=== PATIENT | male | born 1940 | race Caucasian/White ===

== ENCOUNTER 2020-07-05 01:00 | Inpatient (IN) | payer MEDICARE, OTHER ==
[~2020-07-05] VITALS: Ht 175.3 cm; Wt 66.7 kg
--- OUTSIDE RECORDS SUMMARY | ~2020-07-05 | XMS | Clinical Summary ---
Demographics + + + | Address | [address] | | | [place] [address] | + + + | Home Phone | | + + + | Preferred Language | Unknown | + + + | Marital Status | | + + + | Gnosticist Affiliation | Unknown | + + + | Race | Unknown | + + + | Ethnic Group | Unknown | + + + Author + + + | Author | [facility] | | | and [place] | + + + | Organization | [facility] | | | and [place] | + + + | Address | Unknown | + + + | Phone | Unavailable | + + + Support + + +---------+ + | Name | Relationship | Address | Phone | + + +---------+ + | Alison Agosto | ECON | Unknown | | + + +---------+ + Care Team Providers + +------+ + | Care Stained Glass Installer Name | Role | Phone | + +------+ + | Provider Not, In System | PCP | Unavailable | + +------+ + Allergies + + + + + + | Active Allergy | Reactions | Severity | Noted | Comments | | | | | Date | | + + + + + + | Penicillins | Rash | Low | 06/03/20 | | | | | | 20 | | + + + + + + Medications + + + +---------+------+------+-------+ | Medication | Sig | Dispensed | Refills | Star | End | Statu | | | | | | t | Date | s | | | | | | Date | | | + + + +---------+------+------+-------+ | lamoTRIgine | Take 50 mg by mouth | | 0 | | | Activ | | (LAMICTAL) 150 MG | 2 times daily . | | | | | e | | tablet | | | | | | | + + + +---------+------+------+-------+ | folic acid | Take 400 mcg by | | 0 | | | Activ | | (FOLVITE) 800 MCG | mouth Daily. 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 No further cardiac testing or treatment is | | indicated for this problem at this time. | + + + + + | Other hyperlipidemia | 06/03/2020 | + + + + + | Last Assessment & Plan: Currently diet controlled. Will | | obtain a lipid panel to further evaluate. | + + + + + | TOBIAS (dyspnea on exertion) | 06/03/2020 | + + + + + | Last Assessment & Plan: Unknown etiology. Differential | | diagnosis includes structural heart disease, CAD and/or anemia | | amongst others. Patient's exercise SPECT MPI was equivocal with | | normal perfusion imaging however abnormal ECG response to | | exercise.He is reluctant to consider proceeding to left heart | | cath at this time, we can rule out structural heart disease in | | the meantime with a resting 2D echocardiogram. Further | | recommendations pending results of testing. | + + Encounters +--------+ + + + + | Date | Type | Specialty | Care Team | Description | +--------+ + + + + | 07/03/ | Telephone | Neurology | Meliza Gomez, | Referral | | 2019 | | | MD | | +--------+ + + + + | 06/24/ | Office | Cardiology | Ricky, | TOBIAS (dyspnea on | | 2019 | Visit | | MD Nat | exertion) (Primary | | | | | | Dx); Chest pain, | | | | | | unspecified type; | | | | | | Other hyperlipidemia | +--------+ + + + + | 06/12/ | Hospital | Radiology | Ricky, | TOBIAS (dyspnea on | | 2020 | Encounter | | MD Nat | exertion) | +--------+ + + + + | 06/03/ | Office | Cardiology | Ricky, | Chest pain, | | 2020 | Visit | | MD Nat | unspecified type | | | | | | (Primary Dx); TOBIAS | | | | | | (dyspnea on | | | | | | exertion); | | | | | | Hyperlipidemia, | | | | | | unspecified | | | | | | hyperlipidemia type; | | | | | | Other | | | | | | hyperlipidemia | +--------+ + + + + from Last 3 Months Family History + +------+ + + | Relation | Name | Status | Comments | + +------+ + + | Father | | | | + +------+ + + | Mother | | | | + +------+ + + Social History + +-------+ +--------+------+ | Tobacco Use | Types | Packs/Day | Years | Date | | | | | Used | | + +-------+ +--------+------+ | Never Smoker | | | | | + +-------+ +--------+------+ + +---+---+---+ | Smokeless Tobacco: | | | | | Never Used | | | | + +---+---+---+ + + +---------+ + | Alcohol Use | Drinks/Week | oz/Week | Comments | + + +---------+ + | Yes | | | rarely | + + +---------+ + + + + | Sex Assigned at | Date Recorded | | | | + + + | Not on file | | + + + Last Filed Vital Signs + + + + + | Vital Sign | Reading | Time Taken | Comments | + + + + + | Blood Pressure | 142/76 | 06/24/2020 11:09 AM | | | | | PDT | | + + + + + | Pulse | 88 | 06/24/2020 11:09 AM | | | | | PDT | | + + + + + | Temperature | 36.8 C (98.2 F) | 06/24/2020 11:09 AM | | | | | PDT | | + + + + + | Respiratory Rate | - | - | | + + + + + | Oxygen Saturation | 98% | 06/24/2020 11:09 AM | | | | | PDT | | + + + + + | Inhaled Oxygen | - | - | | | Concentration | | | | + + + + + | Weight | 67.4 kg (148 lb 9.6 | 06/24/2020 11:09 AM | | | | oz) | PDT | | + + + + + | Height | 165.1 cm (5' 5") | 06/24/2020 11:09 AM | | | | | PDT | | + + + + + | Body Mass Index | 24.73 | 06/24/2020 11:09 AM | | | | | PDT | | + + + + + Plan of Treatment +--------+---------+ + + + | Date | Type | Specialty | Care Team | Description | +--------+---------+ + + + | 08/28/ | Office | Neurology | Meliza Gomez, | | | 2019 | Visit | | MD Ruth ALCAZAR | | | | | | [address] | | | | | | [place] [id number] | | | | | | [phone] | | | | | | | | +--------+---------+ + + + + + +-------+ + | Health Maintenance | Due Date | Last | Comments | | | | Done | | + + +-------+ + | Hepatitis C | | | | | Screening | 2 | | | + + +-------+ + | Vaccine: | | | | | Dtap/Tdap/Td (1 - | 1 | | | | Tdap) | | | | + + +-------+ + | Vaccine: Zoster (1 | | | | | of 2) | 2 | | | + + +-------+ + | Vaccine: | | | | | Pneumococcal 65+ (1 | 7 | | | | of 1 - PPSV23) | | | | + + +-------+ + | Adult Annual | | | | | Wellness Visit | 0 | | | + + +-------+ + | Vaccine: Influenza | | | | | (#1) | 0 | | | + + +-------+ + Procedures + +--------+ + + + | Procedure Name | Priori | Date/Time | Associated Diagnosis | Comments | | | ty | | | | + +--------+ + + + | NM NUCLEAR STRESS | Routin | 06/24/2020 | TOBIAS (dyspnea on | Results for this | | TEST (EXERCISE) | e | 11:18 AM | exertion) | procedure are in the | | | | PDT | | results section. | + +--------+ + + + | ECG 12 LEAD | Routin | 06/03/2020 | Chest pain, | Results for this | | | e | 1:49 PM | unspecified type | procedure are in the | | | | PDT | | results section. | + +--------+ + + + from Last 3 Months Results NM Nuclear Stress Test (Exercise) (06/24/2020 11:18 AM PDT) + +--------+ + + + | Component | Value | Ref Range | Performed | Pathologist | | | | | At | Signature | + +--------+ + + + | BASELINE | 62 | bpm | [facility] | | | HEART RATE | | | | | + +--------+ + + + | BASELINE | 139/67 | mmHg | [facility] | | | BLOOD | | | | | | PRESSURE | | | | | + +--------+ + + + | PEAK HEART | 62 | | [facility] | | | RATE | | | | | + +--------+ + + + | PEAK BLOOD | 165/64 | mmHG | [facility] | | | PRESSURE | | | | | + +--------+ + + + | Target HR | 122 | | [facility] | | + +--------+ + + + | Exercise | 34 | sec | [facility] | | | duration | | | | | | (sec) | | | | | + +--------+ + + + | Percent HR | 43 | | [facility] | | + +--------+ + + + | Exercise | 7 | min | [facility] | | | duration | | | | | | (min) | | | | | + +--------+ + + + | Estimated | 10.1 | METS | [facility] | | | workload | | | | | + +--------+ + + + | Max | 143 | | [facility] | | | Predicted | | | | | | HR | | | | | + +--------+ + + + | LVEF-SPECT | 73 | % | [facility] | | | NUCLEAR | | | | | | STRESS/VIAB | | | | | | ILITY | | | | | + +--------+ + + + | NM stress | 71 | | [facility] | | | end | | | | | | diastolic | | | | | | volume | | | | | + +--------+ + + + | NM stress | 19 | | [facility] | | | end | | | | | | systolic | | | | | | volume | | | | | + +--------+ + + + | NM rest end | 76 | | [facility] | | | diastolic | | | | | | volume | | | | | + +--------+ + + + | NM rest end | 21 | | [facility] | | | systolic | | | | | | volume | | | | | + +--------+ + + + | TID VALUE | 0.87 | | [facility] | | + +--------+ + + + | Angina | 2 | | [facility] | | | Index | | | | | + +--------+ + + + | ST | 2.0 | mm | [facility] | | | Depression | | | | | | (mm) | | | | | + +--------+ + + + | Murray | -10 | | [facility] | | | Treadmill | | | | | | Score | | | | | + +--------+ + + + + + | Specimen | + + | | + + + + | Addenda | + + | Addendum by Nat Hoffmann MD on 06/24/2020 11:51 AM Left ventricle | | perfusion is normal. There is no inducible ischemia. There is diaphragmatic | | attenuation artifact present. The LV function is normal. Left ventricular ejection | | fraction was 73%. The ECG portion of this test is abnormal. This is a positive test | | by ECG criteria, but nucler imaging is normal. The computer-calculated TID score | | is 0.87. Murray Treadmill Score =-10 (Moderate Risk) Overall abnormal maximal | | exercise SPECT MPI nuclear stress test due to development of exercise limiting dyspnea | | (potential anginal equivalent) and up to [address] segment depression in inferior and | | lateral leads. | + + + + + | Narrative | Performed At | + + + | Left | [facility] | | ventricle perfusion is normal. There is no inducible ischemia. There | | | is diaphragmatic attenuation artifact present. The LV function is | | | normal. Left ventricular ejection fraction was 73%. The ECG portion | | | of this test is abnormal. This is a positive test by ECG criteria, but | | | nucler imaging is normal. The computer-calculated TID score is | | | 0.87. Murray Treadmill Score =-10 (Moderate Risk) Overall abnormal | | | maximal exercise SPECT MPI nuclear stress test due to development of | | | exercise limiting dyspnea (potential anginal equivalent) and up to 2 | | | mm ST segment depression in inferior and lateral leads. | | |and up to [address] segment depression in inferior and lateral leads. | | | | | + + + + +---------+ + + | Performing | Address | City/State/Zipcode | Phone Number | | Organization | | | | + +---------+ + + | [facility] | | | | + +---------+ + + ECG 12 lead (06/03/2020 1:49 PM PDT) + + + + + + | Component | Value | Ref Range | Performed | Pathologist | | | | | At | Signature | + + + + + + | VENTRICULAR | 67 | BPM | [facility] | | | RATE EKG | | | | | + + + + + + | ATRIAL RATE | 67 | BPM | [facility] | | + + + + + + | P-R | 164 | ms | [facility] | | | INTERVAL | | | | | + + + + + + | QRS | 86 | ms | [facility] | | | DURATION | | | | | + + + + + + | Q-T | 380 | ms | [facility] | | | INTERVAL | | | | | + + + + + + | Q-T | 401 | ms | [facility] | | | INTERVAL | | | | | | (CORRECTED) | | | | | + + + + + + | P WAVE AXIS | 73 | degrees | [facility] | | + + + + + + | QRS AXIS | 78 | degrees | [facility] | | + + + + + + | T AXIS | 77 | degrees | [facility] | | + + + + + + | INTERPRETAT | Sinus rhythm with | | [facility] | | | ION TEXT | occasional Premature | | | | | | ventricular | | | | | | complexesOtherwise | | | | | | normal ECGNo previous | | | | | | ECGs availableConfirmed | | | | | | by MD RICKY, | | | | | | ANY ([id number]) on | | | | | | 06/04/2020 5:38:54 PM | | | | + + + + + + + + | Specimen | + + | | + + + + + | Narrative | Performed At | + + + | | | + + + + +---------+ + + | Performing | Address | City/State/Zipcode | Phone Number | | Organization | | | | + +---------+ + + | [facility] | | | | + +---------+ + + from Last 3 Months Insurance + +--------+ +--------+ +---------+--------+ | Payer | Benefi | Subscriber | Effect | Phone | Address | Type | | | t Plan | ID | [place] | | | | | | / | | Dates | | | | | | Group | | | | | | + +--------+ +--------+ +---------+--------+ | MEDICARE | MEDICA | [id number] | | [phone] | | Medica | | | RE | | 007-Pr | 5 | | re | | | PART A | | esent | | | | | | AND B | | | | | | + +--------+ +--------+ +---------+--------+ | | TRICAR | [id number] | 6/29/2 | [phone] | | Indemn | | | E FOR | | 020-Pr | 0 | | ity | | | LIFE | | esent | | | | + +--------+ +--------+ +---------+--------+ + +--------+ +--------+ + + | Guarantor Name | Accoun | Relation to | Date | Phone | Billing Address | | | t Type | Patient | of | | | | | | | | | | + +--------+ +--------+ + + | Abdifatah Ledbetter | Person | Self [birth year] [address] | | | al/Fam | | 1940 | [phone] | [place] | | | [place] | | | [address] (Home) | [address] | + +--------+ +--------+ + + Advance Directives + + + + + | Type | Date Recorded | Patient | Explanation | | | | 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
--- OUTSIDE RECORDS SUMMARY | ~2020-07-05 | XMS | Encounter Summary ---
Demographics + + + | Address | [address] | | | [place] [address] | + + + | Home Phone | | + + + | Preferred Language | Unknown | + + + | Marital Status | | + + + | Yazidism Affiliation | Unknown | + + + | Race | Unknown | + + + | Ethnic Group | Unknown | + + + Author + + + | Author | [facility] | | | and [place] | + + + | Organization | [facility] | | | and [place] | + + + | Address | Unknown | + + + | Phone | Unavailable | + + + Support + + +---------+ + | Name | Relationship | Address | Phone | + + +---------+ + | Vaneatuljackjuan Agosto | ECON | Unknown | | + + +---------+ + Care Team Providers + +------+ + | Care Bpm Architect Name | Role | Phone | + +------+ + | Provider Not, In System | PCP | Unavailable | + +------+ + Reason for Referral Diagnostic/Screening (Routine) + +--------+ + + + + | Status | Reason | Specialty | Diagnoses / | Referred By | Referred To | | | | | Procedures | Contact | Contact | + +--------+ + + + + | Authorized | | Radiology | Diagnoses | | Geovanni | | | | | TOBIAS | Tahira, | Cardiology | | | | | (dyspnea on | MD Nat | Madelyn Nuc | | | | | exertion) | 1100 | Med 1100 | | | | | Procedures | OTTONIEL COLON | OTTONIEL COLON | | | | | NM Nuclear | DARLENE F | [place], [place] | | | | | Stress Test | [place], [place] | [address] | | | | | (Exercise) | [id number] | Phone: | | | | | | Phone: | [phone] | | | | | | [phone] | Fax: | | | | | | Fax: | [phone] | | | | | | [phone] | | + +--------+ + + + + Reason for Visit + + + | Reason | Comments | + + + | Establish Care | | + + + Evaluate & Treat (Routine) + +--------+ + + + + | Status | Reason | Specialty | Diagnoses / | Referred By | Referred To | | | | | Procedures | Contact | Contact | + +--------+ + + + + | Authorized | | Cardiology | Diagnoses | Charly, | | | | | | Chest pain, | Telly Hairston | Tahira, | | | | | unspecified | [address] | MD Nat | | | | | Procedures | [address] | [address] | | | | | Consult | [place] | [address] | | | | | | [place] [address] | [place], [place] | | | | | | Phone: | [address] Phone: | | | | | | [phone] | [phone] | | | | | | Fax: | Fax: | | | | | | [phone] | [phone] | + +--------+ + + + + Encounter Details +--------+---------+ + + + | Date | Type | Department | Care Team | Description | +--------+---------+ + + + | 06/03/ | Office | [facility] | Tahira, | Chest pain, | | 2020 | Visit | CARDIOLOGY [place] | MD Nat 1100 | unspecified type | | | | [address] | [address]ON F | (Primary Dx); TOBIAS | | | | [place], [place] | [place] [address] | (dyspnea on | | | | [address] | [phone] | exertion); | | | | [phone] | | Hyperlipidemia, | | | | | | unspecified | | | | | | hyperlipidemia type; | | | | | | Other | | | | | | hyperlipidemia | +--------+---------+ + + + Social History + +-------+ +--------+------+ [...] on file | | + + + documented as of this encounter Last Filed Vital Signs + + + + + | Vital Sign | Reading | Time Taken | Comments | + + + + + | Blood Pressure | 138/70 | 06/03/2020 1:41 PM | | | | | PDT | | + + + + + | Pulse | 70 | 06/03/2020 1:41 PM | | | | | PDT | | + + + + + | Temperature | 36.7 C (98 F) | 06/03/2020 1:41 PM | | | | | PDT | | + + + + + | Respiratory Rate | - | - | | + + + + + | Oxygen Saturation | 99% | 06/03/2020 1:41 PM | | | | | PDT | | + + + + + | Inhaled Oxygen | - | - | | | Concentration | | | | + + + + + | Weight | 66.2 kg (146 lb) | 06/03/2020 1:41 PM | | | | | PDT | | + + + + + | Height | - | - | | + + + + + | Body Mass Index | - | - | | + + + + + documented in this encounter Progress Notes Nat Hoffmann MD - 06/03/2020 1:30 PM PDT Date of visit: 06/03/2020 Primary Care Physician: In System Provider Not CHIEF COMPLAINT: Chief Complaint Patient presents with [facility] Care HISTORY OF PRESENT ILLNESS: Abdifatah Baker is 79 y.o. male with past medical history of peptic/duodenal ulcer, anemia and hyperlipidemia who presents to establish cardiac care. He states that he has been exper iencing dyspnea on exertion over the past several months that has been getting progressively worse. He also has been experiencing left-sided precordial chest discomfort that he now at tributes to peptic ulcer disease because they appear to occur at the same time. REVIEW OF SYSTEMS: Review of Systems Constitutional: Negative. Respiratory: Positive for shortness of breath. Negative for cough and wheezing. Cardiovascular: Positive for chest pain. Negative for palpitations, orthopnea, claudication , leg swelling and PND. Gastrointestinal: Negative for nausea and vomiting. Neurological: Negative for dizziness and headaches. PHYSICAL EXAM: BP 138/70 | Pulse 70 | Temp 36.7 C (98 F) (Infrared Device) | Wt 66.2 kg (146 lb) | SpO2 99% Physical Exam Constitutional: Well-developed. Neck: No JVD present. No thyromegaly present. Cardiovascular: Regular rhythm, S1 normal and S2 normal. No murmur heard. Pulses: Carotid pulses are 2+ on the right side, and 2+ on the left side. Radial pulses are 2+ on the right side, and 2+ on the left side. Pulmonary/Chest: Effort normal and breath sounds normal. No wheezes. No rales. Abdominal: Soft. No tenderness. Musculoskeletal: No edema. DATA: Blood tests: No results found for: WBC, RBC, HGB, HCT, PLT No results found for: NA, K, CL, CO2, ANIONGAP, GLUF, BUN, CREATININE, EGFR No results found for: CHOL, TRIG, LDL, LDL, GLUF No results found for: BNP, TSH, CRP No results found for: TOTEPI EKG (06/03/2020): Performed and reviewed today. Normal sinus rhythm. PVCs. No prior ECG av ailable for comparison. Last Echo: Last stress test: Last cath: Carotid US: AAA screening: Lower extremity US: OTHERS: Plan ASSESSMENT & PLAN: Abdifatah Bakre is a 79 y.o. male with the following problems and associated assessment and plan Other hyperlipidemia Currently diet controlled. Will obtain a lipid panel to further evaluate. Chest pain Likely related to peptic/duodenal ulcer disease. No further cardiac testing or treatment i s indicated for this problem at this time. TOBIAS (dyspnea on exertion) Unknown etiology. Differential diagnosis includes CAD and/or anemia amongst others. Will further evaluate with an exercise nuclear stress test. Further recommendations pending resu lts of testing. Return for after stress test done. The following portions of the patient's history were reviewed and updated as appropriate: Allergies, current medications. Family history, past medical history, past social history, past surgical history. Problem list. Thank you for allowing me to participate in the care of this patient. Please, do not hesitate to contact me for any further questions. Nat Hoffmann MD 06/03/2020 documented in this encounter Miscellaneous Notes Assessment & Plan Note - Nat Hoffmann MD - 06/03/2020 2:20 PM PDTAssociated Problem (s): TOBIAS (dyspnea on exertion)Unknown etiology. Differential diagnosis includes CAD and/or anemia amongst others. Will further evaluate with an exercise nuclear stress test. Further recommendations pending results of testing.Electronically signed by MD ovidio Conklin 06/03/2020 2:21 PM PDTAssessment & Plan Note - Nat Hoffmann MD - 06/03/2020 2:19 PM PDTAssociated Problem(s): Chest painLikely related to peptic/duodenal ulcer disease. No further cardiac testing or treatment is indicated for this problem at this time.Electronical ly signed by Nat Hoffmann MD at 06/03/2020 2:20 PM PDTAssessment & Plan Note - Nat Mclean MD - 06/03/2020 2:19 PM PDTAssociated Problem(s): Other hyperlipidemiaCurrent ly diet controlled. Will obtain a lipid panel to further evaluate. documented in this encounter Plan of Treatment +--------+---------+ + + + | Date | Type | Specialty | Care Team | Description | +--------+---------+ + + + | 08/28/ | Office | Neurology | Meliza Gomez, | | | 2019 | Visit | | MD [address] | | | | | | [address] | | | | | | [place] [address] | | | | | | [phone] | | | | | | | | +--------+---------+ + + + + +------+--------+ + + | Name | Type | Priori | Associated Diagnoses | Order Schedule | | | | ty | | | + +------+--------+ + + | CBC with | Lab | Routin | TOBIAS (dyspnea on | 1 Occurrences | | Differential | | e | exertion) | starting 06/03/2020 | | | | | | until 06/03/2021 | + +------+--------+ + + | Lipid Panel | Lab | Routin | Hyperlipidemia, | 1 Occurrences | | | | e | unspecified | starting 06/03/2020 | | | | | hyperlipidemia type | until 06/03/2021 | + +------+--------+ + + documented as of this encounter Procedures + +--------+ + + + | [...] section. | + +--------+ + + + documented in this encounter Results NM Nuclear Stress Test (Exercise) (06/24/2020 [...] | | | | | by MD TAHIRA, | | | | | | ANY [phone]) on | | | | | | [...] | | | + +---------+ + + documented in this encounter Visit Diagnoses + + | Diagnosis | + + | Chest pain, unspecified type - Primary | + + | TOBIAS (dyspnea on exertion) Other dyspnea and respiratory abnormality | + + | Hyperlipidemia, unspecified hyperlipidemia type | + + documented in this encounter"
--- OUTSIDE RECORDS SUMMARY | ~2020-07-05 | XMS | Encounter Summary ---
Demographics + + + | Address | [address] | | | [place] [address] | + + + | Home Phone | | + + + | Preferred Language | Unknown | + + + | Marital Status | | + + + | Religion Affiliation | Unknown | + + + | Race | Unknown | + + + | Ethnic Group | Unknown | + + + Author + + + | Author | [facility] | | | and [place] | + + + | Organization | [facility] | | | and [...] Team Providers + +------+ + | Care Mental Health Case Manager Name | Role | Phone | + [...] | (dyspnea on | MD Nat | Eidson Nuc | | | | | exertion) | 1100 | Med 1100 | | | | | Procedures | OTTONIEL CLOON | [address] COLON | | | | | NM Nuclear | DARLENE F | [place], [place] | | | | | Stress Test | [place], [place] | [address] | | | | | (Exercise) | [id number] | Phone: | | | | | | Phone: | [phone] | | | | | | [phone] | Fax: | | | | | | Fax: | [phone] | | | | | | [phone] | | + +--------+ + + + + Reason for Visit Diagnostic/Screening (Routine) + +--------+ + + + [...] | (dyspnea on | MD Nat | Eidson Nuc | | | | | exertion) | 1100 | Med 1100 | | | | | Procedures | OTTONIEL COLON | OTTONIEL COLON | | | | | NM Nuclear | DARLENE F | [place], [place] | | | | | Stress Test | [place] | [address] | | | | | (Exercise) | [address] | Phone: | | | | | | Phone: | [phone] | | | | | | [phone] | Fax: | | | | | | Fax: | [phone] | | | | | | [phone] | | + +--------+ + + + + Encounter Details +--------+ + + + + | Date | Type | Department | Care Team | Description | +--------+ + + + + | 06/12/ | Hospital | [facility] | Tahira | JATINDER (dyspnea on | | 2020 | Encounter | CARDIOLOGY DEE[place]AY | MD Nat 1100 | exertion) | | | | NUC MED 1100 | [address]TTONIEL COLON | | | | | [address] | [place] [address] | | | | | [place], [place] | [phone] | | | | | [address] | | | | | | [phone] | | | +--------+ + + + + Social History + +-------+ [...] + + documented as of this encounter Medications at Time of Discharge + + + +---------+--------+ + | Medication | Sig | Dispensed | Refills | Start | End Date | | | | | | Date | | + + + +---------+--------+ + | folic acid | Take 400 mcg by | | 0 | | | | (FOLVITE) 800 MCG | mouth Daily. | | | | | | tablet | | | | | | + + + +---------+--------+ + | lamoTRIgine | Take 50 mg by mouth | | 0 | | | | (LAMICTAL) 150 MG | 2 times daily . | | | | | | tablet | | | | | | + + + +---------+--------+ + documented as of this encounter Plan of Treatment +--------+---------+ + + + | Date | Type | Specialty | Care Team | Description | +--------+---------+ + + + | 08/28/ | Office | Neurology | Meliza Gomez, | | | 2019 | Visit | | MD Ruth ALCAZAR | | | | | | [address] | | | | | | [place] [address] | | | | | | [phone] | | | | | | | | +--------+---------+ + + + documented as of this [...] + | Diagnosis | + + | TOBIAS (dyspnea on exertion) Other dyspnea and respiratory abnormality | + + documented in this encounter Administered Medications + +--------+ + +------+------+ | Medication Order | MAR | Action | Dose | Rate | Site | | | Action | Date | | | | + +--------+ + +------+------+ | technetium TC-99M sestamibi | Given | 06/12/20 | 11.2 | | | | (CARDIOLITE) injection 11.2 | | 20 10:45 | millicur | | | | millicurie 11.2 millicurie, | | AM PDT | ies | | | | Intravenous, ONCE, [facility] 06/12/20 at | | | | | | | 1115, For 1 dose, Nuclear | | | | | | | Medicine | | | | | | + +--------+ + +------+------+ +---+---+ | | | +---+---+ + +-------+ + +---+---+ | technetium TC-99M sestamibi | Given | 06/12/20 | 30.7 | | | | (CARDIOLITE) injection 30.7 | | 20 11:17 | millicur | | | | millicurie 30.7 millicurie, | | AM PDT | ies | | | | Intravenous, ONCE, Angela 06/12/20 at | | | | | | | 1115, For 1 dose, Nuclear | | | | | | | Medicine | | | | | | + +-------+ + +---+---+ +---+---+ | | | +---+---+ documented in this encounter"
--- OUTSIDE RECORDS SUMMARY | ~2020-07-05 | XMS | Encounter Summary ---
Demographics + + + | Address | [address] | | | [place] [address] | + + + | Home Phone | | + + + | Preferred Language | Unknown | + + + | Marital Status | | + + + | Judaism Affiliation | Unknown | + + + | Race | Unknown | + + + | Ethnic Group | Unknown | + + + Author + + + | Author | [facility] | | | and [place] | + + + | Organization | [facility] | | | [...] Team Providers + +------+ + | Care Addiction Nurse Name | Role | Phone | + +------+ + | Provider Not, In System | PCP | Unavailable | + +------+ + Reason for Visit + +--------+ + | Reason | Onset | Comments | | | Date | | + +--------+ + | Referral | 07/03/ | | | | 2020 | | + +--------+ + Encounter Details +--------+ + + + + | Date | Type | Department | Care Team | Description | +--------+ + + + + | 07/03/ | Telephone | [facility] | Meliza Gomez, | Referral | | 2020 | | NEUROLOGY [address] | MD [address] | | | | | [address] | [address] | | | | | [place], [place] | [place] [address] | | | | | [address] | [phone] | | | | | [phone] | | | +--------+ + + + [...] + + documented as of this encounter Miscellaneous Notes Telephone Encounter - Claudia Sol - 07[facility]03/2020 12[facility]03 [facility] and would like a call back. Additional Call Details: Calling to schedule from new referral. Please call back at mobile number in chart. If this is a symptom based call, was patient offered triage? Not Applicable If this is a symptom based call and you were unable to immediately transfer the call to a anny monteiro end user support specialist was caller made aware that if at any time he feels it is an emergency they diane uld call 911 or go to the nearest emergency room? not applicable documented in this encounter Plan of Treatment +--------+---------+ + + + | Date | Type | Specialty | Care Team | Description | +--------+---------+ + + + | 08/28/ | Office | Neurology | Meliza Gomez, | | | 2019 | Visit | | MD Ruth ALCAZAR | | | | | | [address] | | | | | | [place] [address] | | | | | | [phone] | | | | | | | | +--------+---------+ + + + documented as of this encounter Visit Diagnoses Not on filedocumented in this encounter"
--- OUTSIDE RECORDS SUMMARY | ~2020-07-05 | XMS | Encounter Summary ---
Demographics + + + | Address | [address] | | | [place] [address] | + + + | Home Phone | | + + + | Preferred Language | Unknown | + + + | Marital Status | | + + + | Scientology Affiliation | Unknown | + + + [...] | + + +---------+ + | Alison Diann Agosto | ECON | Unknown | | + + +---------+ + Care Team Providers + +------+ + | Care Investigator Cash Shortage Name | Role | Phone | + [...] + +--------+ + + + + | Pending | | Cardiology | Diagnoses | | VENU | | Review | | | TOBIAS | Tahira, | CARDIOLOGY | | | | | (dyspnea on | MD Nat | DEEJAY | | | | | exertion) | 1100 | [address] | | | | | Procedures | [address] | | | | | | ECHO | [address] | [place], [place] | | | | | Complete | [place], [place] | [address] | | | | | | [address] | Phone: | | | | | | Phone: | [phone] | | | | | | [phone] | Fax: | | | | | | Fax: | [phone] | | | | | | [phone] | | + +--------+ + + + + Evaluate & Treat (Routine) + + + + + + + | Status | Reason | Specialty | Diagnoses / | Referred By | Referred To | | | | | Procedures | Contact | Contact | + + + + + + + | Authorizatio | Specialty | Hematology / | Diagnoses | | Lawrence, | | n not | Services | Oncology | TOBIAS | Tahira, | Car Michael MD | | Required | Required | | (dyspnea on | MD Nat | [address] | | | | | exertion) | [address] | [address] | | | | | Hem/New | [address] | [place] | | | | | [address] | [address] | [place] [address] | | | | | | [place], [place] | Phone: | | | | | | [address] | [phone] | | | | | | Phone: | Fax: | | | | | | [phone] | [phone] | | | | | | Fax: | | | | | | | [phone] | | + + + + + + + Reason for Visit + + + | Reason | Comments | + + + | Follow-up | stress test | + + + Encounter Details +--------+---------+ + + + | Date | Type | Department | Care Team | Description | +--------+---------+ + + + | 06/24/ | Office | [facility] | Tahira | JATINDER (dyspnea on | | 2019 | Visit | CARDIOLOGY [place] | MD Nat [address] | exertion) (Primary | | | | [address] | [address] | Dx); Chest pain, | | | | [place], [place] | [place] [address] | unspecified type; | | | | [address] | [phone] | Other hyperlipidemia | | | | [phone] | | | +--------+---------+ + + + Social History [...] encounter Progress Notes Nat Hoffmann MD - 06/24/2020 11:00 AM PDT Date of visit: 06/24/2020 Primary Care Physician: In System Provider Not CHIEF COMPLAINT: Chief Complaint Patient presents with Follow-up stress test HISTORY OF PRESENT ILLNESS: Abdifatah Ledbetter is 79 y.o. male with past medical history of peptic/duodenal ulcer, anemia a nd hyperlipidemia who presents for follow-up. He continues to experience dyspnea on exertio n as previously described and has been getting progressively worse. He also continues to ex perience left-sided precordial chest discomfort that he attributes to peptic ulcer disease b ecause they appear to occur at the same time. REVIEW OF SYSTEMS: Review of Systems Constitutional: Negative. Respiratory: Positive for shortness of breath. Negative for cough and wheezing. Cardiovascular: Positive for chest pain. Negative for palpitations, orthopnea, claudication , leg swelling and PND. Gastrointestinal: Negative for nausea and vomiting. Neurological: Negative for dizziness and headaches. PHYSICAL EXAM: BP 142/76 | Pulse 88 | Temp 36.8 C (98.2 F) | Ht 1.651 m (5' 5") | Wt 67.4 kg (148 lb 9.6 oz) | SpO2 98% | BMI 24.73 kg/m Physical Exam Constitutional: Well-developed. Neck: No JVD [...] ailable for comparison. Last Echo: Last stress test (05/2020): Exercise SPECT MPI Left ventricle perfusion is normal. There is no inducible ischemia. There is diaphragmatic attenuation artifact present. The LV function is normal. Left ventricular ejection fraction was 73%. The ECG portion of this test is abnormal. This is a positive test by ECG criteria, but n ucler imaging is normal. The computer-calculated TID score is 0.87. Murray Treadmill Score =-10 (Moderate Risk) Overall abnormal maximal exercise SPECT MPI nuclear stress test due to development of exerc ise limiting dyspnea (potential anginal equivalent) and up to [address] segment depression in inferior and lateral leads. Last cath: Carotid US: AAA screening: Lower extremity US: OTHERS: Plan ASSESSMENT & PLAN: Abdifatah Ledbetter is a 79 y.o. male with the following problems and associated assessment and plan TOBIAS (dyspnea on exertion) Unknown etiology. Differential diagnosis includes structural heart disease, CAD and/or ane bunny amongst others. Patient's exercise SPECT MPI was equivocal with normal perfusion imaging however abnormal E CG response to exercise. He is reluctant to consider proceeding to left heart cath at this time, we can rule out str uctural heart disease in the meantime with a resting 2D echocardiogram. Further recommendat ions pending results of testing. Chest pain Likely related to peptic/duodenal ulcer disease. No further cardiac testing or treatment i s indicated for this problem at this time. Other hyperlipidemia Currently diet controlled. Will obtain a lipid panel to further evaluate. Return for after echo done. The following portions of the patient's history were reviewed and updated as appropriate: Allergies, current medications. Family history, past medical history, past social history, past surgical history. Problem list. Thank you for allowing me to participate in the care of this patient. Please, do not hesitate to contact me for any further questions. Nat Hoffmann MD 06/24/2020 documented in this encounter Miscellaneous Notes Assessment & Plan Note - Nat Hoffmann MD - 06/24/2020 11:14 AM PDTAssociated Problem (s): Other hyperlipidemiaCurrently diet controlled. Will obtain a lipid panel to further ev aluate. ssessment & Plan Note - Nat Hoffmann MD - 06/24/2020 11:13 AM PDTAssociated Problem(s): Chest pa inLikely related to peptic/duodenal ulcer disease. No further cardiac testing or treatment is indicated for this problem at this time. ssessment & Plan Note - Nat Hoffmann MD - 06/24/2020 11:13 A M PDTAssociated Problem(s): TOBIAS (dyspnea on exertion)Unknown etiology. Differential diagnos is includes structural heart disease, CAD and/or anemia amongst others. Patient's exercise SPECT MPI was equivocal with normal perfusion imaging however abnormal E CG response to exercise. He is reluctant to consider proceeding to left heart cath at this time, we can rule out str uctural heart disease in the meantime with a resting 2D echocardiogram. Further recommendat ions pending results of testing. documented in this encounter Plan of Treatment +--------+---------+ + + + | Date | Type | Specialty | Care Team | Description | +--------+---------+ + + + | 08/28/ | Office | Neurology | Meliza Gomez, | | 2019 | Visit | | MD Ruth ALCAZAR | | | | | | [address] | | | | | | [place] [address] | | | | | | [phone] | | | | | | | | +--------+---------+ + + + + + +--------+ + + | Name | Type | Priori | Associated Diagnoses | Order Schedule | | | | ty | | | + + +--------+ + + | ECHO Complete | Echocardiog | Routin | TOBIAS (dyspnea on | Expected: | | | steven | e | exertion) | 06/24/2020, Expires: | | | | | | 06/24/2021 | + + +--------+ + + + + +--------+ + + | Name | Type | Priori | Associated Diagnoses | Order Schedule | | | | ty | | | + + +--------+ + + | Ambulatory referral | Outpatient | Routin | TOBIAS (dyspnea on | Ordered: 06/24/2020 | | to Hematology | Referral | e | exertion) | | + + +--------+ + + documented as of this encounter Visit Diagnoses + + | Diagnosis | + + | TOBIAS (dyspnea on exertion) - Primary Other dyspnea and respiratory abnormality | + + | Chest pain, unspecified type | + + | Other hyperlipidemia | + + documented in this encounter
[2020-07-05] MEDS ORDERED: LAMICTAL100 MG PO (01:42)
--- NOTE | 2020-07-05 04:44 | NUR ---
PT ARRIVED TO THE FLOOR, FIRST UNIT OF BLOOD INFUSING AT 100MLS/HR, SITE WNL. PT A/O AND ORINETED TO ROOM, CALL LIGHT IN REACH. RADIAL DRILL OPERATOR FOR PLASTIC ADMITING PT AND CHALK CUTTER FEBRUARY COLLECTING VS.
--- NOTE | 2020-07-05 05:12 | NUR ---
ASSESSMENT COMPLETE, BLOOD INFUSING AT 100MLS/HR. SITE WNL, PTM DENIES S/SX OF INFUSION REACTION. RATE INCREASED TO 150MLS/HR, WILL MONITOR. PT REPORTS 2/10 TOLERABLE PAIN, DENIES NAUSEA. ABD TENDERNESS NOTED. IN ROOM. NO FURTHER NEEDS, CALL LIGHT IN REACH. MOUTH SWABS PROVIDED, PT NPO FOR POSSIBLE SURGERY.
--- NOTE | 2020-07-05 06:15 | NUR ---
pt resting in bed, denies s/sx of blood infusion reaction. lab to return after bllod infusion to complete lab draw. pt denies needs, call light in reach.
--- NOTE | 2020-07-05 06:45 | NUR ---
NS FLUSH STARTED TO COMPLETE FIRST UNIT OF PRBC, PT RESTING QUIETLY IN BED AND APPEARS COMFORTABEL. NO DISTRESS NOTED. IV SITE REMAINS WNL, CALL LIGHT IN REACH.
--- NOTE | 2020-07-05 07:00 | NUR ---
IN ROOM TO ADMINISTER DILAUDID FOR 7/10 ABD PAIN. PT DENIES FURTHER NEEDS AT THIS TIME. BLOOD IS ALMOST COMPLETE. CALL LIGHT IS CLOSE.
--- NOTE | 2020-07-05 07:30 | NUR ---
PATIEN RESTING IN BED. WHITE BOARD UPDATED. PATIENT WOULD LIKE TO TAKE A SHOWER TODAY. SETS UP BATHROOM FOR SHOWER. CALL LIGHT WITHIN REACH. NO OTHER NEEDS AT THIS TIME
--- NOTE | 2020-07-05 07:36 | NUR ---
REPORT RECEIVED. PT IN BED, REPORTS 7/10 ABDOMINAL PAIN. 1ST UIT OF BLOOD COMPLETED. VITALS TAKEN AND STABLE. DENIES NEEDS.
--- NOTE | 2020-07-05 08:05 | NUR ---
2ND UNIT OF BLOOD STARTED. DOUBLE CHECKED WITH RHONDA ZELAYA. VITALS TAKEN AND STABLE. BEFORE AND AT 15 MIN. PT AWARE AND WITH NO S/SX OF REACTION. RATE AT 30ML/HR FOR FIRST 15 MINS. CHANGED TO 150ML/HR. PT TOLERATING WELL. DENIES NEEDS CALL LIGHT IN REACH.
--- NOTE | 2020-07-05 08:58 | NUR ---
ROUNDED WITH DR HUTCHINSON. POC DISCUSSED. CONCENT FOR COLONOSCOPY SIGNED.
--- NOTE | 2020-07-05 09:25 | NUR ---
PATIENT AMBULATING IN THE ROOM. I&O DONE. VITAL SIGNS DONE BY RN. CALL LIGHT WITHIN REACH. NO OTHER NEEDS AT THIS TIME
--- NOTE | 2020-07-05 11:09 | NUR ---
PT REPORTING ON AND OFF PAIN IN ABDOMEN. 08/07. DILAUDID ADMINSTERED. FLUIDS CHANGED TO D5LR PER ORDER. CALL LIGHT IN REACH.
[2020-07-05] MEDS ORDERED: OMEPRAZOLE40 MG PO (11:51)
--- NOTE | 2020-07-05 11:52 | NUR ---
MED REC COMPLETE
--- NOTE | 2020-07-05 13:08 | EKG ---
[facility] [address] [facility] [place], [place] [address] Signed Sinus bradycardia with sinus arrhythmia with occasional premature ventricular complexes Otherwise normal ECG No previous ECGs available Confirmed by ZITA ALEXANDER MD ([id number]) on 07/05/2020 1:08:09 PM Electronically Signed By: ZITA ALEXANDER MD 07/05/20 1308 PATIENT NAME: JAM WILKINS Electrocardiogram DATE OF : 44 PHYSICIAN: ZITA ALEXANDER MD REPORT #: [id number] REPORT IS CONFIDENTIAL AND NOT TO BE RELEASED WITHOUT AUTHORIZATION
--- NOTE | 2020-07-05 14:28 | NUR ---
PATIENT RESTING IN BED. VITAL SIGNS AND I&O DONE. CALL LIGHT WITHIN REACH. NO OTHER NEEDS AT THIS TIME
--- NOTE | 2020-07-05 14:51 | NUR ---
PT REPORTING SOME [place] WITH MIRILAX DRINK. TOLD PT TO TAKE A BREAK FROM DRINK. ZOFRAN GIVEN.
--- NOTE | 2020-07-05 17:33 | NUR ---
PATIENT SITTING UP IN BED. AND RN IN ROOM. VITAL SIGNS AND I&O DONE. CALL LIGHT WITHIN REACH. NO OTHER NEEDS AT THIS TIME
--- NOTE | 2020-07-05 18:00 | NUR ---
[facility].
--- NOTE | 2020-07-05 19:05 | NUR ---
SHIFT REPORT RECEIVED FROM DAYSHIFT GARCIA CARCAMO AT BEDSIDE. PT AWAKE AND AMBULATING IN ROOM, ACTIVE AND BUSY. APPEARS IN GOOD SPIRITS, IV FLUIDS INFUSING. SITE WNL, PT DENIES NEEDS OR CONCERNS. CALL LIGHT IN REACH. BOARD UPDATED.
--- NOTE | 2020-07-05 20:20 | NUR ---
SPOKE TO DR HUTCHINSON REGARDING PT'S LAMICTAL. PT TAKES 50MG PO BID. TELEPHONE ORDER READ BACK FROM DR HUTCHINSON STATING OKAY TO START HOME DOSE. PER MD, ALSO OKAY TO TAKE AM DOSE WITH "SMALL SIP OF WATER".
--- NOTE | 2020-07-05 21:25 | NUR ---
PT CALLED ASKING FOR SOMETHING FOR HICCUPS WILL TALK WITH PT'S PRIMARY RN. HE DENIES FURTHER NEEDS.
--- NOTE | 2020-07-05 21:38 | NUR ---
pt VS and I&Os complete. pt did nopt need anything else at this time.
--- NOTE | 2020-07-05 22:00 | NUR ---
ASSESSMENT COMPLETE, NEW BAG OF FLUIDS HUNG AND INFUSING PER MD ORDERS. IV SITES X2 WNL. PT DENIES PAIN, REPORTS HICCUPS. PRN NAUSEA MEDICATION SUGGESTED AND PT AGREES TO TRY. PT COMPLETED BOWEL PREP AT THIS TIME, VS AND I&O'S COMPLETED. NO FURTHER NEEDS. CALL LIGHT IN REACH.
--- NOTE | 2020-07-05 23:54 | NUR ---
ROUNDED ON PT. PT IN BATHROOM TO VOID, INDEPENDENT IN ROOM. TELE#[address], SINUS RHYTHM HR 76.
--- NOTE | 2020-07-06 00:20 | NUR ---
PT RESTING QUIETLY IN BED, NPO AT THIS TIME. CALL LIGHT IN REACH.
--- NOTE | 2020-07-06 01:55 | NUR ---
IN ROOM TO COMPLETE ASSESSMENT, PT RESTING IN BED AWAKE. VSS, TELE#[address]. HR LONG INTO THE 40'S WHILE SLEEPING. REPORTS TOLERABLE 1/10 PAIN, DENIES NAUSEA. IV FLUIDS INFUSING, SITE WNL. NO FURTHER NEEDS, CALL LIGHT IN REACH.
--- NOTE | 2020-07-06 04:51 | NUR ---
bag of lr primed and in room for or team. pt reporting increasing pain, prn pain medication given (see emar). iv site wnl. vs and i&os done. call light in reach.
--- NOTE | 2020-07-06 05:20 | NUR ---
PT VOIDING AND HAVING BM, ELIZABETH SINGLETARY ASSISTING PT WITH PREOP [place] AND LINEN CHANGE.
--- NOTE | 2020-07-06 05:43 | NUR ---
pts wipe down prior to procedure complete. new bedding, gown, and socks on pt. pt did not need anything else at this time.
--- NOTE | 2020-07-06 06:29 | NUR ---
INFORMED BY CABINETMAKER MAINTENANCE ONE OF PT'S VOID WAS PINK TINGED. HERE FOR GI BLEED WITH PLANNED COLONOSCOPY. THIS RN ASSESSED MOST RECENT BM, TWO PEA SIZED MUCOUS CLOTS.
--- NOTE | 2020-07-06 06:46 | NUR ---
PT HAD A GOOD NIGHT, SOMEWHAT RESTLESS REGARDING SURGERY AND PLAN OF CARE. A/O, VSS. TELE#1, SINUS LONG WHEN RESTING OTHERWISE SINUS RHYTHM. INDEPENDENT IN ROOM. IV FLUIDS INFUSING, SITE WNL. PT WAS MADE NPO AT MIDNIGHT, COMPLETED BOWEL PREP WITH MULTIPLE BM'S.
--- NOTE | 2020-07-06 07:23 | CONS ---
[facility] [address], [place] [address] Signed DATE OF CONSULTATION: 07/05/2020 CHIEF COMPLAINT: Right lower quadrant abdominal pain. 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 They were living in [place], [place]. His daughter had lived over in the [place] area, so they have been traveling back and forth. They have spent quite a bit of time here in [place] at our local hotels and so forth. They finally decided to move over to [place] a few months back to be closer to their daughter. However, in August 2019, he started to notice decrease in energy and some melena. He was found to be anemic. He had an upper endoscopy while over in [place], [place]. Earlier this year, was found to have apparently a bleeding duodenal ulcer and was H. pylori positive. He was treated and seemed to be better. He had been on iron pills and his iron levels had come back up. He stopped the iron intermittently and found that his stool was brown once again. However, over the last couple of weeks, he has been having fairly significant pain in his right lower quadrant. He decided to come to the emergency room for evaluation. He tells me today that he thinks he has had at least 3 colonoscopies in his life. He thinks they do on him every 5 to 10 years. His memory, there are no polyps. He told me that after radiation and chemotherapy for the prostate cancer, his memories have never been quite a short. In the emergency room, he seemed to be tender in the right lower quadrant and was anemic with a hemoglobin of 7.0 and a mean cell volume is 77. Alkaline phosphatase is up a little bit at 153. He underwent a CT scan of abdomen and pelvis and he has significant ileocolonic intussusception. He also has a little bit of diverticulosis in the sigmoid colon. He has 2 tiny small bilateral lung nodules and some issues with the kidneys and the ureters when he had outpatient evaluation. The prostate itself was not particularly concerning. I suspect that is true after his radiation. He has had no nausea or vomiting. I was asked to admit him overnight as a general surgeon on-call. He has been receiving IV fluids. He said he is still passing gas. In fact, when I was leaving the room, he was headed to the bathroom for a bowel movement. PAST MEDICAL HISTORY: Hypertension, gallstones, duodenal ulcer, prostate cancer status post radiation and chemotherapy, seizures, and H. pylori associated gastritis. PAST SURGICAL HISTORY: Includes a laparoscopic appendectomy. At least 2 colonoscopies every 5 to 10 years without any polyps noted. He thinks the last colonoscopy was 5 to 10 years ago. SOCIAL HISTORY: He does not smoke or drink. He is to Maria Eugenia at [phone]. They now have a Electronically Signed By: BALDEV HUTCHINSON MD 07/06/20 0723 PATIENT NAME: JAM WILKINS CONSULTATION DATE OF : 44 REPORT #: [id number] PHYSICIAN: BALDEV HUTCHINSON MD PCP: PRACHI FELTON MD REPORT IS CONFIDENTIAL AND NOT TO BE RELEASED WITHOUT AUTHORIZATION [address] [address] Signed house here in [place]. 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 Dr. Prachi Felton is his primary care provider. He continues to drive. FAMILY HISTORY: His dad had prostate cancer and his brother had prostate cancer. His other brother ended up exposed to Agent Me[place] and had stomach cancer. REVIEW OF SYSTEMS: Jam had 10 systems reviewed and the pertinent positives have been included in the above. ALLERGIES: Penicillin. MEDICATIONS: Lamictal XR 500 mg p.o. b.i.d. PHYSICAL EXAMINATION: VITAL SIGNS: His blood pressure is 122/63, his heart rate 63, his respiratory rate 16, temperature is 98.3. He is 100% on room air. He is 5 feet 9 inches tall at 66 kg. GENERAL: Jam is a 79-year-old gentleman, lying supine in his hospital bed. Our nurse Delilah is with us. He is alert, awake, and interactive. He is clear he is having some pain in his right side of his abdomen. However, he said he is tough and has been dealing with it for more than 2 weeks. LUNGS: Clear to auscultation bilaterally. HEART: Regular rate and rhythm without murmur. ABDOMEN: Flat, but he has some voluntary contraction of the muscles. I could not get him to relax enough to feel a mass. LABORATORY DATA: His white blood cell count 7.9, hemoglobin 7 with a mean cell volume of 77. BUN 19, creatinine 1.22. His INR is 1.1, alkaline phosphatase 153. His albumin is 4.1, lipase 61. His UA is negative. COVID is pending. RADIOGRAPHIC STUDIES: The CT scan of the abdomen and pelvis is reviewed and one can easily see the ileocolonic intussusception. He has a little diverticulosis in the sigmoid colon and the other issues as noted in the body of the report. ASSESSMENT AND PLAN: Jam is a 79-year-old gentleman, who presents with ileocolic intussusception I am sure at least 2 weeks. He is not completely obstructed at this point. In fact, he is still passing flatus and he was headed to the bathroom while I was leaving his room. We had a long discussion regarding his intussusception and the concern that this could be Electronically Signed By: BALDEV HUTCHINSON MD 07/06/20 0723 PATIENT NAME: JAM WILKINS CONSULTATION DATE OF : 44 REPORT #: [id number] PHYSICIAN: BALDEV HUTCHINSON MD PCP: PRACHI FELTON MD REPORT IS CONFIDENTIAL AND NOT TO BE RELEASED WITHOUT AUTHORIZATION [facility] [address] [place], [place] [address] Signed associated with a cancer. We were also concerned that his last colonoscopy was at least 5 if not 10 years ago. He told me in the emergency room he was found to be guaiac positive on digital rectal exam. I explained if we certainly could proceed with a semi-urgent right colectomy, but then we would be unaware of any lesions in the remainder of the colon. Of course, if he had a synchronous cancer, he would require a total abdominal colectomy. He is very aware of bowel preps and he wants to try that today with a colonoscopy tomorrow and then based on that, we can proceed with the appropriate surgery. He is very aware that at this point, we will not be reducing his intussusception. It is going to be resected and we will treat it as a cancer surgery. In the meantime, we will also add a CEA level. He has expressed understanding and agrees to above plan. Baldev Hutchinson MD ALB/MODL /[id number] cc: Chart Filed Incomplete MD Baldev Bolanos MD Copies: CHART FILED INCOMPLETE PRACHI FELTON DMD, ANDREW L MD ~ Electronically Signed By: BALDEV HUTCHINSON MD 07/06/20 0723 PATIENT NAME: JAM WILKINS CONSULTATION DATE OF : 44 REPORT #: [id number] PHYSICIAN: BALDEV HUTCHINSON MD PCP: PRACHI FELTON MD REPORT IS CONFIDENTIAL AND NOT TO BE RELEASED WITHOUT AUTHORIZATION
--- NOTE | 2020-07-06 07:35 | NUR ---
REPORT RECEIVED. PT IN BED, DENEIS PAIN. D5LR AT 100 INFUSING. CALL LIGHT IN REACH. DENIES NEEDS.
--- NOTE | 2020-07-06 07:38 | NUR ---
PATIENT RESTING IN BED. WHITE BOARD UPDATED. CALL LIGHT WITHIN REACH. NO OTHER NEEDS AT THIS TIME
--- NOTE | 2020-07-06 08:59 | NUR ---
PATIENT IN SURGERY. LINENS CHANGED. I&O DONE.
--- NOTE | 2020-07-06 09:39 | NUR ---
07/06/20 0939 Sorensen,Chanelle Waggoner 0929: PATIENT AWAKE. DENIES PAIN. 0931: NASAL CANNULA REMOVED.
--- NOTE | 2020-07-06 10:10 | NUR ---
PT BACK TO FLOOR FROM COLONOSCOPY. PT IS ALERT AND ORIENTED. DENIES PAIN. ASSESSMENT COMPLETED. FLUIDSSTARTED AND MEDICAITONS GIVEN. WATER PROVIDED. CALL LIGHT IN REACH
--- NOTE | 2020-07-06 11:55 | NUR ---
PT SITTING IN BED. CLEAR LUCH TRAY [id number]. DENIES PAIN OR NEEDS. STILL WITH HICHUPS. CALL LIGHT IN REACH.
--- NOTE | 2020-07-06 12:46 | NUR ---
FIRT UNIT STARTED. PT AWARE OF AND WITH NO S/SX OF REACTION. VITALS TAKEN AND STABLE.
--- NOTE | 2020-07-06 12:47 | NUR ---
PATIENT RESTING IN BED. RN IN ROOM. VITAL DONE BY RN. I&O DONE. CALL LIGHT WITHIN REACH. NO OTHER NEEDS AT THIS TIME
--- NOTE | 2020-07-06 16:36 | NUR ---
2ND UNIT COMPLETED. VITALS TAKEN AND STABLE. NO S/SX OF TRANSFUSION REACTION. FLUIDS SARTED AT 100ML/HR. PT DENEIS PAIN.
--- NOTE | 2020-07-06 17:48 | NUR ---
PATIENT RESTING IN BED. VITAL SIGNS AND I&O DONE. CALL LIGHT WITHIN REACH. NO OTHER NEEDS AT THIS TIME
--- NOTE | 2020-07-06 18:00 | NUR ---
PT OUT AMBULATING HALLS. TAMELA JOHNSON.
--- NOTE | 2020-07-06 19:03 | OR ---
[facility] [address] [place], [place] [address] Signed DATE OF OPERATION: 07/06/2020 SURGEON: Baldev Hutchinson MD PREOPERATIVE DIAGNOSES: 1. Severe anemia. 2. Ileocolonic intussusception. 3. Diverticulosis. 4. Prostate cancer. POSTOPERATIVE DIAGNOSES: 1. Ileocolonic intussusception. 2. Minimal to moderate sigmoid diverticulosis. 3. A 5 mm polyp at 60 cm. 4. A 4 mm polyp at 48 cm. PROCEDURE: Colonoscopy with hot biopsy. ESTIMATED BLOOD LOSS: None. 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 He has been living in [place], [place]. He travels to our area on his way to [place] to visit his daughter. Eventually they decided to move to [place] to be closer to their daughter. While in [place], he was having fatigue and dyspnea on exertion. He had been to his primary care provider. He had severe anemia. He underwent upper endoscopy earlier this year and was found to have a bleeding duodenal ulcer. He was also H pylori positive. He was treated appropriately and overall had improved. He took iron tablets for a while and improved his iron levels, although with anemia never quite corrected. He said when he stopped the iron pills, his stool turned brown once again. He said he has ADHD and often forgets to take his medications. In the meantime, he had moved over to [place], [place]. He established with a new primary care provider. Because of his chest pain and shortness of breath, he was sent over to the [facility] group. He had a stress test done. He did quite well with a left ventricular ejection fraction of 73%. He explained to me that his last colonoscopy was probably 5 years not 10 years ago. He thinks he has had three prior colonoscopies. However he told me after the chemotherapy for the prostate cancer, his memory is not the best. To his knowledge, there were no polyps found. In the Electronically Signed By: BALDEV HUTCHINSON MD 07/06/20 1903 PATIENT NAME: JAM WILKINS OPERATIVE REPORT DATE OF : 44 REPORT #: [id number] PHYSICIAN: BALDEV HUTCHINSON MD PCP: PRACHI FELTON MD REPORT IS CONFIDENTIAL AND NOT TO BE RELEASED WITHOUT AUTHORIZATION [facility] [address] [place] [id number] Signed meantime, he developed fairly significant right mid quadrant abdominal pain in the last couple of weeks. He finally came to emergency room late Tuesday night. On evaluation, he seemed to be tender, but no peritonitis. White count was normal and his hemoglobin was quite low at 7.0 with a mean cell volume of 77. Alkaline phosphatase was a little up at 153, but his AST and ALT were normal. He therefore had a CT scan of abdomen and pelvis performed and sure enough he has an ileocolonic intussusception. He has diverticulosis in the sigmoid colon. He has some other small issues with the lungs and the kidneys that will be done with as an outpatient. The prostate was not particularly concerning. They did ask me to admit him as a general surgeon on-call. I met within the next day and we reviewed the findings in great detail. He is partially obstructed by his intussusception. We have no idea if he has a synchronous lesion anywhere else in the colon. If he had a synchronous colon cancer, he would need a total abdominal colectomy versus a right colectomy. It had been felt strongly he could tolerate the bowel prep and wanted to proceed with an attempted colonoscopy and then proceed based after those findings. He is very aware of the intussusception in the adult and he is quite serious and may represent a cancer. In addition, we gave him 2 units of packed red blood cells yesterday and his hemoglobin did increase appropriately up to 8.9. By this morning, it is down to 7.9. We did order a CEA level and it is pending. I did confer with my Anesthesia provider today and he felt it would be sandoval to give two additional units of packed red blood cells in anticipation of right colectomy. I had explained to Jam a colonoscopy in detail. He understands there is risk including, but not limited to gas bloating, crampy abdominal pain, bleeding, perforation requiring surgery, and missed diagnosis. In addition, Jam is known to have sleep apnea and requires a CPAP mask. Consequently, we did have our anesthesia provider to help us today with increased monitoring sedation with propofol. Jam had expressed understanding and wished to proceed. DESCRIPTION OF PROCEDURE: Jam was taken into our endoscopy suite and placed in the left lateral decubitus position. He was maintained on IV sedation per our nurse philosophy specialist. A digital rectal exam was performed and this was unremarkable. Surprisingly, he still has quite a bit of prostate gland there given the fact he has had radiation therapy. After this, the adult colonoscope was introduced and advanced under direct visualization of camera. Jam is slight of build at 5 feet 9 inches, 66 kg. In consequently, his sigmoid colons is somewhat narrow at his baseline and somewhat tortuous. He also has moderate sigmoid diverticulosis. It took a few minutes to get the camera through this area with the help of some abdominal compression and additional propofol. Eventually the scope entered quite nicely into the right colon. We could easily see the intussusception. The one area is quite edematous and on the other side, there may or may not be some cancer, although it is hard to know for sure. We know this is going to be resected tomorrow, so we elected not to take any biopsies currently. The tissue was not necrotic or hemorrhagic. The scope was then slowly withdrawn. His prep was quite good considering Electronically Signed By: BALDEV HUTCHINSON MD 07/06/20 1903 PATIENT NAME: JAM WILKINS OPERATIVE REPORT DATE OF : 44 REPORT #: [id number] PHYSICIAN: BALDEV HUTCHINSON MD PCP: PRACHI FELTON MD REPORT IS CONFIDENTIAL AND NOT TO BE RELEASED WITHOUT AUTHORIZATION [facility] [address] [place], [place] [address] Signed his intussusception. The above two mentioned polyps were easily removed with the help of hot biopsy forceps. Once again, we saw the diverticulosis coming through the sigmoid colon. The rectum was unremarkable. Upon retroflexion of the scope, there was really no additional pathology above the anal canal. Specifically, no radiation proctitis. After this, the gas was suctioned out and the colonoscope removed. Jam tolerated procedure quite well. RECOMMENDATIONS: Jam will be returned to his hospital room today on clear liquids. We will plan on his right colectomy tomorrow. In addition, we are going to transfuse 2 additional units of packed red blood cells for a total of 4 units. Baldev Hutchinson MD ALB/MODL /[id number] cc: MD Prachi Garcia MD Andrew L Bower, MD Copies: PRACHI FELTON DMD, ANDREW L MD ~ Electronically Signed By: BALDEV HUTCHINSON MD 07/06/20 1903 PATIENT NAME: JAM WILKINS OPERATIVE REPORT DATE OF : 44 REPORT #: [id number] PHYSICIAN: BALDEV HUTCHINSON MD PCP: PRACHI FELTON MD REPORT IS CONFIDENTIAL AND NOT TO BE RELEASED WITHOUT AUTHORIZATION
--- NOTE | 2020-07-06 19:05 | NUR ---
SHIFT REPORT RECEIVED FROM DAYSHIFT GARCIA CARCAMO IN [facility]. PT RESTING IN BED, HOME CPAP MACHINE ON. COVID TEST STILL PENDING. DISCUSSED WITH DAYSHIFT DIAMOND WHEEL MOLDER JANICE AND NIGHTSHIFT DIAMOND WHEEL MOLDER BAILEY. AT 1924 DISCUSSED WITH PT AEROSOLIZED PROCEDURES, PT OKAY WITH REMOVING CPAP MACHINE. MACHINE OFF PT AT 1924, WILL ALLLOW 2 HOURS BEFORE REENTERING ROOM. PT VERBALIZES POC. CALL LIGHT IN REACH.
--- NOTE | 2020-07-06 19:47 | NUR ---
helped pt to sit up in his bed. closed his blinds per his request. gave him some lotion as well. bedside table and call light in reach. he needs nothing more at this time.
--- NOTE | 2020-07-06 22:48 | NUR ---
ASSESSMENT COMPLETE, SCHEDULED MEDS GIVEN (SEE EMAR). PT AWAKE AND RESTING IN BED, REPORTS TOLERABLE 2/10 PAIN AT REST. DENIES NAUSEA, BROTH, CLEAR ENSURE, AND JELLO PROVIDED PER PT REQUEST. NPO AT MIDNIGHT. IV FLUIDS INFUSING, SITEX2 WNL. NO FURTHER NEEDS, VS AND I&O'S DONE. CALL LIGHT IN REACH.
--- NOTE | 2020-07-06 22:55 | NUR ---
VITALS AND I&OS DONE AND CHARTED. FRESH ICE WATER GIVEN BY GARCIA KIM. BEDSIDE TABLE AND CALL LIGHT IN REACH. PT NEEDS NOTHING MORE AT THIS TIME.
--- NOTE | 2020-07-06 23:50 | NUR ---
PT AWAKE AND RESTING IN BED, DENIES NEEDS. CALL LIGHT IN REACH.
--- NOTE | 2020-07-07 00:10 | NUR ---
PT NPO AT THIS TIME. CALL LIGHT IN REACH.
--- NOTE | 2020-07-07 02:41 | NUR ---
VSS AND ASSESSMENT COMPLETE. IV FLUIDS INFUSING, SITE WNL. PT DENIES PAIN AND NAUSEA AT THIS TIME. APPEARS IN GOOD SPIRITS, SOMEWHAT NERVOUS FOR SURGERY. THERAPEUTIC COMMUNICATION PROVIDED. NO ADDITIONAL NEEDS, CALL LIGHT IN REACH.
--- NOTE | 2020-07-07 04:45 | NUR ---
PT AWAKE, RECENTLY VOIDED. NO NEEDS VERBALIZED. CALL LIGHT IN REACH.
--- NOTE | 2020-07-07 04:49 | NUR ---
PT HAD A GOOD NIGHT, INDEPENDENT IN ROOM. CALLS APPROPERHELEN CHOI. NPO, PLAN FOR RIGHT COLECTONY IN THE AFTERNOON. NO NAUSEA REPORTED, NO PAIN MEDICATIONS GIVEN THIS SHIFT. IV FLUIDS PER MD ORDERS, SITE WNL. VOIDING QS.
--- NOTE | 2020-07-07 06:50 | NUR ---
vs and i&o's done. iv pump cleared, fluids infusing. site wnl. no further needs. call light in reach.
--- NOTE | 2020-07-07 07:15 | NUR ---
BEDSIDE HANDOFF REPORT RECEIVED FROM LINSEED OIL TEMPERER RN. PT RESTING IN BED. PT DENIES NEEDS AT THIS TIME.
--- NOTE | 2020-07-07 07:38 | NUR ---
PATIENT AWAKE IN BED. INDEPENDENT IN ROOM. WHITE BOARD UPDATED. CALL LIGHT WITHIN REACH. NO FURTHER NEEDS AT THIS TIME.
--- NOTE | 2020-07-07 08:30 | NUR ---
PT RESTING IN BED. PT ON ROOM AIR, LUNG SOUNDS CLEAR, DENIES SOB. IV FLUIDS INFUSING D5LR AT 100ML/HR. PT NPO FOR SURGERY, DENIES NAUSEA, BOWEL TONES ACTIVE. CMS INTACT, WITHOUT EDEMA. LAMICTAL GIVEN, PT ABLE TO TAKE WITHOUT WATER ALTHOUGH A SIP WAS OFFERED. DISCUSSED PLAN OF CARE, PT REQUESTING TO WAIT TO SHOWER UNTIL HIS ARRIVES. PT DENIES OTHER NEEDS AT THIS TIME.
--- NOTE | 2020-07-07 09:00 | NUR ---
Spoke with Abdifatah for CM assessment. 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 Recently moved to [place] with his . States he is very active and is retired . Lives in a 2 story home with rails has 1-2 steps to get into his home. Uses a CPAP but no other DME. He and his both drive. Pt. denies needs for dc, feels he has everything he needs at home. Will cont. to work with pt, if needs arise.
--- NOTE | 2020-07-07 09:09 | PATH ---
[facility] [address] [facility] [place], [place] [address] Signed ORDERING PHYSICIAN: Lana Mohr MD PATIENT NAME: JAM WILKINS GENDER: Catrachito : 1940 SPECIMEN(S): MOLECULAR PATHOLOGY RESULTS: SARS-CoV-2 Not Detected ADDITIONAL NOTES.: The [employer] Fusion SARS-CoV-2 Assay is a multiplex real-time PCR (RT-PCR) in vitro diagnostic test intended for the qualitative detection of RNA from SARS-CoV-2 from individuals who meet COVID-19 clinical and/or epidemiological criteria. In general, SARS-CoV-2 RNA can be detected during the acute phase of infection. Positive results indicate the presence of SARS-CoV-2 RNA. Clinical correlation with patient history and other diagnostic information is necessary to determine patient infection status. Positive results do not rule out bacterial infection or co-infection with other viruses. Negative results do not preclude SARS-CoV-2 infection and should not be used as the sole basis for patient management decisions. Negative results must be combined with other clinical observations, patient history, and epidemiological information. The [employer] Fusion SARS-CoV-2 Assay is not yet approved or cleared by the [place] FDA. When there are no FDA-approved or cleared tests available, and other criteria are met, FDA can make tests available under an emergency access mechanism called an Emergency Use Authorization (EUA). The EUA for this test is supported by the [employer] Lead Teacher of Health and Human Service's (HHS's) declaration that circumstances exist to justify the emergency use of in vitro diagnostics for the detection and/or diagnosis of the virus that causes COVID-19. This EUA will remain in effect for the duration of the COVID-19 declaration justifying emergency of IVDs, unless it is terminated or revoked by FDA, after which the test may no longer be used. The [employer] Fusion SARS-CoV-2 Assay is for use only under EUA in US laboratories certified under the Clinical Laboratory Improvement Amendments of 1988 (CLIA) to perform high complexity tests. [employer] is certified under CLIA to perform high complexity PATIENT NAME: JAM WILKINS PATHOLOGY DATE OF : 44 REPORT #: [id number] PHYSICIAN: MAIKEL COOPER PCP: PRACHI FELTON MD REPORT IS CONFIDENTIAL AND NOT TO BE RELEASED WITHOUT AUTHORIZATION [address] [address] Signed clinical laboratory testing. PERFORMING LABORATORY.: Molecular testing was performed by [employer] [address] [place], [place] [address], [place] [address] ([employer] Demonstrator: Jonathan Crowell D.O.; CLIA#: [id number]) Diagnostician: System Interface Pathologist Electronically Signed 07/07/2020 Copies: ~ PATIENT NAME: JAM WILKINS PATHOLOGY DATE OF : 44 REPORT #: [id number] PHYSICIAN: MAIKEL PATHOLOGY PCP: PRACHI FELTON MD REPORT IS CONFIDENTIAL AND NOT TO BE RELEASED WITHOUT AUTHORIZATION
--- NOTE | 2020-07-07 10:56 | NUR ---
PT WITHOUT ORDER FRO ABX SURGICAL FORCEPS FABRICATOR TO OR, CALLED DR. HUTCHINSON'S OFFICE AND LEFT MESSAGE WITH CACHORRO.
--- NOTE | 2020-07-07 11:50 | NUR ---
PT SALINE LOCKED FOR HEBICLEANSE SHOWER.
--- NOTE | 2020-07-07 18:06 | NUR ---
07/07/20 1806 Sowmya Wallace 1635 PT ARRIVED IN PACU NON RESPONSIVE TO NOXIOUS STIMULI WITH OPA IN PLACE. 1645 PT REACTIVE. OPA REMOVED. 1653 PT MOANING AND MOVING AROUND IN BED C/O ABD PAIN. FENTANYL 50MCG GIVEN IVP. 1659 NO CHANGE IN PAIN LEVEL. ANESTHESIA AT BEDSIDE. C/O ABD PAIN 8/10. FENTANYL 50MCG GIVEN IVP. 1705 NO CHANGE IN PAIN LEVEL. MOANING AND MOVING ALL OVER IN BED. 2 NURSES AT BEDSIDE REORIENTING PT. VERSED 1MG GIVEN IVP. 1710 PT APNEIC AND OXYGEN DROPPED TO 85% WITH STIMULATION. O2 AT 4L VIA NC PLACED. 1715 PT APNEIC AND STIMULATED BY RN. PT AWAKENS C/O ABD PAIN AND FALLS BACK TO SLEEP. 1720 ICE TO ABD. 1740 PT AWAKENS C/O ABD PAIN 6/10, THEN FALLS BACK TO SLEEP. TO ROOM 109. BED PLUGGED IN AND CALL LITE GIVEN. AT BEDSIDE. REPORT GIVEN TO RN.
--- NOTE | 2020-07-07 18:19 | NUR ---
PT RECEIVED FROM PACU. PT ON 4L NC, O2 SATS 96%, LUNG SOUNDS CLEAR. PT RATING PAIN HIGH, GIVEN 0.3MG IV DILAUDID. PT WITH REPETATIVE STATEMENTS AND QUESTIONS, ANSWERING ORIENTATION QUESTIONS APPROPRIATELY. PT DENIES NAUSEA, BOWEL TONES HYPOACTIVE. CMS INTACT, WITHOUT EDEMA, SCDS IN PLACE. D5LR INFUSING AT 100ML/HR. RN REMIANED WITH PT TO MONITOR RR AND REORIENT NEEDED.
--- NOTE | 2020-07-07 19:54 | NUR ---
REPORT RECEIVED FROM DAY SHIFT RN. PT LYING IN BED RESTING WITH EYES CLOSED. DROWSY BUT RESPONDS TO VERBAL STIMULI. IVF INFUSING. ICE TO ABD. PRN ADMINISTERED FOR C/O ABD PAIN. CPOX IN PLACE. SpO2 95% ON 4L/NC, HR 50'S. SCD'S IN PLACE. CALL LIGHT IN REACH. WHITE BOARD UPDATED.
--- NOTE | 2020-07-07 21:00 | NUR ---
EVENING ASSESSMENT COMPLETE. PT REFUSED SHEDULED MEDS, EVEN AFTER ENCOURAGEMENT. MIDLINE ABD INCISION INTACT. SMALL AMOUNT OF OLD DRAINAGE ON DRESSING. BOWEL TONES HYPOACTIVE. PT REPOSITIONED IN BED FOR COMFORT. TARIQ PATENT DRAINING CL YELLOW URINE. SCD'S IN PLACE. PT DENIES FURTHER NEEDS AT THIS TIME. CALL LIGHT IN REACH.
--- NOTE | 2020-07-07 22:00 | NUR ---
SPOKE WITH DR. CARRINGTON ABOUT ELEVATED BP. PRN ADMINISTERED FOR PAIN.
--- NOTE | 2020-07-08 00:31 | NUR ---
PRN ADMINISTERED FOR ABD PAIN. PT REPOSITIONED IN BED WITH 2PA. IVF INFUSING. ICE CHIPS AND WATER PROVIDED. PT DENIES NAUSEA. SpO2 96% ON 4L/NC. HR 50'S-60'S. NO FURTHER NEEDS. CALL LIGHT IN REACH.
--- NOTE | 2020-07-08 02:29 | NUR ---
VS AND I&O COMPLETE. PRN ADMINISTERED FOR ABD PAIN. TARIQ PATENT DRAINING CL YELLOW URINE. ASSISTED PT TO REPOSITION IN BED. MIDLINE ABD INCISION UNCHANGED. ICE PACK TO INCISION.
--- NOTE | 2020-07-08 04:13 | NUR ---
PT C/O ABD PAIN. PRN ADMINISTERED PER EMAR. PT WITH CPAP ON. SpO2 96%, RR EVEN AND UNLABORED. ASSESSMENT COMPLETE. BOWEL TONES ACTIVE. PT DENIES PASSING GAS.
--- NOTE | 2020-07-08 05:46 | OR ---
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 PROCEDURE: Right colectomy with stapled [id number] ileocolic anastomosis. ESTIMATED BLOOD LOSS: Minimal. 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 We found no evidence of any metastatic disease in the mesentery, peritoneum, or the liver. He did have a few prominent lymph nodes in the mesentery. His preoperative CEA level was 1.54 ng/mL. INDICATIONS: Jam is a 79-year-old gentleman, who had been living in [place], [place]. Last fall, he noticed increasing shortness of breath and dyspnea on exertion. He had been to his primary care provider. He was found to be significantly anemic. He underwent his upper endoscopy and was found to have an ulcer earlier this year. He was also H pylori positive. He took his antibiotics and overall is feeling much better. He had been on iron tablets. When he stopped iron tablets, he said his stool went from black back to brown. In the meantime, he moved from [place], [place] to [place], [place] to be closer to his daughter, who lives in [place], [place]. In the meantime, he established with a new primary care provider here in [place], [place]. Consequently, he never scheduled his colonoscopy over in [place], [place]. In the meantime, he did go see a rubble placer for a stress test. He actually did quite well and he had a left ventricular ejection fraction of 73%. However, over the last two weeks or so, he has been having fairly significant crampy abdominal pain in the right side of his abdomen. He finally came to the emergency room for evaluation. He seemed to have tenderness in that side and was significantly anemic with a white count was normal. Alkaline phosphatase was up at 153 but the other liver function tests were all negative. He had undergone a CT scan of abdomen and pelvis in the emergency room. He clearly had Electronically Signed By: BALDEV HUTCHINSON MD 07/08/20 0546 PATIENT NAME: JAM WILKINS OPERATIVE REPORT DATE OF : 44 REPORT #: [id number] PHYSICIAN: BALDEV HUTCHINSON MD PCP: PRACHI FELTON MD REPORT IS CONFIDENTIAL AND NOT TO BE RELEASED WITHOUT AUTHORIZATION [facility] [address], [place] [address] Signed ileocolonic intussusception. He has old diverticulosis as well. He has a few small nodules in the lung and then he has some various issues with the kidneys and ureters. He also told me he had prostate cancer and has been through radiation chemotherapy. He said after that his memories never been the best. He was only partially obstructed with his intussusception. Consequently, we decided to put him through a gentle all day bowel prep with plans to do a colonoscopy. He understood if he could not tolerate that he then end up with a standard right colectomy. However, we wanted to see if there were any synchronous lesions in the remainder of his colon. I explained to Jam that in the adult patient pretty good his age, a concern for cancer will be very high with his intussusception. He actually did very well with his bowel prep. On the following day, we can see that he does indeed have some diverticulosis and we took out two small polyps in the left colon. We could see this area of intussusception with edema in the right colon, and then on the side in a somewhat semilunar fashion, we could see what we thought was probably going to be a tumor. We did not bother of biopsy at that time because we knew he is having surgery the following day. We did not want to take there is any bleeding and/or perforation. In the meantime, he was quite anemic and he ended up with units of packed red blood cells. He responded nicely to that transfusion. When I came in earlier this morning, he looked and felt much better overall. He passed a significant amount of gas on the colonoscopy and his abdomen is quite flat and soft. Even then I could not specifically palpate a mass in the right lower quadrant. I had reviewed with Jam several times the idea of a right colectomy. He understands the nature of that surgery along with its risks including, but not limited to bleeding, infection, scarring, change in contour of the skin, damage to bowel, anastomotic leak, incisional hernias and other unforeseen comorbidities. He had expressed understanding and wished to proceed. DESCRIPTION OF PROCEDURE: I had met with Jam in the preop area. After answering his questions, he was taken to the operating room and placed in a supine position under general endotracheal tube anesthesia. He was given preoperative antibiotics and has been on Lovenox subcutaneously. SCDs were utilized. A Grady catheter was inserted without difficulty with return of clear yellow urine. He was then prepped and draped in the usual sterile fashion. Even after pharmacologic paralysis, we still cannot palpate a mass in his right lower quadrant. We utilized a standard periumbilical incision and carried this into the abdomen with the help of the cautery. On inspection, we found he had a moderately mobile cecum, although he had some old scar tissue from his previous laparoscopic appendectomy. We could easily feel the tumor in the cecum. At that point, he really had no intussusception that we could directly visualize. We saw no peritoneal studding and no palpable or visible lesions with the liver itself. We then proceeded with a standard right colectomy. We took down the white line of Toldt with our cautery, all the way around hepatic flexure and of the proximal transverse colon. The proximal transverse colon was divided with the RESHMA stapler. We also had freed up the cecum and Electronically Signed By: BALDVE HUTCHINSON MD 07/08/20 0546 PATIENT NAME: JAM WILKINS OPERATIVE REPORT DATE OF : 44 REPORT #: [id number] PHYSICIAN: BALDEV HUTCHINSON MD PCP: PRACHI FELTON MD REPORT IS CONFIDENTIAL AND NOT TO BE RELEASED WITHOUT AUTHORIZATION [facility] [address], [place] [address] Signed terminal ileum. Because the location of the tumor, we measured out 20 cm on the terminal ileum and we divided the terminal ileum with our linear RESHMA stapler. The mesentery and then to the terminal ileum in that right colon was taken down between Pean clamps and #0 Vicryl ties at the base. We saw a couple of small lymph nodes as we worked up near the distal right colon. The entire specimen was then passed off the field. Our circulating nurse opened it on the back table and sure enough we can easily see the tumor of the cecum. We then brought the terminal ileum up to the proximal and transverse colon in a [id number] fashion. A standard stapled anastomosis was performed with the 75 mm RESHMA stapler. We held the bowel together with interrupted silk sutures. We then closed the colotomy and enterotomy in 2 layers with a running Vicryl suture, then interrupted silk Lembert sutures. We then used silk Lembert sutures on the anterior staple line to add strength and invert that staple line. We had inspected the internal portion of the staple line and found to be quite satisfactory and with good hemostasis. We then closed the mesenteric rent with a running 2-0 Vicryl suture without difficulty. The bowel was then returned to the abdomen. The right upper quadrant and right gutter were irrigated and suctioned out until clear. The omentum was brought back down over the abdomen. We closed the midline abdominal wall with interrupted [id number]-[id number] #1 PDS sutures. Local anesthetic was injected into his abdominal wall and subcutaneous tissues. The wound was irrigated and suctioned out until clear. We brought the dermis back together with interrupted 3-0 Monocryl sutures. The skin edges reapproximated with isidra. After this, our anesthesia provider provided bilateral TAP blocks. Dry gauze and tape were applied. Jam was awakened from his anesthesia, extubated in the OR, and taken to the recovery room in stable condition. Baldev Hutchinson MD ALB/MODL /[id number] cc: MD Baldev Bolanos MD Copies: PRACHI FELTON DMD Electronically Signed By: BALDEV HUTCHINSON MD 07/08/20 0546 PATIENT NAME: JAM WILKINS OPERATIVE REPORT DATE OF : 44 REPORT #: [id number] PHYSICIAN: BALDEV HUTCHINSON MD PCP: PRACHI FELTON MD REPORT IS CONFIDENTIAL AND NOT TO BE RELEASED WITHOUT AUTHORIZATION [address] [place], [place] [address] Signed BALDEV HUTCHINSON MD ~ Electronically Signed By: BALDEV HUTCHINSON MD 07/08/20 0546 PATIENT NAME: JAM WILKINS OPERATIVE REPORT DATE OF : 44 REPORT #: [id number] PHYSICIAN: BALDEV HUTCHINSON MD PCP: PRACHI FELTON MD REPORT IS CONFIDENTIAL AND NOT TO BE RELEASED WITHOUT AUTHORIZATION
--- NOTE | 2020-07-08 06:30 | NUR ---
PRN ADMINISTERED FOR ABD PAIN. PT REPOSITIONED IN BED. DR. HUTCHINSON REMOVED ABD DRESSING. MIDLINE INCISION WELL APPROXIMATED. STAPES INTACT. BOWEL TONES ACTIVE. PT DENIES NAUSEA BUT HAD AN EPISODE OF "REGURGITATION" WHERE HE REPORTS HE "BURPED UP WATER". HOB ELEVATED. ICE CHIPS AND WATER PROVIDED. SCD'S IN PLACE. CALL LIGHT IN REACH.
--- NOTE | 2020-07-08 06:41 | NUR ---
DISCONTINUED TARIQ CATH.
--- NOTE | 2020-07-08 06:56 | NUR ---
SPOKE WITH DR. CARRINGTON REGARDING ELEVATED BLOOD PRESSURE. NEW TELEPHONE ORDERS RECEIVED. VERIFIED WITH READ BACK METHOD.
--- NOTE | 2020-07-08 07:17 | NUR ---
REPORT RECEIVED. PT LYING IN BED ON PHONE. PULSE OX SHOWER OXYGEN OF 89% ON RA. ENCOURAGED PT TO DEEP BREATH. INCENTIVE SPEROMETER PROVIDED. O2 CAME UP TO 94% PAIN REPORTED 4/10. CALL LIGHT IN REACH.
--- NOTE | 2020-07-08 07:52 | NUR ---
PATIENT AWAKE IN BED. WARM WASH CLOTH GIVEN. WHITE BOARD UPDATED. CALL LIGHT WITHIN REACH. NO FURTHER NEEDS AT THIS TIME.
--- NOTE | 2020-07-08 09:00 | NUR ---
Pt. resting in bed. States he tired, but his was in and he is ok. Denies needs.
--- NOTE | 2020-07-08 09:33 | NUR ---
PT DRANK 505% OF CLRAR BREAKFAST. REPORTING PAIN 07/07. MOTRIN ADMISNTERED. ASSESSMENT COMPLETED. MIDLINE WELL APPROCIMATED. BOWEL TONES ACTIVE. LUNGS DIM IN BASES. CPOX IN PLACE. HEART SOUNDS REGULAR. NO GAS OR BM. PT IS BELCHING.
--- NOTE | 2020-07-08 10:01 | NUR ---
PATIENT WAS IN CHAIR FOR A SHORT PERIOD. BACK TO BED. CALL LIGHT WITHIN REACH. NO FURTHER NEEDS AT THIS TIME.
--- NOTE | 2020-07-08 10:03 | NUR ---
AMBULATED PT OUT IN SORTO. WALKED TO END OF SORTO AND BACK. NOW IN BED. CPOX IN PLACE. FLUIDS INFUSING WNL.
--- NOTE | 2020-07-08 10:30 | NUR ---
PT STILL WITH NO URGE TO VOID. WILL TRY TO VOID BY 1230 AND BLADDER SCAN IF NO URIN IS PRODUCED.
--- NOTE | 2020-07-08 10:50 | NUR ---
PT REPORTING 9/10 PAIN. ORAL TYLENOL AND 1MG IV DILAUDID ADMINSTERED. PT NOW IN BED, OYGEN 92% ON RA.
--- NOTE | 2020-07-08 11:43 | NUR ---
PATIENT AMBULATED TO RESTROOM. WAS ABLE TO URINATE 160 AT 1140. CHARTED.
--- NOTE | 2020-07-08 11:50 | NUR ---
PT UP TO BATHROOM, VOIDED 160ML.
--- NOTE | 2020-07-08 13:58 | NUR ---
PATIENT RESTING IN BED. WORKING ON A LATE LUNCH. CALL LIGHT WITHIN REACH. NO FURTHER NEEDS AT THIS TIME.
--- NOTE | 2020-07-08 14:21 | NUR ---
PT WITHOUT VOID SINCE 1000. BLADDER SCANNED FOR 300MLS. ASSSISTED TO BATHROOM, VOIDED 125. UP TO CHAIR WITH CLEAR TRAY. PAIN 03/07.
--- NOTE | 2020-07-08 14:56 | PATH ---
[facility] [address] [place], [place] [address] Signed SPECIMEN(S): A COLON POLYP AT 60 CM SPECIMEN(S): B COLON POLYP AT 48 CM SPECIMEN SOURCE: A. COLON POLYP AT 60 CM B. COLON POLYP AT 48 CM CLINICAL HISTORY: Anemia and ileocolonic intussusception. Postop: Diverticulosis, colon polyps, right-sided ileocolonic intussusception. MICROSCOPIC DESCRIPTION: Histologic sections of all submitted blocks are examined by light microscopy. These findings, together with the gross examination, support the pathologic diagnosis. FINAL PATHOLOGIC DIAGNOSIS: A. Colon, polyp at 60 cm, polypectomy: - Tubular adenoma. - Negative for high-grade dysplasia or malignancy. B. Colon, polyp at 48 cm, polypectomy: - Colonic mucosa with no histopathologic abnormality. - Negative for dysplasia or malignancy. NAL:cml:C2NR GROSS DESCRIPTION: Two specimens are received in two containers, labeled "EO." A. The specimen, labeled "EO, colon polyp at 60 cm," is received in formalin and consists of one martines soft tissue fragment that measures 0.2 cm in greatest dimension. The specimen is entirely submitted in cassette (A1). B. The specimen, labeled "EO, colon polyp at 48 cm," is received in formalin and consists of one martines soft tissue fragment that measures 0.2 cm in greatest dimension. The specimen is entirely submitted in cassette (B1). JS (under the direct supervision of a pathologist) The Gross Description was prepared using a voice recognition system. The report was reviewed for accuracy; however, sound-alike word errors, addition and/or deletions may occur. If there is any question about this report, please contact Client Services. PERFORMING LABORATORY: PATIENT NAME: JAM WILKINS PATHOLOGY DATE OF : 44 REPORT #: [id number] PHYSICIAN: MAIKEL PATHOLOGY PCP: PRACHI FELTON MD REPORT IS CONFIDENTIAL AND NOT TO BE RELEASED WITHOUT AUTHORIZATION [facility] [address] [place] [address] Signed The technical component was performed [place] [address] (Light Bulb Assembler: Marci Acevedo MD; CLIA# [id number]). Professional interpretation was performed by [facility], [address] [address] (CLIA# [id number]). Diagnostician: Dinorah Ga MD Pathologist Electronically Signed 07/08/2020 Copies: ~ PATIENT NAME: JAM WILKINS PATHOLOGY DATE OF : 44 REPORT #: [id number] PHYSICIAN: MAIKEL PATHOLOGY PCP: PRACHI FELTON MD REPORT IS CONFIDENTIAL AND NOT TO BE RELEASED WITHOUT AUTHORIZATION
--- NOTE | 2020-07-08 16:47 | NUR ---
PT AMBULATED OUT IN HALLS INDEPENDENTLY. TOELRATED WELL. 03/07 PAIN. NORCO ADMISNTERED, VOIDED 125ML . BACK TO BED NOW. CALL LIGHT IN REACH.
--- NOTE | 2020-07-08 18:40 | NUR ---
PATIENT RESTING IN BED. CALL LIGHT WITHIN REACH. NO FURTHER NEEDS AT THIS TIME.
--- NOTE | 2020-07-08 19:23 | NUR ---
REPORT RECEIVED FROM DAY SHIFT RN. PT LYING IN BED ALERT AND ORIENTED. DENIES NEEDS AT THIS TIME. WHITE BOARD UPDATED. CALL LIGHT IN REACH.
--- NOTE | 2020-07-08 21:00 | NUR ---
EVENING ASSESSMENT COMPLETE. SCHEDULED MEDS ADMINISTERED PER EMAR. BP MED HELD DUE TO HR PALPATED AT 50. PT DENIES PRN FOR PAIN. DENIES NAUSEA BUT FEELS "BLOATED". BOWEL TONES ACTIVE. ABD SOFT. MIDLINE INCISION WELL APPROXIMATED WITH JACQUIE. NO REDNESS OR DRAINAGE NOTED. SCD'S IN PLACE. IVF INFUSING.
--- NOTE | 2020-07-08 23:03 | NUR ---
PRN ADMINISTERED FOR ABD PAIN. JELLO PROVIDED. IV IN LEFT FOREARM INFILTRATED. DC'D. TIP INTACT. NEW 20G IV WITH 1 ATTEMPT IN RIGHT FOREARM. PT ZAHRA WELL.
--- NOTE | 2020-07-09 00:14 | NUR ---
CALL LIGHT ANSWERED. PT UP TO BR WITH 1PA TO VOID. GAIT STEADY. BACK TO BED, ZAHRA WELL. SCD'S IN PLACE. PT DENIES PAIN OR NAUSEA.
--- NOTE | 2020-07-09 02:04 | NUR ---
PT C/O A "VIBRATION" IN HIS BED KEEPING HIM AWAKE. PT BED SWAPPED OUT WITH A NEW ONE. PT STILL FEELS A VIBRATION. SCD MACHING TURNED OFF AND REMOVED FROM FOOT OF BED. AGAIN, PT STILL FEELS VIBRATION. PT REMAKS "IT MUST BE ME AND MY NERVES". SCD'S REMOVED PER PT REQUEST. PT DENIES PAIN OR NAUSEA. NO FURTHER NEEDS AT THIS TIME. CALL LIGHT IN REACH.
--- NOTE | 2020-07-09 03:00 | NUR ---
PT RESTING IN BED WITH EYES CLOSED, NAD. CPAP IN PLACE.
--- NOTE | 2020-07-09 06:10 | NUR ---
PT UP TO BR WITH SBA TO VOID. BACK TO BED, ZAHRA FAIR. PT WITH 6/10 ABD PAIN. BP NOTED TO BE ELEVATED. PRN ADMINISTERED FOR PAIN. WILL REASSESS BP AFTER PT SETTLES. PT DENIES CP, SOB, OR LIGHTHEADEDNESS. NO NAUSEA. REPORTS ABD FEELS "MORE BLOATED" THIS MORNING. PT DENIES PASSING GAS. BOWEL TONES ACTIVE. ABD SOFT. FRESH WATER AND JELLO PROVIDED.
--- NOTE | 2020-07-09 06:45 | NUR ---
PT TO SIDE OF BED TO VOID. BACK TO BED, ZAHRA FAIR. PT CONTINUES TO RATE ABD PAIN 7/10. ADDITIONAL PRN ADMINISTERED FOR PAIN.
--- NOTE | 2020-07-09 09:30 | NUR ---
Spoke with patient and . He c/o of abd distention, but is up in chair. Plans on walking today. Plans on ambulation today.
--- NOTE | 2020-07-09 10:26 | NUR ---
ENCOURAGE PT TO GET UP OOB, PT IS NOW SITTING UP IN RECLINER, DENIES NAUSEA, REPORTS PAIN IS STILL 6/10 AFTER NORCO. DENIES NAUSEA.
--- NOTE | 2020-07-09 11:01 | NUR ---
PATIENT AMBULATED IN HALLWAY WITH , FWW. PATIENT NOW BACK TO BED. PATIENT DID AM CARE AT SINK, SHOWER MAYBE LATER. CALL LIGHT IN REACH. NO FURHTER NEEDS AT THIS TIME. LINENS CHANGED.
--- NOTE | 2020-07-09 11:02 | NUR ---
WALKER PROVIDED, PT AMBULATED LOOP AROUND NURSES STATION X2, TOLERATED WELL, RESTING ON BED NOW. CALL LIGHT IN EASY REACH.
--- NOTE | 2020-07-09 14:31 | NUR ---
NIPHEDIPINE GIVEN ORDERED, PT SITTING UP IN RECLINER WATCHING THE NEWS, TAKING PO FLUIDS WELL, DENIES NAUSEA, ABD CONT. TO BE DISTENED BUT STATES IS BETTER AFTER WALKING.
--- NOTE | 2020-07-09 16:40 | NUR ---
BP IMPROVED, WALKED HALLS AGAIN USING WALKER, DENIES FLATUS YET, HYPOACTIVE BS. NO NAUSEA. CONT. CLEAR LIQUIDS.
--- NOTE | 2020-07-09 17:48 | NUR ---
PATIENT UP IN CHAIR. CALL LIGHT IN REACH. NO FURTHER NEEDS AT THIS TIME.
--- NOTE | 2020-07-09 18:45 | NUR ---
ATE 90% OF DINNER, UP IN ROOM WITH SUPERVISION TO VOID IN BATHROOM, SOMETIMES I CAN GET HIM TO USE URINAL, FOLLOWS INSTRUCTION IF HE CHOOSES, KEEPING LEGS ELEVATED IN RECLINER, IN TO VISIT, ASKING FOR SOMETHING STRONGER FOR HIS NERVES, STATES [employer] DON'T LISTEN TO HER. TYLENOL GIVEN FOR COMFORT, AND NICOTINE LOZENGE GIVEN BUT PT STATES HE WOULD RATHER HAVE A SMOKE. PT TAKING FLUIDS WELL, CALL LIGHT ENCOURAGED AND IN EASY REACH.
--- NOTE | 2020-07-09 18:50 | NUR ---
PT RESTING ON BED, DENIES ANY NEEDS, IN GOOD SPIRITS, DENIES PASSING FLATUS YET. DISTILLED WATER BROUGHT BY RT FOR CPAP.
--- NOTE | 2020-07-09 19:00 | NUR ---
SHIFT REPORT RECEIVED FROM ANUPALJULIANA KENDALL AT BEDSIDE. PT AWAKE AND RESTING IN BED. IV FLUIDS INFUSING PER MD ORDERS, SITE WNL. NO NEEDS AT THIS TIME. CALL LIGHT IN REACH.
--- NOTE | 2020-07-09 19:46 | NUR ---
PT VOIDING LARGE VOLUMES AND TOLERATING CLEAR LIQUID DIET. SPOKE TO DR HUTCHINSON TO DC FLUIDS. TELEPHONE ORDER READ BACK DECREASE D5LR FROM 100MLS/HR TO 50MLS/HR. TO SEE PT IN AM. ORDER UPDATED AND PUMP RATE CHANGED AT THIS TIME.
--- NOTE | 2020-07-09 21:35 | NUR ---
VITALS AND I&OS DONE AND CHARTED. STOOD BY HE WENT TO THE BATHROOM AND BACK TO BED. I EMPTIED HIS URINAL. BEDSIDE TABLE AND CALL LIGHT IN REACH. PT NEEDS NOTHING MORE AT THIS TIME.
--- NOTE | 2020-07-09 21:40 | NUR ---
ASSESSMENT COMPLETE, SCHEDULED MEDS GIVEN (SEE EMAR). VSS, PT A/OX4. PRN NORCO GIVEN FOR 7/10 PAIN. ABD INCISION SIMIN, JACQUIE INTACT AND WELL APPROXIMATED. SOME DISTENTION NOTED, PT STILL NOT PASSING GAS. NO NAUSEA REPORTS. IV SITE WNL, FLUIDS INFUSING AT 50MLS/HR. CALL LIGHT IN REACH.
--- NOTE | 2020-07-09 23:04 | NUR ---
ROUNDED ON PT. PT UP AND VOIDING, DENIES NEEDS.
--- NOTE | 2020-07-10 00:47 | NUR ---
URINAL EMPTIED PER PT REQUEST. IV FLUIDS REMAIN INFUSING, SITE WNL. BRISK BLOOD RETURN NOTED. NO ADDITIONAL NEEDS, CALL LIGHT IN REACH.
--- NOTE | 2020-07-10 03:15 | NUR ---
PT RESTING QUIETLY IN BED, EYES CLOSED. HOME CPAP MACHINE OFF, RESPIRATIONS UNLABORED. NO DISTRESS NOTED, CALL LIGHT IN REACH.
--- NOTE | 2020-07-10 03:52 | NUR ---
ASSESSMENT COMPLETE, NO NEW CHANGES OR CONCERNS. PT AWAKE AND RESTING IN BED. RR EVEN AND UNLABORED, NO DISTRESS NOTED. DENIES PAIN AND NAUSEA, DENIES PASSING GAS. INCISION WINDOWS DESKTOP ENGINEER, JACQUIE INTACT AND EDGES WELL APPROXIMATED. IV FLUIDS INFUSING AT 50MLS/HR, SITE WNL. CALL LIGHT IN REACH.
--- NOTE | 2020-07-10 06:09 | NUR ---
VS AND I&O'S COMPLETE. IV FLUIDS INFUSING AT 50MLS/HR, SITE WNL. PT IN BED, DENIES ADDITIONAL NEEDS. CALL LIGHT IN REACH.
--- NOTE | 2020-07-10 07:44 | NUR ---
PT AWAKE EARLY THIS AM, C/O FEELING BLOATED, HYPOACTIVE BT'S, ENC TO GET UP TO RECLINER FOR BREAKFAST, NORCO GIVEN, DENIES NAUSEA, IN GOOD SPIRITS. VOIDING WELL, TAKING PO FLUIDS WELL.
--- NOTE | 2020-07-10 08:17 | NUR ---
Spoke with Ed. He is walking in the boo. Denies passing gas yet. Feels he is doing well.
--- NOTE | 2020-07-10 13:12 | NUR ---
ATE 100% OF CLEAR LIQUID TRAY, CONT. TO DENY ANY NAUSEA. HAS BEEN WALKING IN HALLWAYS, VISITING AND IN GOOD SPIRITS, ABD IS FIRM AND DISTENDED WITH OCCASIONAL BT'S.
--- NOTE | 2020-07-10 16:50 | NUR ---
PT IN GOOD SPIRITS, IN TO VISIT, WALKING LAPS ON AND OFF ALL AFTERNOON, CONT. TO DENY ANY NAUSEA, NO FLATUS, TOLERATING PO FLUIDS WELL, GOOD URINE OUTPUT, PAIN WELL CONTROLLED WITH NORCO. SET UP TO TAKE A SHOWER THIS EVENING. DENIES ANY NEEDS.
--- NOTE | 2020-07-10 19:13 | NUR ---
SET PATIENT UP FOR A SHOWER. HE SAID HE WOULD LIKE TO TAKE A SHOWER BEFORE HE GOES TO BED TONIGHT.
--- NOTE | 2020-07-10 19:43 | NUR ---
RECEIVED RN REPORT, PATIENT RESTING QUIETLY SUPINE, RESPIRATIONS REGULAR AND EVEN, EYES CLOSED, CALL LIGHT IN REACH.
--- NOTE | 2020-07-10 19:57 | NUR ---
charge nurse note: Pt in recliner chair, L leg redness and blisters on lateral outer side, w/o changes, no c/o pain, on room air
--- NOTE | 2020-07-10 19:59 | NUR ---
CHARGE NURSE ROUNDING NOTE: pT RESTING, EYES CLOSED, NO C/O PAIN, USING CALL LIHGT AT HANDS REACH
--- NOTE | 2020-07-10 22:01 | NUR ---
VITALS AND I&OS DONE AND CHARTED. WRAPPED HIS IV SITE SO HE CAN TAKE A SHOWER. FRESH ICE WATER GIVEN. BEDSIDE TABLE AND CALL LIGHT IN REACH.
--- NOTE | 2020-07-10 22:43 | NUR ---
PATIENT UP TO THE SHOWER NOW, DID GET 2 NORCO FOR 5/10 ABD SURGICAL SITE PAIN. BOWEL TONES HYPOACTIVE. CALL LIGHT IN REACH.
--- NOTE | 2020-07-11 01:22 | NUR ---
PATIENT RESTING QUIETLY ON CPAP, EYES CLOSED RESPIRATIONS REGULAR AND EVEN, CALL LIGHT IN REACH.
--- NOTE | 2020-07-11 03:22 | NUR ---
PATIENT RESTING QUIETLY, SUPINE, CPAP ON, REGULAR EVEN RESPIRATIONS, SCD'S, AND CALL LIGHT IN REACH.
--- NOTE | 2020-07-11 03:39 | NUR ---
PT CALLS TO HAVE BRIEFS CHANGED. PT USED URINAL WITH 10 ML URINE OUT. BRIEFS CHANGED. NO OTHER NEEDS AT THIS TIME. CALL LIGHT IN REACH. BED ALARM ON.
--- NOTE | 2020-07-11 05:15 | NUR ---
PATIENT HAD A SHOWER AT THE BEGINING OF THE SHIFT, TOOK 2 NORCO AT EVENING MED PASS FOR 5/10 ABD PAIN. SURGICAL ABD SITE, OPEN TO AIR AND JACQUIE INTACT, SITE LOOKS GOOD. PATIENT IS PRETTY MUCH INDEPENDENT IN ROOM AND HAS SLEPT ALL NIGHT ON HIS CPAP, AND CONTINUES TO SLEEP AT THIS TIME. CALL LIGHT IN REACH.
--- NOTE | 2020-07-11 06:55 | NUR ---
BEDSIDE HANDOFF REPORT RECEIVED FROM BUILDER OPERATOR RN. PT RESTING IN BED. PT REQUESTING CLEAR ENSURE, ORDERED FROM KITCHEN. PT DENIES OTHER NEEDS AT THIS TIME.
--- NOTE | 2020-07-11 07:06 | NUR ---
PT CALLED FROM RESTROOM, SHE WAS SITTING ON THE TIOLET AND SAID SHE HAS NAUSEA. ASKED PT IF SHE WANTED TO SIT THERE WHILE THIS RN GOT ZOFRAN SHE SAID YES AND ASKED FOR EMESIS BAG. AFTER WALKING OUT OF MEDICATION ROOM THERE WAS ALOT OF STAFF IN PT'S ROOM AND SHE WAS ON BATHROOM FLOOR. SHE STATES SHE FELT DIZZY AND WAS GOING TO FALL BUT SHE CAUGHT HERSELF BECAUSE SHE DIDN'T WANT TO LAND ON HER BREAST. PT CRAWLED OVER TO DOORWAY WITH ASSISTANCE AND GOT IN RECLINER. VS TAKEN AT THIS TIME AND ADMINISTERING ZOFRAN IV.
--- NOTE | 2020-07-11 08:42 | NUR ---
PT RESTING IN BED. VSS. PT RATING PAIN 4/10, REQUESTING PAIN MEDICATION TO BE ABLE TO WALK IN SORTO THIS MORNING, 2 TABS GIVEN. PT ON ROOM AIR, LUNG SOUNDS CLEAR. PT DENIES NAUSEA, BOWEL TONES ACTIVE, STILL WITHOUT FLATUS, ENCOURAGED AMBULATION. CMS INTACT, WITHOUT EDEMA. D5LR AT 50ML/HR. PT AMBULATED TO BATHROOM, VOIDED, NOW SITTING ON EDGE OF BED FOR BREAKFAST. PT DENIES OTHER NEEDS AT THIS TIME.
--- NOTE | 2020-07-11 09:02 | PATH ---
[facility] [address] [place], [place] [address] Signed THIS IS AN ADDENDUM REPORT SPECIMEN(S): A ILEOCOLONIC RESECTION, CECAL TUMOR SPECIMEN SOURCE: A. ILEOCOLONIC RESECTION, CECAL TUMOR CLINICAL HISTORY: Right colon cecal tumor/intussusception. 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 - Tumor size: 5.3 x 5.3 x 0.8 cm. - Macroscopic tumor perforation: Not identified. - Histologic type: Adenocarcinoma with mucinous features. - Histologic grade: Moderately differentiated. - Tumor extension: Tumor invades through muscularis propria into pericolorectal tissue. - Margins: - All margins are uninvolved by invasive carcinoma, high-grade dysplasia/intramucosal carcinoma, and low-grade dysplasia (proximal, distal, and radial margins). - Treatment effect: No known pre-surgical therapy. - Lymphovascular invasion: Present. - Perineural invasion: Not identified. - Tumor deposits: Not identified. - Regional lymph nodes: - Number of lymph nodes involved: 0. - Number of lymph nodes examined: 31. - Additional pathologic findings: Atypical plasmacytoid cells present within lymph nodes, see comment. - Ancillary studies: Mismatch repair (MMR) testing by IHC has been ordered and will be reported in an addendum. - Pathologic stage classification (pTNM, AJCC 8th ed.): pT3 pN0. COMMENT: As part of [facility]' Quality Improvement Program, this case was PATIENT NAME: JAM WILKINS PATHOLOGY DATE OF : 44 REPORT #: [id number] PHYSICIAN: MAIKEL PATHOLOGY PCP: PRACHI FELTON MD REPORT IS CONFIDENTIAL AND NOT TO BE RELEASED WITHOUT AUTHORIZATION [facility] [address] [place], [place] [address] Signed reviewed by another member of our pathology staff. All of the lymph nodes demonstrate scattered atypical plasmacytoid cells within the intrafollicular and sinusoidal spaces characterized by enlarged, irregular nuclei, clumped chromatin, and bi- and multinucleation. No metastatic carcinoma is seen. Hematopathology consultation has been requested to review these findings and the results will be reported in an addendum. The results were spoken to Dr. López's office by Dr. Ga on 07/09/2020. NAL:NRT:cml:C1NR MICROSCOPIC EXAMINATION: Histologic sections of all submitted blocks are examined by light microscopy. These findings, together with the gross examination, support the pathologic diagnosis. GROSS DESCRIPTION: The specimen, labeled "EO," and designated on the requisition "terminal ileum, right colon, cecal tumor/intussusception," is received in formalin and consists of a previously opened colon with attached segment of terminal ileum. The specimen has attached adipose tissue up to 14.2 cm wide. The proximal terminal ileum margin is inked blue and the distal colonic margin is inked green. The segment of colon is 24.2 cm long and 9.3 cm in circumference. The terminal ileum is 9.2 cm long and 4.2 cm in circumference. The colonic and terminal ileum serosa is martines, smooth and glistening. The serosa is inked yellow, the radial margin is inked black, and the vascular root margin is inked red. On the colonic mucosa within the cecal pouch is a martines, fungating, 5.3 x 5.3 x 0.8 cm, partially ulcerated lesion that is 0.7 cm from the ileocecal valve, 10.4 cm from the radial margin, 11.3 cm from the terminal ileum proximal margin, 14.3 cm from the vascular root margin, and 19.7 cm from the distal colonic margin. The lesion grossly appears to invade through the mucosa, submucosa, muscularis and abuts the serosa. Additionally on the colonic mucosa is a slightly puckered, 1.5 x 0.8 x 0.2 cm area without a definitive lesion. The puckered area is 5.2 cm from the radial margin, 7.6 cm from the distal colonic margin, 9.5 cm from the ileocecal valve, 16.4 cm from the proximal terminal ileum margin, and 15.2 cm from the vascular root margin. The radial margin is inked orange. The area of puckering does not grossly appear to invade past the mucosa. PATIENT NAME: JAM WILKINS PATHOLOGY DATE OF : 44 REPORT #: [id number] PHYSICIAN: MAIKEL PATHOLOGY PCP: PRACHI FELTON MD REPORT IS CONFIDENTIAL AND NOT TO BE RELEASED WITHOUT AUTHORIZATION [facility] [address] [place], [place] [address] Signed The remaining colonic mucosa is martines with usual folds and without an additional discrete mass/lesion. The terminal ileum mucosa is martines with usual folds and without a discrete mass/lesion. The attached adipose tissue is removed, sectioned, and palpated for lymph nodes. Twenty-five pink-martines lymph node candidates from 0.2 up to 2.2 cm in greatest dimension are found. The remaining adipose tissue is placed in TriFix for further evaluation. After further evaluation 5 additional lymph node candidates are found. Represented sections are submitted as follows: (A1) proximal terminal ileum margin en face (A2) distal colonic margin en face (A3) radial margin and vascular root margin en face (A4-A5) lesion (A6-A7) lesion to normal mucosa (A8) lesion to ileocecal valve (A9) orange inked radial margin (A10-A11) area of puckering (A12) remaining colonic mucosa (A13) terminal ileum mucosa (A14) one bivalved lymph node candidate (A15) one bivalved lymph node candidate (A16) five lymph node candidates in toto (A17) six lymph node candidates in toto (A18) six lymph node candidates in toto (A19) six lymph node candidates in toto (A20) five additional lymph node candidates in toto AI (under the direct supervision of a pathologist) The Gross Description was prepared using a voice recognition system. The report was reviewed for accuracy; however, sound-alike word errors, addition and/or deletions may occur. If there is any question about this report, please contact Client Services. PERFORMING LABORATORY: The technical component was performed by [facility], [address] [place] [id number] (Marketing Assistant: Marci Acevedo MD; CLIA# [id number]). Professional interpretation was performed by [facility], [address] [place] [address] (CLIA# [id number]). COMMENT: PATIENT NAME: JAM WILKINS PATHOLOGY DATE OF : 44 REPORT #: [id number] PHYSICIAN: MAIKEL PATHOLOGY PCP: PRACHI FELTON MD REPORT IS CONFIDENTIAL AND NOT TO BE RELEASED WITHOUT AUTHORIZATION [facility] [address] [place], [place] [address] Signed Tumor cells show no loss of nuclear expression of MMR proteins. This correlates with a low probability of microsatellite instability. However, if there is a high clinical suspicion for Hylton syndrome (hereditary non-polyposis colorectal carcinoma syndrome) in this patient, additional testing should be considered. Please contact [facility] if such testing is indicated. NAL:cml ADDITIONAL NOTES: Immunohistochemical and/or in situ hybridization studies were performed on this case with the appropriate positive controls that react as expected. This test was developed and its performance characteristics determined by [facility]. It has not been cleared or approved by the U.S. Food and Drug Administration. The FDA has determined that such clearance or approval is not necessary. This test is used for clinical purposes. It should not be regarded as investigational or for research. [facility] is certified under the Clinical Laboratory Improvement Amendments of 1988 (CLIA) as qualified to perform high complexity clinical laboratory testing. REASON FOR ADDENDUM: To add results of additional test. ADDENDUM PATHOLOGIC DIAGNOSIS: Right colon and terminal ileum, adenocarcinoma of the cecum, microsatellite instability testing by IHC: - MLH1: Intact nuclear expression. - MSH2: Intact nuclear expression. - MSH6: Intact nuclear expression. - PMS2: Intact nuclear expression. INTERPRETATION: Normal pattern. ADDENDUM MICROSCOPIC EXAMINATION: A panel of four antibodies is selected which will detect 95% of microsatellite unstable carcinomas. Testing is performed at the request of Dr. Ga. Block: A1. Recut HE slide is prepared from the block. The presence of neoplastic glands and non-neoplastic internal control glands or stroma is confirmed. Internal control cells for MLH1, MSH2, PMS2 and MSH6 are positive. Neoplastic gland cells show the following: - MLH1: Positive. - MSH2: Positive. PATIENT NAME: JAM WILKINS PATHOLOGY DATE OF : 44 REPORT #: [id number] PHYSICIAN: MAIKEL PATHOLOGY PCP: PRACHI FELTON MD REPORT IS CONFIDENTIAL AND NOT TO BE RELEASED WITHOUT AUTHORIZATION [facility] [address] [place], [place] [address] Signed - MSH6: Positive. - PMS2: Positive. NAL:cml [place] Professional interpretation was performed by [facility], [address] [address] (CLIA# [id number]). Diagnostician: Dinorah Ga MD Pathologist Electronically Signed 07/11/2020 Copies: ~ PATIENT NAME: JAM WILKINS PATHOLOGY DATE OF : 44 REPORT #: [id number] PHYSICIAN: MAIKEL COOPER PCP: PRACHI FELTON MD REPORT IS CONFIDENTIAL AND NOT TO BE RELEASED WITHOUT AUTHORIZATION
--- NOTE | 2020-07-11 10:31 | NUR ---
PT WALKING IN SORTO, INDEPENDENT.
--- NOTE | 2020-07-11 11:30 | NUR ---
PT COMPLETED WITH WALKING, IV FLUIDS RESUMED. PT REQUESTING TO TAKE A NAP, RESTING IN BED. PT PROVIDED WITH FRESH WATER. PT DENIES OTHER NEEDS AT THIS TIME.
--- NOTE | 2020-07-11 14:40 | NUR ---
PT RESTING ON EDGE OF BED. PT CONTINUES TO REPORT FLATUS, NO BM YET. BOWEL TONES ACTIVE, DENIES NAUSEA. NO ACUTE CHANGES. PT REQUESTING TO NAP AND THEN WILL WALK IN THE AHLL THIS EVENING. PT DENIES OTHER NEEDS AT THIS TIME.
--- NOTE | 2020-07-11 16:45 | NUR ---
PT WALKING IN THE SORTO, INDEPENDENT.
--- NOTE | 2020-07-11 19:13 | NUR ---
VITALS AND I&OS WHERE LATE DO TO ME GETTING LOCKED OUT.
--- NOTE | 2020-07-11 19:36 | NUR ---
PATIENT SITTING UP IN BEDSIDE ARM CHAIR, PATIENT HAVING NO PAIN AT THIS TIME, PATIENT HAS NO NEEDS AT THIS TIME. CALL LIGHT IN REACH. REPORT FROM RUDDY ZELAYA.
--- NOTE | 2020-07-11 20:35 | NUR ---
PATIENT RESTING IN BED AND GIVEN 2 NORCO FOR 4/10 ABD DISCOMFORT WITH EVENING MEDS. PATIENT MOVING AND TAKING IN FLUIDS WELL INDEPENDENT IN ROOM. SURGICAL SITE LOOKS GREAT, PATIENT PASSING GAS NOW. CALL LIGHT IN REACH.
--- NOTE | 2020-07-11 20:45 | NUR ---
STORE CLERK ROUNDING NOTE. PT DENIES QUESTIONS OR CONCERNS AT THIS TIME. CALL LIGHT IN REACH. WHITE BOARD UPDATED.
--- NOTE | 2020-07-11 23:10 | NUR ---
PATIENT'S PAIN DOWN TO A 1/10 AFTER THE 2 NORCO AT PM MED PASS. IV BAG CHANGED. PATIENT DOING FINE , HAS NO NEEDS, IN BED WATCHING TV. CALL LIGHT IN REACH.
--- NOTE | 2020-07-12 01:30 | NUR ---
PATIENT RESTING QUIETLY ON CPAP, EYES CLOSED, RESPIRATIONS REGULAR AND EVEN, CALL LIGHT IN REACH.
--- NOTE | 2020-07-12 03:00 | NUR ---
PATIENT RESTING QUIETLY, CALL LIGHT IN REACH, EYES CLOSED, RESPIRATIONS REGULAR AND EVEN.
--- NOTE | 2020-07-12 04:31 | NUR ---
PATIENT AWAKE IN ROOM AT THIS TIME LOOKING AT THINGS ON HIS PHONE AND HAS NO NEEDS AT THIS TIME. PATIENT GOT A FEW HOURS SLEEP USING HIS CPAP AND ONLY NEEDED PAIN MEDS AT THE EVENING MED PASS FOR 4/10 ABD PAIN ABD INCISION LOOKS GREAT. PATIENT HAD 2 NORCO FOR THE PAIN. CALL LIGHT IN REACH AND PATIENT HAS BEEN INDEPENDENT IN THE ROOM AND IS PASSING GAS.
--- NOTE | 2020-07-12 06:41 | NUR ---
PATIENT IN BED READING THINGS ON HIS PHONE, NO NEEDS AT THIS TIME, CALL LIGHT IN REACH.
--- NOTE | 2020-07-12 07:25 | NUR ---
BEDSIDE HANDOFF REPORT RECEIVED FROM DOCUMENT PROCESSOR RN. PT WALKING IN THE ROOM, INDEPENDENT. PT REPORT OF FLATUS THIS AM. PT DENIES NEEDS AT THIS TIME.
--- NOTE | 2020-07-12 08:45 | NUR ---
PT RESTING IN CHAIR. PT ON ROOM AIR, LUNG SOUNDS CLEAR. BOWEL TONES ACTIVE, DENIES NAUSEA. MIDLINE INCISION OPEN TO AIR, JACQUIE IN PLACE. PT REPORT OF PAIN, STATES TOLERABLE AT THIS TIME, DECLINING PAIN MEDICATION. D5LR INFUSING AT 50ML/HR. CMS INTACT, WITHOUT EDEMA. VSS. PLAN FOR SMALL BOWEL FOLLOW THROUGH TODAY. PT DENIES OTHER NEEDS AT THIS TIME.
--- NOTE | 2020-07-12 10:15 | NUR ---
IV FLUIDS INCREASED TO 75ML/HR PER ORDER.
--- NOTE | 2020-07-12 14:13 | NUR ---
PT SLEEPING, LEFT UNDISTURBED.
--- NOTE | 2020-07-12 15:30 | NUR ---
PT REQUESTING FOR IV TO BE CHANGED, IV TUBE HAD FALLEN IN URINAL. NEW IV PLACED TO LEFT FOREARM, 20G. IV FLUIDS RESUMED, D5LR AT 75ML/HR. PT HAD BM, LOOSE. VOIDING QS. NO ACUTE CHANGES. PT DENIES OTHER NEEDS AT THIS TIME.
--- NOTE | 2020-07-12 17:49 | NUR ---
PT HAD SMALL BOWEL FOLLOW THROUGH, DID NOT SHOW OBSTRUCTION, PT HAD BM TODAY. DIET ADVANCED TO SOFT DIET. IV FLUIDS INFUISNG AT 50ML/HR. PT INDEPENDENT, WALKING IN THE SORTO. VOIDING QS.
--- NOTE | 2020-07-12 20:19 | NUR ---
coop in bed, took meds w/o problems
--- NOTE | 2020-07-12 21:08 | NUR ---
Asst with pt's vitals, call light in reach, nothing else requested at this time
--- NOTE | 2020-07-12 22:53 | NUR ---
AWAKE, WATCHING TV, VISITING WITH FAMILY VIA PHONE, NO C/O PAIN OR SIDCOMFORT, ON ROOM AIR, STABLES MIDLINE INCION INTACT. NO DRAINAGE, PINK, DRY. WALKS IN ROOM, VOIDING QS, HAS HAD SEVERAL SMALL SOFT BMS. IVF INFUSING, NO C/O PAIN
--- NOTE | 2020-07-12 23:19 | NUR ---
recorded void on I&O sheet, emptied collection hat for pt to use again
--- NOTE | 2020-07-13 01:22 | NUR ---
resting, wearng cpap, ivf infusing, call light at bedside
--- NOTE | 2020-07-13 04:52 | NUR ---
resting, no c/o pain. IVF infusing, using CPAP. call light and fluids at bedside
--- NOTE | 2020-07-13 06:21 | NUR ---
WAS MEDICATED X1 PER C/O ABD PAIN. MIDLINE ABD INCISION OPEN TO AIR, JACQUIE IN PLACE, PINK, DRY,EDGES WELL APPROX. HAD BM YESTERDAY, PASSING GAS, ABD SLIGHTLY DISTENDED. VOIDING QS, IVF INFUSING , NO EMESIS. ON ROOM AIR. WALKED HALLWAYS SEVERAL TIMES, TOLERATED WELL. COOP WITH ASSESSMENT, USES CPAP AT HS, ON ROOM AIR WHEN AWAKE
--- NOTE | 2020-07-13 07:10 | NUR ---
BEDSIDE HANDOFF REPORT RECEIVED FROM ORTHOPEDIC DENTIST RN. PT WALKING AROUND ROOM. PT DENIES NEEDS AT THIS TIME.
[2020-07-13] MEDS ORDERED: AMLODIPINE BESYL5 MG PO (09:09)
--- NOTE | 2020-07-13 09:45 | NUR ---
PT SITTING IN CHAIR. DR. HUTCHINSON HAS ALREADY ROUNDED ON PT AND PT WILL BE DISCHARGED TODAY. PT ON ROOM AIR, LUNG SOUNDS CLEAR, DENIES SOB. PT TOLERATING SOFT DIET, DENIES NAUSEA, BOWEL TONES ACTIVE. MIDLINE INCISION WITH JACQUIE, EDGES WELL APRROXIMATED WITHOUT REDNESS. CMS INTACT, WITHOUT EDEMA. IV CATH REMOVED PT IS BEING DISCHARGED. PT GOING TO SHOWER BEFORE DC. PT DENIES OTHER NEEDS AT THIS TIME.
[2020-07-13] MEDS ORDERED: LAMOTRIGINE ODT50 MG PO (10:21)
[2020-07-13] MEDS ORDERED: NORCO 5-325 TA1 EACH PO (10:40)
[2020-07-13] MEDS ORDERED: TYLENOL325 MG PO (10:42)
--- NOTE | 2020-07-13 11:40 | NUR ---
HALF JACQUIE REMOVED PER ORDER, LEFT BOTTOM 2 JACQUIE INPLACE, TOTAL 12 JACQUIE REMOVED, 14 JACQUIE REMAINING, PT TOLERATED WELL. HERIBERTO INSTRUCTIOSN REVIEWED WITH PT. PT AWAITING TO [facility]URN TO [facility]. PHARMACIST DEVAUGHN IN TO TALK TO PT.
--- NOTE | 2020-07-14 06:22 | DS ---
[facility] [address] [place], [place] [address] Signed ADMISSION DATE: 07/05/2020 DISCHARGE DATE: 07/13/2020 FINAL DIAGNOSES: 1. Right colon cancer/cecal cancer. 2. Adenomatous colonic polyps. 3. Diverticulosis. 4. Severe anemia. PROCEDURES: 1. Colonoscopy with hot biopsy. 2. Right colectomy with stapled aahy-jf-degd ileocolic anastomosis. HISTORY: Jam is a 79-year-old gentleman from [place], [place]. His daughter lives in the [facility]. He and his recently moved to the [facility] several months ago. While in [place], he was having decreased energy and fatigue. He was found to have severe anemia, and apparently had some melena as well. He did have an upper endoscopy performed and apparently had an ulcer. He was H pylori positive. He took medications and seemed to be better. He also took iron and overall was feeling better. He said he stopped the iron for a while and his stool went back to brown. He had plans to follow up with his toddler teacher for a colonoscopy as well; however, he moved over to [place] in the meantime. He had re-established with the primary care provider here. He was still having some shortness of breath and dyspnea on exertion, so he underwent a stress test with [facility], that actually turned out pretty well. He then started having increasing right-sided abdominal pain about two weeks prior to this admission. No significant nausea, vomiting, or diarrhea. He came to the emergency room for evaluation. He was severely anemic with hemoglobin of 7 and a mean cell volume of 77. White count was normal. CT scan confirmed ileocolonic intussusception along with his diverticulosis. He told me he has also a few couple of small lung nodules and some chronic issues with the kidneys and ureters and could be evaluated as an outpatient. He mentioned his prostate cancer, and he certainly had radiation, but he is quite confident that he had chemotherapy as well, and he told me since then his memory never been the best. We were still awaiting some of the outside records, but in the meantime we admitted him with respect to the above. HOSPITAL COURSE: Jam was admitted as above and was able to tolerate the bowel prep because of his partial obstruction from his ileocolonic intussusception. He underwent his colonoscopy, and indeed had an adenomatous polyp in the left colon along with jfxatny-cp-jymreagi sigmoid diverticulosis. We could see the intussusception and probably what we thought Electronically Signed By: BALDEV LÓPEZ MD 07/14/20 0622 PATIENT NAME: JAM WILKINS DISCHARGE SUMMARY DATE OF : 44 REPORT #: [id number] PHYSICIAN: BALDEV LÓPEZ MD PCP: PRACHI FELTON MD REPORT IS CONFIDENTIAL AND NOT TO BE RELEASED WITHOUT AUTHORIZATION [address] [address] Signed was going to be a tumor on the side of the colon. He went to the operating room the next morning after receiving a total of 4 units of packed red blood cells over a couple of days. We also juan jose a preoperative CEA level and it was 1.54 ng/mL, which is normal. He underwent an uncomplicated right colectomy for the tumor in the cecum. He has a stapled dteu-jc-rkio ileocolic anastomosis. He did well both intra and postop. Eventually, his pathology came back with a cecal adenocarcinoma and 0/31 lymph nodes were involved. Of course, additional testing is still pending. He was having some abdominal distention and only a tiny bit of flatus. Consequently, he had a Gastrografin surgery and small-bowel follow-through yesterday. It went through and out the rectum, he has had multiple episodes now of bowel movements along with lots of gas. He is doing quite well on his soft diet. At this point, he was asked him to go home. On exam, his abdomen is minimally distended. There is no longer any tympany, it is quite soft and nontender. His incision is healing well without any local signs or symptoms of infection. In the meantime, our Internal Medicine Service did increase his morning dose of Lamictal and it has been sent to his pharmacy through the computer. DISCHARGE PLANS AND MEDICATIONS: I have been talking with Jam each and every day. We are going to allow him to go home on a regular diet. He is not to do any heavy pushing, pulling, or lifting over 20 pounds. He can perform his activities of daily living including walking up and down stairs, and showering and bathing as usual. We are going to remove one-half of the isidra today, and we will remove the other half in 3-5 days when he follows up in my office. We are still trying to track down his records from [place]. In addition, he did ask for a small amount of hydrocodone mainly if he gets or need some help sleeping. We are going to give him [place] 5/325 one tablet p.o. q.6 hours p.r.n. for severe postoperative pain. We will dispense 15 tablets with no refills. He is going to avoid aspirin and NSAIDs because of his recent ulcer. He is welcome to take a little Tylenol as needed for spgm-sk-ogzynymp postoperative pain. He can purchase that hvav-evr-rkvlfhj. He is going to resume his chronic medications, namely his Lamictal, although with an increased a.m. dose per the Internal Medicine Service. I reviewed all this with Jam in detail now for several days. He has expressed understanding and agrees with the above plan. Baldev López MD ALB/MODAna /[id number] Electronically Signed By: BALDEV LÓPEZ MD 07/14/20621 PATIENT NAME: JAM WILKINS DISCHARGE SUMMARY DATE OF : 44 REPORT #: [id number] PHYSICIAN: BALDEV LÓPEZ MD PCP: PRACHI FELTON MD REPORT IS CONFIDENTIAL AND NOT TO BE RELEASED WITHOUT AUTHORIZATION [facility] [address] [place], [place] [address] Signed cc: Baldev López MD Copies: BALDEV LÓPEZ MD ~ Electronically Signed By: BALDEV LÓPEZ MD 07/14/20621 PATIENT NAME: JAM WILKINS DISCHARGE SUMMARY DATE OF : 44 REPORT #: [id number] PHYSICIAN: BALDEV LÓPEZ MD PCP: PRACHI FELTON MD REPORT IS CONFIDENTIAL AND NOT TO BE RELEASED WITHOUT AUTHORIZATION
== END 2020-07-13 12:35 | disposition home or self-care (01) | DRG 330 ==
LOC: ED 01:00 → MS 04:13
PROVIDERS: ADMIT Colon & Rectal Surgery
PROC: 30233N1 Transfusion of Nonautologous Red Blood Cells into Peripheral Vein, Percutaneous Approach (ICD-10-PCS; 2020-07-05)
PROC: 0DBG8ZX Excision of Left Large Intestine, Via Natural or Artificial Opening Endoscopic, Diagnostic (ICD-10-PCS; principal; 2020-07-06 09:00)
PROC: 0DTF0ZZ Resection of Right Large Intestine, Open Approach (ICD-10-PCS; 2020-07-07)
DX: C18.0 Malignant neoplasm of cecum (principal); K56.1 Intussusception; Z20.828 Contact with and (suspected) exposure to other viral communicable diseases; K57.30 Diverticulosis of large intestine without perforation or abscess without bleeding; F90.9 Attention-deficit hyperactivity disorder, unspecified type; G40.909 Epilepsy, unspecified, not intractable, without status epilepticus; D50.9 Iron deficiency anemia, unspecified; D12.4 Benign neoplasm of descending colon; I10 Essential (primary) hypertension; G47.30 Sleep apnea, unspecified; Z85.46 Personal history of malignant neoplasm of prostate; Z88.0 Allergy status to penicillin; Z79.899 Other long term (current) drug therapy
CPT/HCPCS: 00790; 36415; 36430; 51798; 64488; 74177; 74250; 76942; 80048; 80053; 81001; 82378; 82542; 82607; 82728; 83540; 83690; 83735; 84100; 84134; 84207; 84466; 85025; 85610; 85730; 86704; 86706; 86709; 86803; 86850; 86900; 86901; 86920; 87340; 88305; 88309; 88341; 88342; 88364; 88365; 93005; 93010; 94760; 94762; 96375; 99285-25; C9113; C9803; J0330; J0690; J1100; J1170; J1650; J2001; J2250; J2405; J2704; J2795; J3010; J7121; P9016; Q9967

== ENCOUNTER 2020-10-15 07:45 | Emergency (ER) | payer MEDICARE, OTHER ==
[~2020-10-15] VITALS: Ht 175.3 cm; Wt 70.3 kg
[~2020-10-15 07:45] MED LIST: AMLODIPINE BESYL5 MG PO; LAMICTAL100 MG PO; LAMOTRIGINE ODT50 MG PO; NORCO 5-325 TA1 EACH PO; OMEPRAZOLE40 MG PO; TYLENOL325 MG PO
[2020-10-15] MEDS ORDERED: ONDANSETRON ODT8 MG PO (10:40)
[2020-10-15] MEDS ORDERED: FLOMAX0.4 MG PO (10:40)
[2020-10-15] MEDS ORDERED: NORCO 7.5-3251 EACH PO (10:40)
== END 2020-10-15 10:55 | disposition home or self-care (01) ==
LOC: ED 07:45
DX: N13.2 Hydronephrosis with renal and ureteral calculous obstruction (principal); I10 Essential (primary) hypertension; Z88.0 Allergy status to penicillin; Z79.899 Other long term (current) drug therapy
CPT/HCPCS: 74177; 80053; 81001; 85025; 99284-25; J1885; J2405; J7030; Q9967

== ENCOUNTER 2021-08-18 06:36 | Day surgery (SDC) | payer MEDICARE, OTHER ==
[~2021-08-18] VITALS: Ht 175.3 cm; Wt 71.2 kg
[~2021-08-18 06:36] MED LIST changes: +FLOMAX0.4 MG PO; +NORCO 7.5-3251 EACH PO; +ONDANSETRON ODT8 MG PO
[2021-08-18] MEDS ORDERED: LISINOPRIL2.5 MG PO (06:57)
--- NOTE | 2021-08-18 07:58 | NUR ---
08/18/21 0757 Nyasia Reid 1584-PATIENT ARRIVED TO PACU ON 2L NC RR EVEN. PATIENT REACTIVE TO VERBAL STIMULI OPENING EYES REMAINS VERY DROWSY AND FALLS BACK ASLEEP. ABDOMEN SOFT. LAYING LEFT LATERAL. IVF INFUSING.
--- NOTE | 2021-08-18 11:57 | OR ---
[facility] [address] [place], [place] [address] Signed DATE OF OPERATION: 08/18/2021 SURGEON: Baldev Hutchinson MD PREOPERATIVE DIAGNOSES: 1. Right colectomy with stage II colon cancer in June 2020. 2. Colonoscopy with adenomatous and hyperplastic polyps and diverticulosis in June 2020. 3. Three previous colonoscopies, all unremarkable. 4. Prostate cancer with chemo and radiation therapy, age 65. POSTOPERATIVE DIAGNOSES: 1. 6 mm polyp at 95 cm. 2. 4 mm polyp at 85 cm. 3. 4 mm polyp at 50 cm. 4. 5 mm polyp at 16 cm (rectosigmoid junction). 5. 4 mm polyp at 4 cm. 6. Moderate sigmoid diverticulosis. 7. Ileocolonic anastomosis at 120 cm. 8. Moderately poor bowel prep. PROCEDURE: Colonoscopy with hot biopsy. ESTIMATED BLOOD LOSS: None. INDICATIONS: Jam is a 80-year-old gentleman who regionally lived around the [place], [place] area. He was in the process of moving to [place] to be closer to his children in [place], [place]. During that time, he was found to have melena with H pylori associated gastritis. He was treated appropriately and that improved. His stools had gone back to brown. Because of his move, he was unable to schedule his colonoscopy in [facility]. He ended up in [place]. He again was feeling weak and came to our emergency room for evaluation. The CT scan showed intussusception of the cecum. I admitted him and did his colonoscopy and found the intussusception along with adenomatous and hyperplastic polyps and diverticulosis. He went to the surgery the following morning and I did his right colectomy with a standard ileocolonic anastomosis stapled [id number]. This was a stage II colon cancer. He did not require chemotherapy. In the meantime, he is doing well, tolerating his diet, having good bowel movements. He Electronically Signed By: BALDEV HUTCHINSON MD 08/18/21 1157 PATIENT NAME: JAM WILKINS OPERATIVE REPORT DATE OF : 44 REPORT #: [id number] PHYSICIAN: BALDEV HUTCHINSON MD PCP: PRACHI FELTON MD REPORT IS CONFIDENTIAL AND NOT TO BE RELEASED WITHOUT AUTHORIZATION [facility] [address] [place] [id number] Signed returns now for followup colonoscopy. He said his memory is not the best. In the office, I had given him a pamphlet on colonoscopy. We had gone over the risks including, but not limited to gas bloating, crampy abdominal pain, bleeding, perforation requiring surgery, and missed diagnosis. We had also reviewed the bowel prep line by line. Unfortunately, he had a moderately poor bowel prep today. He had quite a bit of particulate matter in the stool. In that regard, he probably needs to double bowel prep in the future. He does have posttraumatic stress disorder from the service. He said IV conscious sedation and general anesthesia both caused him some trouble. He said he can get through it. We offered monitored anesthesia care with propofol, but he declined. He had expressed understanding and wished to proceed. PROCEDURE NOTE: Jam was taken in the endoscopy suite and placed in the left lateral decubitus position. He was given 5 mg of Versed and 100 mcg of fentanyl to cover the case. A digital rectal exam was performed. He has good sphincter tone. No external hemorrhoids. His prostate is fairly small, but indurated. The left is slightly larger than the right. The adult colonoscope was introduced and advanced under direct visualization of camera. We did need some extra sedation and abdominal compression in order to advance the scope. Unfortunately, he had areas of liquid particulate stool matter that simply clogged our scope. Fortunately, we were able to get past all those and up to the anastomosis at 120 cm. The anastomosis was well healed. No evidence of any recurrent cancer. The scope was then slowly withdrawn. We were able to see at least 85 if not 90% of the mucosa. The above-mentioned polyps were easily removed with the help of hot biopsy forceps. Once again, he has moderate diverticula in the sigmoid colon. They were moderate in size, moderate in number, and scattered about. Upon retroflexion of scope in the rectum, we saw no pathology above the anal canal other than the tiny polyp which we removed. After this, the gas was suctioned out and colonoscope removed. Jam tolerated this procedure quite well. RECOMMENDATIONS: I will see Jam in my office in the next 7 to 14 days to review his results. He should consider a double bowel prep in the future. In addition, he should consider repeat colonoscopy in one year. Baldev Hutchinson MD ALB/MODL /[id number] Electronically Signed By: BALDEV HUTCHINSON MD 08/18/21 1157 PATIENT NAME: JAM WILKINS OPERATIVE REPORT DATE OF : 44 REPORT #: [id number] PHYSICIAN: BALDEV HUTCHINSON MD PCP: PRACHI FELTON MD REPORT IS CONFIDENTIAL AND NOT TO BE RELEASED WITHOUT AUTHORIZATION [facility] [address] [place] [address] Signed cc: MD Prachi Bolanos MD Matthew Sericati, MD Copies: PRACHI FELTON DMD, ROBERT C MD ~ Electronically Signed By: BALDEV HUTCHINSON MD 08/18/21 1157 PATIENT NAME: JAM WILKINS OPERATIVE REPORT DATE OF : 44 REPORT #: [id number] PHYSICIAN: BALDEV HUTCHINSON MD PCP: PRACHI FELTON MD REPORT IS CONFIDENTIAL AND NOT TO BE RELEASED WITHOUT AUTHORIZATION
--- NOTE | 2021-08-19 18:33 | PATH ---
[facility] [address] [place], [place] [address] Signed SPECIMEN(S): A TRANSVERSE COLON POLYP AT 95 CM SPECIMEN(S): B POLYP AT 85 CM SPECIMEN(S): C POLYP AT 52 CM SPECIMEN(S): D RECTAL POLYP AT 16 CM SPECIMEN(S): E POLYP AT 4 CM SPECIMEN SOURCE: A. TRANSVERSE COLON POLYP AT 95 CM B. POLYP AT 85 CM C. POLYP AT 52 CM D. RECTAL POLYP AT 16 CM E. 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 These findings, together with the gross examination, support the pathologic diagnosis. FINAL PATHOLOGIC DIAGNOSIS: A. Colon, transverse, polyp at 95 cm, polypectomy: - Fragments of tubular adenoma. - Negative for high-grade dysplasia or malignancy. B. Colon, polyp at 85 cm, polypectomy: - Cauterized colonic mucosa with no histopathologic abnormality. - Negative for dysplasia or malignancy. C. Colon, polyp at 52 cm, polypectomy: - Tubular adenoma. - Negative for high-grade dysplasia or malignancy. D. Rectum, polyp at 16 cm, polypectomy: - Serrated polyp with low-grade dysplasia. - Negative for high-grade dysplasia or malignancy. E. Colon, polyp at 4 cm, polypectomy: - Tubular adenoma. - Negative for high-grade dysplasia or malignancy. COMMENT: Regarding specimen B: Multiple additional deeper levels were examined. NAL:cml:C2NR PATIENT NAME: JAM WILKINS PATHOLOGY DATE OF : 44 REPORT #: [id number] PHYSICIAN: MAIKEL COOPER PCP: PRACHI FELTON MD REPORT IS CONFIDENTIAL AND NOT TO BE RELEASED WITHOUT AUTHORIZATION [facility] [address] [place], [place] [address] Signed GROSS DESCRIPTION: Five specimens are received in five containers, labeled "EO." A. The specimen, labeled "EO, transverse colon polyp at 95 cm," is received in formalin and consists of two martines soft tissue fragments that measure 0.1 cm in greatest dimension. The specimen is entirely submitted in cassette (A1). B. The specimen, labeled "EO, colon polyp at 85 cm," is received in formalin and consists of one martines soft tissue fragment that measures 0.1 cm in greatest dimension. The specimen is entirely submitted in cassette (B1). C. The specimen, labeled "EO, colon polyp at 52 cm," is received in formalin and consists of one martines soft tissue fragment that measures 0.2 cm in greatest dimension. The specimen is entirely submitted in cassette (C1). D. The specimen, labeled "EO, rectal polyp at 16 cm," is received in formalin and consists of one martines soft tissue fragment that measures 0.2 cm in greatest dimension. The specimen is entirely submitted in cassette (D1). E. The specimen, labeled "EO colon polyp at 4 cm," is received in formalin and consists of two martines soft tissue fragment that measures 0.3 cm in greatest dimension. The specimen is entirely submitted in cassette (E1). JS (under the direct supervision of a pathologist) The Gross Description was prepared using a voice recognition system. The report was reviewed for accuracy; however, sound-alike word errors, addition and/or deletions may occur. If there is any question about this report, please contact Client Services. PERFORMING LABORATORY: The technical component was performed by [facility], [address] [place] [id number] (Car Cooper: Marci Acevedo MD; CLIA# [id number]). Professional interpretation was performed by [facility], [address] [facility] [place] [address], [place] [address] (CLIA# [id number]). Diagnostician: Dinorah Ga MD Pathologist Electronically Signed 08/19/2021 Copies: PATIENT NAME: JAM WILKINS PATHOLOGY DATE OF : 44 REPORT #: [id number] PHYSICIAN: MAIKEL PATHOLOGY PCP: PRACHI FELTON MD REPORT IS CONFIDENTIAL AND NOT TO BE RELEASED WITHOUT AUTHORIZATION [facility] [address] [facility] [place], [place] [address] Signed ~ PATIENT NAME: JAM WILKINS PATHOLOGY DATE OF : 44 REPORT #: [id number] PHYSICIAN: MAIKEL COOPER PCP: PRACHI FELTON MD REPORT IS CONFIDENTIAL AND NOT TO BE RELEASED WITHOUT AUTHORIZATION
== END 2021-08-18 08:40 | disposition home or self-care (01) ==
LOC: OPS 06:36 → DS 06:36 → OPS 07:30 → DS 09:00 → OPS 09:00
PROVIDERS: ATTEND Colon & Rectal Surgery
PROC: 0DBE8ZZ Excision of Large Intestine, Via Natural or Artificial Opening Endoscopic (ICD-10-PCS; principal; 2021-08-18 07:30)
DX: Z08 Encounter for follow-up examination after completed treatment for malignant neoplasm (principal); D12.3 Benign neoplasm of transverse colon; D12.8 Benign neoplasm of rectum; K57.30 Diverticulosis of large intestine without perforation or abscess without bleeding; I10 Essential (primary) hypertension; F43.10 Post-traumatic stress disorder, unspecified; Z85.038 Personal history of other malignant neoplasm of large intestine; Z90.49 Acquired absence of other specified parts of digestive tract; Z85.46 Personal history of malignant neoplasm of prostate; Z92.21 Personal history of antineoplastic chemotherapy; Z92.3 Personal history of irradiation
CPT/HCPCS: 99153; G0500; J2250; J3010; J7121

== ENCOUNTER 2023-01-10 05:50 | Day surgery (SDC) | payer MEDICARE, OTHER ==
[~2023-01-10] VITALS: Ht 165.1 cm; Wt 60.9 kg
[~2023-01-10 05:50] MED LIST changes: +CIALIS10 MG PO; +LISINOPRIL2.5 MG PO
[2023-01-10] MEDS ORDERED: MULTI VITAMIN1 EACH PO (06:11)
--- NOTE | 2023-01-10 09:30 | NUR ---
01/10/23 0930 Maribel Golden 0993 PT ARRIVED TO PACU ON RA, PT WAKES OFF AND ON. PT DENIES PAIN AND NAUSEA. PT TALKING TO RN AND EASILY FALLS BACK TO SLEEP. PERIOD OF APNEA NOTED WHEN ASLEEP AND RN WAKES PT OFF AND ON AND ENCOURAGES DEEP BREATHING.
--- NOTE | 2023-01-10 10:04 | NUR ---
0945: PT ARRIVES TO DS RM 12 FROM PACU VIA STRETCHER AWAKE AND ALERT. PT DENIES PAIN OR NAUSEA, HAS COFFEE WITH BUTTER PER REQUEST. PT HAS MANY QUESTIONS, CALL LIGHT WITHIN REACH. DC CRITERIA EXPLAINED TO PT.
--- NOTE | 2023-01-10 10:17 | NUR ---
PT ALERT, ORIENTED AND HIS WILL ARRIVE FOR DC. PT SEEMS VERY CONFIDENT IN CARE. MAN OF STRONG KEYON, PT REQUESTS PRAYER-MENTIONED THAT FR TUCKER IS PLANNING ON CHECKING ON HIM.
--- NOTE | 2023-01-10 10:49 | NUR ---
PT RESTING IN BED WITH HEADPHONES IN PLACE WATCHING CELL PHONE. PT DENIES ANY PAIN WHEN ASKED AND TOLERATES PO WITH NO NAUSEA. PT WILL USE CALL LIGHT WITH URGE TO VOID, LIGHT WITHIN REACH.
--- NOTE | 2023-01-10 11:54 | NUR ---
PT STANDING IN ROOM COMPLETELY DRESSED ON ARRIVAL. PT STATES, "I TRIED TO GO PEE BUT THERE WAS JUST A FEW DROPS OF BLOOD AND NOT MUCH URINE." PT DECLINES ANY FOOD, STATES BEING ON "A CARNIVORE DIET" AND IS ON THIRD CUP OF COFFEE WITH BUTTER. PT STATES FEELING "SLIGHT VERTIGO" AND ENCOURAGED TO SIT DOWN. CALL LIGHT WITHIN REACH, WILL CONTINUE TO MONITOR URINE OUTPUT.
--- NOTE | 2023-01-10 17:52 | NUR ---
[id number]: PT CONT TO REST AT BEDSIDE IN CHAIR FULLY DRESSED, WILL USE CALL LIGHT WITH URGE TO VOID. [id number]: PT USES CALL LIGHT TO ALERT RN OF URGE TO VOID, AMBULATES WITH STEADY GAIT TO BATHROOM AND ABLE TO VOID APPROX 75 MLS CONCENTRATED YELLOW URINE. THIS RN CALLS PT SPOUSE FOR SAFE RIDE HOME. DC INSTRUCTIONS PRESENTED VERBALLY AND WRITTEN TO PT. PT AWARE OF NEED TO TAKE PRESCRIPTION TO PHARMACY. PT DC VIA WC TO SPOUSE WAITING AT [facility] ENTRANCE TO HOME.
--- NOTE | 2023-01-11 14:25 | OR ---
[facility] [address] [facility] [place], [place] [address] Signed DATE OF OPERATION: 01/10/2023 SURGEON: Felicia Calloway MD PREOPERATIVE DIAGNOSES: 1. Obstructing 3 mm left ureterovesical junction calculus with resulting severe left hydronephrosis. 2. Status post left nephrostomy tube placement, followed by antegrade double-J ureteral stent insertion. POSTOPERATIVE DIAGNOSES: 1. Obstructing 3 mm left ureterovesical junction calculus with resulting severe left hydronephrosis. 2. Status post left nephrostomy tube placement, followed by antegrade double-J ureteral stent insertion. NAMES OF PROCEDURES: 1. Diagnostic cystoscopy with left retrograde pyelogram. 2. Left semi-rigid ureteroscopy with laser lithotripsy of ureteral calculus. 3. Irrigation of small bladder calculi. 4. Left ureteral stent exchange. ANESTHESIA: General. ESTIMATED BLOOD LOSS: Minimal. COMPLICATIONS: None. SPECIMENS: Ureteral and bladder calculi sent to the lab for stone analysis. DRAINS: 1. A 7 x 24 cm double-J ureteral stent inserted into the left collecting system. 2. Left nephrostomy tube, capped. INDICATIONS FOR PROCEDURE: Jam is a very pleasant 82-year-old gentleman who is well-known to me. In mid 2021, Electronically Signed By: FELICIA CALLOWAY MD 01/11/23 1425 PATIENT NAME: JAM WILKINS OPERATIVE REPORT DATE OF : 44 REPORT #: [id number] PHYSICIAN: FELICIA CALLOWAY MD PCP: PRACHI FELTON MD REPORT IS CONFIDENTIAL AND NOT TO BE RELEASED WITHOUT AUTHORIZATION [facility] [address] [place], [place] [address] Signed the patient presented to me with an incidental finding of severe left hydroureteronephrosis secondary to an actively obstructing 3 mm left ureterovesical junction calculus. I attempted a left ureteroscopy with laser lithotripsy and basket extraction of stones. However, I was unable to locate the left ureteral orifice due to severe bladder wall trabeculation. He subsequently underwent left nephrostomy tube placement and approximately one month ago underwent antegrade insertion of a double-J ureteral stent. His nephrostomy tube has been capped since that time. He presents today to undergo definitive extraction of his obstructing 3 mm left UVJ calculus. OPERATING FINDINGS: 1. On cystoscopy, there was no evidence of any suspicious masses, lesions or stones. There were a couple of very small bladder calculi, measuring approximately 5 mm in size. There is an indwelling left ureteral stent with an obvious distal coil present. There is diffuse grade 3-4 bladder wall trabeculation noted. 2. Indwelling left ureteral stent was removed fully intact, leaving a 0.035 Sensor wire behind within the left renal pelvis to act as a guidewire. 3. The 3 mm ureterovesical junction stone was noted to be impacted into the left lateral wall of the left distal ureter. The stone was fragmented using a 270 micron fiber at 8 and 0.8 settings. The tiny stone fragments drifted into the patient's bladder. Repeat ureteroscopy confirmed that the stone had been successfully extracted. 4. Left retrograde pyelogram prior to the procedure revealed mild residual left ureteral nephrosis with an obvious filling defect distally consistent with the actively obstructing stone. 5. Once the stone was completely extracted, a fresh 7 x 24 cm double-J ureteral stent was inserted into the left collecting system under direct visualization without difficulty. DESCRIPTION OF PROCEDURE: After informed consent was obtained, the patient was taken back to the operating room. He was transferred from the [facility] to the operating room table, where general anesthesia was induced. He was placed in the dorsal lithotomy position and his genitalia prepped and draped in the standard sterile fashion. We confirmed that his left nephrostomy tube was indeed capped. Using a 30-degree lens on a 22.5-Malagasy introducer, rigid cystoscope was inserted through his urethra and into his bladder under direct visualization. Panendoscopic views of bladder then obtained. Please see above findings. The indwelling ureteral stent was removed using graspers to the level of the urethral meatus. I passed a 0.035 Sensor wire through the indwelling stent up into the left renal pelvis. The indwelling stent was then removed fully intact, leaving the Sensor wire behind. A Sensor wire was then set aside as a safety wire. I then reinserted the cystoscope and performed a diagnostic cystoscopy. Please see above findings. I advanced a whistle-tip catheter into the left ureteral orifice and a left retrograde pyelogram was performed. Please see above findings. I removed the cystoscope and Electronically Signed By: FELICIA CALLOWAY MD 01/11/23 1425 PATIENT NAME: JAM WILKINS OPERATIVE REPORT DATE OF : 44 REPORT #: [id number] PHYSICIAN: FELICIA CALLOWAY MD PCP: PRACHI FELTON MD REPORT IS CONFIDENTIAL AND NOT TO BE RELEASED WITHOUT AUTHORIZATION [address] [address] Signed inserted a semi-rigid ureteroscope using a semi-rigid ureteral scope with a 7 degree lens. Left diagnostic ureteroscopy was then performed. Please see above findings. The 3 mm left ureterovesical junction calculus was noted to be impacted into the left lateral wall of the ureter. The stone was fragmented using 8 and 0.8 settings with a 270 micron fiber and the holmium laser. The stone fragmented easily and the fragments fell back into the bladder. Repeat ureteroscopy revealed that the 100% of the stone burden was extracted at that time. I then removed the ureteroscope and then back loaded a rigid cystoscope with the indwelling Sensor wire. Over the Sensor wire, I passed a 7 x 24 cm double-J ureteral stent into the left collecting system without difficulty. Once I pulled the wire, an adequate proximal coil was noted within the left kidney and an adequate distal coil was noted on cystoscopy. The patient's bladder was then irrigated of all stony debris using a Carlos syringe. The stones were collected and placed in a specimen cup to be sent to pathology for stone analysis. The patient's bladder was then drained and the cystoscope was removed. The procedure was then terminated. The patient tolerated the procedure well without any complication. He will now be transferred to the postanesthesia care unit in stable condition. DISPOSITION: I discussed the details of today's procedure with the patient's and answered all of her questions. He will be sent home today with oxycodone 5 mg one tablet p.o. q.6 hours p.r.n. pain, dispense #20, along with Macrobid 100 mg p.o. b.i.d. for a total of 7 days. He will be scheduled return to clinic on January 24 to have his left nephrostomy tube removed. He will then return to clinic in late January 2023 to undergo cystoscopy with extraction of his indwelling left ureteral stent. MD LUIS Arguelles/MODL /[id number] Copies: ~ Electronically Signed By: FELICIA CALLOWAY MD 01/11/23 1425 PATIENT NAME: JAM WILKINS OPERATIVE REPORT DATE OF : 44 REPORT #: [id number] PHYSICIAN: FELICIA CALLOWAY MD PCP: PRACHI FELTON MD REPORT IS CONFIDENTIAL AND NOT TO BE RELEASED WITHOUT AUTHORIZATION
== END 2023-01-10 13:53 | disposition home or self-care (01) ==
LOC: DS 05:50
PROVIDERS: ATTEND Urology
PROC: 0TJB8ZZ Inspection of Bladder, Via Natural or Artificial Opening Endoscopic (ICD-10-PCS; principal; 2023-01-10 07:30)
DX: N13.2 Hydronephrosis with renal and ureteral calculous obstruction (principal); I10 Essential (primary) hypertension
CPT/HCPCS: 74018; 74420; 82365; J0690; J1100; J2001; J2405; J2704; J3010; J7121; Q9967

== ENCOUNTER 2023-01-14 14:28 | Emergency (ER) | payer MEDICARE, OTHER ==
[~2023-01-14] VITALS: Ht 165.1 cm; Wt 62.6 kg
[~2023-01-14 14:28] MED LIST changes: +MULTI VITAMIN1 EACH PO
[2023-01-14] MEDS ORDERED: NITROFURANTOIN100 M1 PO (15:29)
== END 2023-01-14 18:20 | disposition home or self-care (01) ==
LOC: ED 14:28
DX: N13.9 Obstructive and reflux uropathy, unspecified (principal); I10 Essential (primary) hypertension; Z88.0 Allergy status to penicillin; Z88.2 Allergy status to sulfonamides; Z88.1 Allergy status to other antibiotic agents; Z79.899 Other long term (current) drug therapy
CPT/HCPCS: 51702; 51798; 99283-25

== ENCOUNTER 2023-09-24 02:30 | Emergency (ER) | payer MEDICARE, OTHER ==
[~2023-09-24] VITALS: Ht 162.6 cm; Wt 63.5 kg
[~2023-09-24 02:30] MED LIST changes: +L-LYSINE500 M3 PO; +LAMOTRIGINE100 MG PO; +MACROBID 100 M100 MG PO; -MULTI VITAMIN1 EACH PO; +NITROFURANTOIN100 M1 PO; +OXYCODONE HCL5 MG PO; +PRESERVISION A1 EAC3 PO; +TADALAFIL5 M1 PO; +TURMERIC500 M2 PO; +VENTOLIN HFA18 GM
--- OUTSIDE RECORDS SUMMARY | 2023-09-24 02:32 | XMS ---
PreManage Notification: JAM WILKINS Security Accreditation Coordinator Events No recent Security Events currently on file CRITERIA MET - [facility] - 2 Visits in 30 Days CARE PROVIDERS JOSE FRANCISCO [facility] Current PHONE: [phone] [place] has no Care Guidelines for this patient. Mariah VISIT COUNT (12 MO.) 3 [facility] TOTAL 3 NOTE: Visits indicate total known visits. ED/UCC VISIT TRACKING (12 MO.) 09/24/2023 02:31 [facility] TYPE: Emergency COMPLAINT: - ENLARGE TESTICAL 08/26/2023 00:06 [facility] TYPE: Emergency COMPLAINT: - URINE PROBLEM DIAGNOSES: - Allergy status to other antibiotic agents - Allergy status to other drugs, medicaments and biological substances - Allergy status to penicillin - Allergy status to sulfonamides - Chronic kidney disease, unspecified - Hypertensive chronic kidney disease with stage 1 through stage 4 chronic kidney disease, or unspecified chronic kidney disease - Other halfway (current) drug therapy - Retention of urine, unspecified 01/14/2023 14:29 [facility] [place] TYPE: Emergency COMPLAINT: - POST OP PROBLEM DIAGNOSES: - Allergy status to other antibiotic agents - Allergy status to penicillin - Allergy status to sulfonamides - Essential (primary) hypertension - Obstructive and reflux uropathy, unspecified - Other halfway (current) drug therapy INPATIENT VISIT TRACKING (12 MO.) No inpatient visits to display in this time frame [email or web address]
[2023-09-24 03:10] LABS: BASOPHILS 0.6 % (0-2); EOSINOPHILS 3.2 % (0-6); HEMOGLOBIN 13.1 g/dL (12.0-18.0); LYMPHOCYTES 14.7 % (24-44); MCHC 33.6 g/dl (30-36); MCV 89.2 fl (81-99); MONOCYTES 11.8 % (0-12); NEUTROPHILS 69.7 % (39-80); PLATELET COUNT 246 K/uL (140-440); RBC 4.37 M/ul (4.3-5.7); RDW 13.6 (10.5-15.0)
[2023-09-24 03:25] LABS: ALBUMIN 3.4 g/dL (3.4-5.0); ALBUMIN/GLOBULIN RATIO 0.87 (1.1-2.4); ANION GAP 12.8 (7-21); BILIRUBIN, TOTAL 0.6 ng/dL (0.2-1.0); BUN/CREATININE RATIO 22.04 (6.0-28.6); CALCIUM 9.3 mg/dL (8.5-10.1); CREATININE, SERUM 1.27 mg/dL (0.70-1.30); POTASSIUM 3.8 mmol/L (3.5-5.1); PROTEIN, TOTAL 7.3 g/dL (6.4-8.2)
[2023-09-24 04:12] LABS: BILIRUBIN, URINE NEGATIVE (negative); BLOOD/HGB, URINE MODERATE (Negative); KETONE, URINE NEGATIVE (Negative); LEUK ESTERASE, URINE MODERATE (negative); NITRITE, URINE POSITIVE (negative); PH, URINE 5.5 (5-7)
[2023-09-24 04:34] LABS: BACTERIA, URINE 2+ /hpf (negative); EPITHELIAL CELLS, URINE 0 /lpf (0-1+); REFLEX CULTURE, URINE Yes (No); WHITE BLOOD CELLS, URINE >50 /HPF (0-5)
[2023-09-24] MEDS ORDERED: PERCOCET 5-3251 EACH PO (04:35)
[2023-09-24] MEDS ORDERED: CEFDINIR300 MG PO (04:35)
[2023-09-24 05:09] VITALS: BP 164/84
== END 2023-09-24 05:10 | disposition home or self-care (01) ==
LOC: ED 02:30
PROVIDERS: Family Medicine
DX: N45.3 Epididymo-orchitis (principal); I12.9 Hypertensive chronic kidney disease with stage 1 through stage 4 chronic kidney disease, or unspecified chronic kidney disease; N18.9 Chronic kidney disease, unspecified; Z88.0 Allergy status to penicillin; Z88.2 Allergy status to sulfonamides; Z88.8 Allergy status to other drugs, medicaments and biological substances; Z79.899 Other long term (current) drug therapy
CPT/HCPCS: 36415; 76870; 80053; 81001; 85025; 87088; 96374; 99284-25; J0696; J7040

== ENCOUNTER 2024-08-02 10:05 | Day surgery (SDC) | payer MEDICARE, OTHER ==
[2024-08-01 14:04] VITALS: BP 133/74
[~2024-08-02] VITALS: Ht 162.6 cm; Wt 60.5 kg
[~2024-08-02 10:05] MED LIST changes: +BIOTIN10 MG PO; +CALCIUM CITRAT200 MG PO; +CEFDINIR300 MG PO; +COQ1050 MG PO; +GENTAMICIN SULFATE 80 MG in DEXTROSE 5% 100 ML IV SCH; +IBLOOD GLUCOSE TEST STRIP 1 EA TEST VI PRN; +K2 PLUS D3 TAB1 EACH PO; +KRILL OIL500 MG PO; +LACTATED RINGER'S 1,000 ML IV SCH; +LIDOCAINE HCL 1% 5 ML SDV INJ ONE; +MAGNESIUM200 MG PO; +NIACIN50 MG PO; +PERCOCET 5-3251 EACH PO; +VITAMIN B-1100 MG PO; +VITAMIN B-225 MG PO; +VITAMIN C250 MG PO; +VITAMIN E100 UNI2 PO; +VITAMIN K2100 MCG PO; +WILZIN25 MG PO
[2024-08-02 10:22] VITALS: BP 136/97
[2024-08-02] MEDS ORDERED: PRESERVISION A1 EAC3 PO (10:47)
[2024-08-02] MEDS ORDERED: NITROFURANTOIN100 M1 PO (10:48)
[2024-08-02] MEDS ORDERED: HYDROmorphone HCL 1 MG/ML SYR IV PRN (13:30)
[2024-08-02] MEDS ORDERED: LACTATED RINGER'S 1,000 ML IV SCH (13:30)
[2024-08-02] MEDS ORDERED: ondansetron HCL 4 MG/2 ML VIAL IV PRN (13:30)
[2024-08-02] MEDS ORDERED: OXYCODONE/APAP 5/325 TAB PO PRN (13:30)
[2024-08-02] MEDS ORDERED: diphenhydrAMINE HCL 25 MG CAP PO PRN (13:30)
[2024-08-02] MEDS ORDERED: LIDOCAINE HCL 2% 5 ML SDV ONE (13:44)
[2024-08-02] MEDS ORDERED: BUPIVACAINE 0.75% IN DEXTROSE 2 ML AMP ONE (13:44)
[2024-08-02] MEDS ORDERED: propofoL 200 MG/20 ML VIAL ONE ×2 (13:45→16:02)
[2024-08-02] MEDS ORDERED: fentaNYL citrate 100 MCG/2 ML VIAL ONE (13:55)
[2024-08-02] MEDS ORDERED: GENTAMICIN SULFATE 80 MG/2 ML VIAL IV SCH (14:00)
[2024-08-02] MEDS ORDERED: DEXAMETHASONE SOD PHOS 4 MG/ML VIAL ONE (14:17)
[2024-08-02] MEDS ORDERED: GENTAMICIN SULFATE 80 MG in DEXTROSE 5% 100 ML IV SCH ×3 (15:00→20:00)
[2024-08-02] MEDS ORDERED: BETAMETHASONE DIPROPIONATE TOP ONE (16:15)
[2024-08-02] MEDS ORDERED: lamoTRIgine 25 MG TAB PO SCH (17:00)
[2024-08-02 17:31] VITALS: BP 161/75
--- NOTE | 2024-08-02 17:45 | NUR ---
08/02/24 1745 [place],Maribel 1633 PT ARRIVED TO PACU ON RA, PT AWAKE AND TALKING. SPINAL LEVEL L5, PT REPORTS NUMB FEET BUT ABLE TO LIFT LEGS OFF BED. SPINAL EDUCTION GIVEN. HOB INCREASED PER REQUEST. 1647 MD AT BEDSIDE TALKING TO PT. CBI DECREASED, DRAINAGE CLEAR TO VERY LIGHT PINK. PLAN OF CARE DISCUSSED. 1710 PT TRANFERED TO FLOOR AND REPORT GIVEN. PT CONTINUES TO DENY PAIN AND NAUSEA. CBI OUTPUT 850 AND INPUT 800, MED-BAILER OPERATORS SUPERVISOR AWARE. ALL QUESTIONS ANSWERED AND BED PLUGGED IN.
--- NOTE | 2024-08-02 17:57 | NUR ---
Pt arrived to room at about 1658 hours, transferred via bed by PACU RNs. Pt is awake, alert and oriented, has a sense of humor. Pt reports slight amount of pain 0.5 out of 10 in the "crotch" area. Pt is on strict bed rest. Pt report received from RN Maribel López states that Dr. Friedman wants the pt to have 3 doses of the IV abx before he is discharges. First dose scheduled at 2000 hours this evening. IV is patent, with good blood return, straight tubing switched to Primary tubing and, per emar, pt connected to LR at 75ml/hr. Pt provided with chicken broth and beef broth as he declined jello and crackers, stating he is on the "carnivore diet" and only eats meat, no carbs and no sugars. VS obtained, pulse is 41, regular rate, no murmurs, no irregular beats heard, pt is unsure if this is normal for him. Pt oriented to room and call light, side rails up x4, bedside table within reach.
[2024-08-02 18:12] VITALS: BP 173/97
--- NOTE | 2024-08-02 18:49 | NUR ---
Pt provided with a sandwich box and states that he ate only the sandwich without the bread along with a string cheese. He has drank 2 full cups of broth with no c/o nausea and no vomiting. Urine is light pink, CBI slowed to a drip. at bedside.
[2024-08-02 19:26] VITALS: BP 149/68
--- NOTE | 2024-08-02 19:31 | NUR ---
OFFICE PROFESSIONAL OBTAINED A SET OF POST OP VITALS. PT STATES NO NEEDS AT THIS TIME. CALL LIGHT WITHIN REACH AND IN ROOM.
--- NOTE | 2024-08-02 19:37 | NUR ---
REPORT RECIEVED FROM DAY SHIFT RN. PATIENT RESTING IN BED, DENIES FURTHER NEEDS. CALL LIGHT IN REACH.
[2024-08-02 20:52] VITALS: BP 134/74
--- NOTE | 2024-08-02 20:53 | NUR ---
IN ROOM PER REQUEST OF PRIMARY RN TO COLLECT VS, VSS. SANDWICH BOX PROVIDED AND FRESH ICE WATER IN REACH ALONG WITH OTHER BELONGINGS/CALL LIGHT.
[2024-08-02 21:01] VITALS: BP 134/74
--- NOTE | 2024-08-02 21:15 | NUR ---
I&Os OBTAINED AND RECORDED. PATIENT BLADDER IRRIGATION IS SET AT A SLOW DRIP. URINE IN TUBING IS A LIGHT PINK COLOR. PATIENT DENIES PAIN OR DISCOMFORT. TARIQ CATH CARE PROVIDED PER PROTOCOL. IV FLUSHES WNL. IV ABX INFUSING PER ORDER. ASSESSMENT COMPLETE. PATIENT DENIES NEEDS AT THIS TIME. CALL LIGHT IN REACH.
--- NOTE | 2024-08-02 23:00 | NUR ---
pt resting in bed, awake. martinez to gravity drain, color of urine in martinez tubing diluted yellow/nearly clear. pt denies additional needs or concerns.
--- NOTE | 2024-08-02 23:13 | NUR ---
PATIENT RESTING IN BED AWAKE. DENIES NEEDS AT THIS TIME. CALL LIGHT IN REACH.
--- NOTE | 2024-08-03 00:05 | NUR ---
PATIENT URINE OUTPUT IN TARIQ CATH TUBING IS LIGHT YELLOW TO NEARLY CLEAR AT THIS TIME. NO BLOT CLOTS NOTED.
--- NOTE | 2024-08-03 00:52 | NUR ---
WATER HEARD SPILLING IN ROOM. THIS RN AND HOOP CUTTER TO ROOM. BLADDER IRRIGATION TUBING ON THE FLOOR, AND NS WAS SPILLING OUT OF BAG ON TO FLOOR. PATIENT STATES "I WAS TRYING TO ADJUST MY BED TO SLEEP AND I DONT KNOW WHAT HAPPENED". PATIENT STATES HE DID NOT PULL ON HIS HIS TARIQ CATHETER TUBING BUT THE URINE IN THE TUBING IS NOW A MORE PINK/RED COLOR. STAT LOCK IN PLACE. BLADDER IRRIGATION STOPPED AT THIS TIME. PATIENT HAS NO FURTHER NEEDS. CALL LIGHT IN REACH.
[2024-08-03 00:54] VITALS: BP 123/77
[2024-08-03 01:01] VITALS: BP 123/77
--- NOTE | 2024-08-03 01:23 | NUR ---
URINE IN TARIQ CATHETER TUBING IS A YELLOW COLOR AT THIS TIME. PATIENT DENIES NEEDS OR PAIN AT THIS TIME. CALL LIGHT IN REACH.
--- NOTE | 2024-08-03 03:31 | NUR ---
PATIENT RESTING IN BED ON PHONE. NO NEEDS AT THIS TIME. CALL LIGHT IN REACH.
--- NOTE | 2024-08-03 03:46 | NUR ---
BLADDER IRRIGATED WITH 45mL STERILE SALINE FOR IRRIGATION, USING A STERILE PROCEDURE. LIGHT YELLOW URINE NOTED IN TARIQ CATHETER TUBING. NO CLOTS PRESENT. PATIENT ZAHRA WELL. NO FURTHER NEEDS. CALL LIGHT IN REACH.
--- NOTE | 2024-08-03 04:11 | NUR ---
iv pump alarming, new bag iv fluids infusing as directed, iv site wnl. bed alarm along with bilateral scd's remain on, call light in reach.
[2024-08-03 05:32] VITALS: BP 119/71
--- NOTE | 2024-08-03 06:30 | NUR ---
SCHEDULED IV ABX INFUSING PER ORDER. PATIENT BLADDER IRRIGATED WITH 60mL NS IRRIGATION FLUID USING STERILE PROCEDURE. URINE IN TARIQ TUBING IS A LIIGHT YELLOW COLOR AT THIS TIME. PATIENT HAS NO NEEDS AT THIS TIME. CALL LIGHT IN REACH.
--- NOTE | 2024-08-03 06:58 | NUR ---
UR CLINICAL REVIEW: 2 MN FOR [facility] SHORT STAY CRITERIA MEDICARE EXTENDED STAY 08/02/24 @ 1320 ORDER MATCHES REG NO AUTH REQUIRED PER MEDICARE GUIDELINES DISCHARGE TO HOME TODAY
--- NOTE | 2024-08-03 07:19 | NUR ---
Pt report received from GARCIA Pete. Pt is resting, supine in bed, breathing is regular, even, and non-labored. Call light in reach.
--- NOTE | 2024-08-03 08:13 | NUR ---
PATIENT IN BED AT THIS TIME. CALL LIGHT WITHIN REACH, NO FURTHER NEEDS AT THIS TIME.
--- NOTE | 2024-08-03 08:15 | NUR ---
Spoke with pt. He lives in split level home with his . He has 8 steps to get into his home. He denies any issues getting into the home. He uses a CPAP at night, but denies use of any other DME. He plans on dc to home today. His will pick him up. Pt denies financial issues. Home when discharged by Dr. Friedman.
--- NOTE | 2024-08-03 08:48 | NUR ---
MED REC COMPLETE
[2024-08-03] MEDS ORDERED: lamoTRIgine 100 MG TAB PO SCH (09:00)
[2024-08-03] MEDS ORDERED: LEVOFLOXACIN500 MG PO (09:53)
[2024-08-03] MEDS ORDERED: OXYCODONE HCL5 MG PO (09:53)
[2024-08-03 10:58] VITALS: BP 121/63
--- NOTE | 2024-08-03 11:02 | NUR ---
PATIENT IN BED AT THIS TIME. VITALS AND I&O'S CHARTED. CALL LIGHT WITHIN REACH, NO FURTHER NEEDS AT THIS TIME.
--- NOTE | 2024-08-03 11:16 | NUR ---
PC to Dr. Friedman' office, spoke with Dr. Friedman who clarified she would like the pt to receive the 2pm dose of gentamicin, then he can discharge. She also requested we are sure to tell the pt he must take his PO levaquin as prescribed as she knows he was worried about taking it and has already discussed his concerns with him.
[2024-08-03 13:32] VITALS: BP 106/56
--- NOTE | 2024-08-03 13:51 | NUR ---
PATIENT IN BED AT THIS TIME. VITALS AND I&O'S CHARTED. CALL LIGHT WITHIN REACH, NO FURTHER NEEDS AT THIS TIME.
--- NOTE | 2024-08-03 14:03 | NUR ---
PC to Dr. Friedman to clarify whether or not the pt may use a leg bag at home with his catheter. Advised by the staff who answered the phone that Dr. Friedman does not want the pt to be provided with a leg bag. Advised the pt of this decision. Pt is calling Dr. Friedman' office himself at this time.
--- NOTE | 2024-08-03 15:28 | NUR ---
ASSISTED PT INTO HIS CLOTHES, DEMONSTRATING HOW TO MANEUVER THE CATH BAG TO AVOID PULLING ON THE TUBING. PT IS VERY FRUSTRATED ABOUT NOT BEING ALLOWED TO USE A LEG BAG. DISCUSSED HIS FRUSTRATIONS AND ENCOURAGED HIM TO CONTINUE TO EXPRESS HIS CONCERNS AND ASK QUESTIONS.
[2024-08-07 14:12] LABS: CALCULI MASS 4024 mg (())
--- NOTE | 2024-08-09 14:33 | PATH ---
[facility] [address], [place] [address] Signed SPECIMEN(S): A PROSTATE CHIPS SPECIMEN SOURCE: A. PROSTATE CHIPS CLINICAL HISTORY: Urethral stone, hyperplasia prostate. FINAL PATHOLOGIC DIAGNOSIS: Prostate chips, TUR: - Benign prostatic glandular tissue with prominent acute and chronic stromal and glandular inflammation and stromal calcifications. - Benign urothelium with focal squamous metaplasia. JVR:clv MICROSCOPIC EXAMINATION: Histologic sections of all submitted blocks are examined by light microscopy. These findings, together with the gross examination, support the pathologic diagnosis. GROSS DESCRIPTION: The specimen, labeled and designated "Marcellus Wilkins, " and designated on the requisition "prostate chips," is received in formalin is a 9 g, 5.6 x 3.7 x 1.4 cm aggregate of pink-martines to abdi rubbery soft tissue. The specimen is entirely submitted in (A1-A6). FB (under the direct supervision of a pathologist) The Gross Description was prepared using a voice recognition system. The report was reviewed for accuracy; however, sound-alike word errors, addition and/or deletions may occur. If there is any question about this report, please contact Client Services. PERFORMING LABORATORY: Technical component was performed by [facility], [address] [place] [id number] (CLIA# [id number]). Professional interpretation was performed by [facility] - [facility], [address] [place] [id number] (CLIA#: [id number]). Diagnostician: Gerald Parekh MD Pathologist Electronically Signed 08/09/2024 PATIENT NAME: JAM WILKINS PATHOLOGY DATE OF : 44 REPORT #: [id number] PHYSICIAN: [facility] PCP: PRACHI FELTON MD REPORT IS CONFIDENTIAL AND NOT TO BE RELEASED WITHOUT AUTHORIZATION [address] [address] Signed Copies: ~ PATIENT NAME: JAM WILKINS PATHOLOGY DATE OF : 44 REPORT #: [id number] PHYSICIAN: [facility]IKEL PATHOLOGY PCP: PRACHI FELTON MD REPORT IS CONFIDENTIAL AND NOT TO BE RELEASED WITHOUT AUTHORIZATION
== END 2024-08-03 15:29 | disposition home or self-care (01) ==
LOC: DS 10:05 → MS 17:07 → DS 08-03 15:29
PROVIDERS: ATTEND Urology
PROC: 0VT08ZZ Resection of Prostate, Via Natural or Artificial Opening Endoscopic (ICD-10-PCS; 2024-08-02)
PROC: 0TCB8ZZ Extirpation of Matter from Bladder, Via Natural or Artificial Opening Endoscopic (ICD-10-PCS; principal; 2024-08-02 12:00)
PROC: 0TCD8ZZ Extirpation of Matter from Urethra, Via Natural or Artificial Opening Endoscopic (ICD-10-PCS; 2024-08-02 12:00)
DX: N40.1 Benign prostatic hyperplasia with lower urinary tract symptoms (principal); R33.8 Other retention of urine; N21.0 Calculus in bladder; N32.0 Bladder-neck obstruction; N21.1 Calculus in urethra; N41.0 Acute prostatitis; N41.1 Chronic prostatitis; N42.89 Other specified disorders of prostate; I10 Essential (primary) hypertension; Z88.2 Allergy status to sulfonamides; Z88.8 Allergy status to other drugs, medicaments and biological substances; Z79.899 Other long term (current) drug therapy
CPT/HCPCS: 00914; 82365; 88305; J1100; J1580; J2001; J2704; J3010; J7121

== ENCOUNTER 2024-08-07 23:14 | Emergency (ER) | payer MEDICARE, OTHER ==
[~2024-08-07] VITALS: Ht 162.6 cm; Wt 59.2 kg
[~2024-08-07 23:14] MED LIST changes: -GENTAMICIN SULFATE 80 MG in DEXTROSE 5% 100 ML IV SCH; -IBLOOD GLUCOSE TEST STRIP 1 EA TEST VI PRN; -LACTATED RINGER'S 1,000 ML IV SCH; +LEVOFLOXACIN500 MG PO; -LIDOCAINE HCL 1% 5 ML SDV INJ ONE
[2024-08-07] MEDS ORDERED: OXYBUTYNIN CHLOR5 M1 PO (23:29)
[2024-08-07] MEDS ORDERED: ondansetron HCL 4 MG/2 ML VIAL IV ONE (23:45)
[2024-08-07] MEDS ORDERED: FAMOTIDINE 20 MG/ 2 ML VIAL IV ONE (23:45)
[2024-08-07] MEDS ORDERED: ACETAMINOPHEN 500 MG TAB PO ONE (23:45)
[2024-08-07] MEDS ORDERED: SODIUM CHLORIDE 0.9% 500 ML IV ONE (23:45)
[2024-08-07 23:51] LABS: BASOPHILS 0.8 % (0-2); EOSINOPHILS 4.2 % (0-6); HEMATOCRIT 39.7 % (35.0-50.0); HEMOGLOBIN 13.1 g/dL (12.0-18.0); LYMPHOCYTES 23.8 % (24-44); MCH 30.5 (27-36); MCHC 32.9 g/dl (30-36); MCV 92.9 fl (81-99); MONOCYTES 7.5 % (0-12); NEUTROPHILS 63.7 % (39-80); PLATELET COUNT 252 K/uL (140-440); RBC 4.28 M/ul (4.3-5.7); RDW 13.6 (10.5-15.0)
[2024-08-08 00:01] LABS: ALBUMIN 3.4 g/dL (3.4-5.0); ALBUMIN/GLOBULIN RATIO 0.85 (1.1-2.4); ANION GAP 15.3 (7-21); BILIRUBIN, TOTAL 0.5 ng/dL (0.2-1.0); BUN/CREATININE RATIO 24.81 (6.0-28.6); CALCIUM 9.3 mg/dL (8.5-10.1); CREATININE, SERUM 1.33 mg/dL (0.70-1.30); MAGNESIUM 1.9 mg/dL (1.8-2.4); POTASSIUM 3.3 mmol/L (3.5-5.1); PROTEIN, TOTAL 7.4 g/dL (6.4-8.2)
[2024-08-08 00:56] LABS: BILIRUBIN, URINE NEGATIVE (negative); BLOOD/HGB, URINE MODERATE (Negative); KETONE, URINE TRACE (Negative); LEUK ESTERASE, URINE NEGATIVE (negative); NITRITE, URINE NEGATIVE (negative)
[2024-08-08 01:01] LABS: BACTERIA, URINE RARE /hpf (negative); CASTS, URINE NONE SEEN \\lpf; COLLECTION TYPE, URINE CLEAN CATCH; CRYSTALS, URINE NONE SEEN (0-1+); EPITHELIAL CELLS, URINE SQUAMOUS 1+ /lpf (0-1+); RED BLOOD CELLS, URINE 21-40 /hpf (0-5); REFLEX CULTURE, URINE Yes (No); WHITE BLOOD CELLS, URINE >50 /HPF (0-5)
[2024-08-08] MEDS ORDERED: LACTATED RINGER'S 500 ML IV ONE (01:30)
[2024-08-08] MEDS ORDERED: POTASSIUM CHLORIDE 10 MEQ TABCR PO ONE (01:30)
[2024-08-08 03:34] VITALS: BP 143/76
== END 2024-08-08 03:34 | disposition home or self-care (01) ==
LOC: ED 23:14
PROVIDERS: Internal Medicine
DX: A05.9 Bacterial foodborne intoxication, unspecified (principal); E86.0 Dehydration; I10 Essential (primary) hypertension; Z87.11 Personal history of peptic ulcer disease; Z85.46 Personal history of malignant neoplasm of prostate; Z90.79 Acquired absence of other genital organ(s); Z88.0 Allergy status to penicillin; Z79.899 Other long term (current) drug therapy
CPT/HCPCS: 36415; 80053; 81001; 83735; 83880; 84484; 85025; 87088; 96374; 96375; 99284-25; A9270; J2405; J7040; J7121

== ENCOUNTER 2025-03-01 09:20 | Emergency (ER) | payer MEDICARE, OTHER ==
[~2025-03-01] VITALS: Ht 162.6 cm; Wt 61.5 kg
[~2025-03-01 09:20] MED LIST changes: +B-1100 MG PO; +CEPHALEXIN500 MG PO; +GALZIN25 MG PO; +KRILL OIL PO; -KRILL OIL500 MG PO; -MAGNESIUM200 MG PO; +MAGNESIUM250 M1 PO; +OXYBUTYNIN CHLO10 MG PO; +PRESERVISION A1 EAC7 PO; +TURMERIC500 M3 PO
[2025-03-01 10:07] LABS: BASOPHILS 0.7 % (0-2); EOSINOPHILS 0.9 % (0-6); HEMATOCRIT 40.1 % (35.0-50.0); HEMOGLOBIN 13.4 g/dL (12.0-18.0); LYMPHOCYTES 10.7 % (24-44); MCH 29.2 (27-36); MCHC 33.5 g/dl (30-36); MCV 87.2 fl (81-99); MONOCYTES 6.2 % (0-12); NEUTROPHILS 81.5 % (39-80); PLATELET COUNT 274 K/uL (140-440); RDW 14.7 (10.5-15.0)
[2025-03-01 10:15] LABS: ALBUMIN 3.5 g/dL (3.4-5.0); ALBUMIN/GLOBULIN RATIO 0.85 (1.1-2.4); ANION GAP 13.9 (7-21); BILIRUBIN, TOTAL 0.5 mg/dL (0.2-1.0); BUN/CREATININE RATIO 20.49 (6.0-28.6); CALCIUM 9.4 mg/dL (8.5-10.1); CREATININE, SERUM 1.22 mg/dL (0.70-1.30); POTASSIUM 3.9 mmol/L (3.5-5.1); PROTEIN, TOTAL 7.6 g/dL (6.4-8.2)
[2025-03-01] MEDS ORDERED: ondansetron HCL 4 MG TAB PO ONE (10:15)
[2025-03-01] MEDS ORDERED: MORPHINE SULFATE 4 MG/ML VIAL IV ONE ×2 (10:15)
[2025-03-01] MEDS ORDERED: SODIUM CHLORIDE 0.9% 1,000 ML IV ONE (10:15)
[2025-03-01 10:24] LABS: BILIRUBIN, URINE NEGATIVE (negative); BLOOD/HGB, URINE LARGE (Negative); KETONE, URINE SMALL (Negative); LEUK ESTERASE, URINE TRACE (negative); NITRITE, URINE NEGATIVE (negative)
[2025-03-01 10:34] LABS: RED BLOOD CELLS, URINE >50 /hpf (0-5)
[2025-03-01 10:35] LABS: BACTERIA, URINE RARE /hpf (negative); CASTS, URINE NONE SEEN \\lpf; COLLECTION TYPE, URINE CLEAN CATCH; CRYSTALS, URINE NONE SEEN (0-1+); EPITHELIAL CELLS, URINE SQUAMOUS 1+ /lpf (0-1+)
[2025-03-01 10:36] LABS: REFLEX CULTURE, URINE Yes (No)
[2025-03-01] MEDS ORDERED: LIDOCAINE 2% VISCOUS 6 ML SYR TOP ONE (13:00)
[2025-03-01] MEDS ORDERED: CIPRO500 MG PO (13:04)
[2025-03-01] MEDS ORDERED: CIPROFLOXACIN 500 MG TAB PO ONE (13:15)
[2025-03-01 14:01] VITALS: BP 154/79
== END 2025-03-01 14:01 | disposition home or self-care (01) ==
LOC: ED 09:20
PROVIDERS: Emergency Medicine
DX: N13.30 Unspecified hydronephrosis (principal); I12.9 Hypertensive chronic kidney disease with stage 1 through stage 4 chronic kidney disease, or unspecified chronic kidney disease; N18.9 Chronic kidney disease, unspecified; Z88.0 Allergy status to penicillin; Z88.2 Allergy status to sulfonamides; Z88.1 Allergy status to other antibiotic agents; Z88.8 Allergy status to other drugs, medicaments and biological substances; Z79.899 Other long term (current) drug therapy
CPT/HCPCS: 36415; 51702; 74176; 80053; 81001; 85025; 87077; 87088; 87186; 99284-25; A4311; A9270; J2270; J7030

== ENCOUNTER 2025-03-23 09:40 | Emergency (ER) | payer OTHER, MEDICARE ==
[~2025-03-23] VITALS: Ht 162.6 cm; Wt 68.3 kg
[~2025-03-23 09:40] MED LIST changes: +CIPRO500 MG PO
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
[2025-03-23 10:17] VITALS: BP 128/107
== END 2025-03-23 10:23 | disposition home or self-care (01) ==
LOC: ED 09:40
DX: S33.5XXA Sprain of ligaments of lumbar spine, 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 (principal); I10 Essential (primary) hypertension; V48.5XXA Car driver injured in 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 traffic accident, 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; Z88.0 Allergy status to penicillin; Z88.2 Allergy status to sulfonamides; Z88.8 Allergy status to other drugs, medicaments and biological substances; Z88.1 Allergy status to other antibiotic agents; Z79.899 Other long term (current) drug therapy
CPT/HCPCS: 99283

== ENCOUNTER 2025-03-27 14:20 | Emergency (ER) | payer MEDICARE, OTHER ==
[~2025-03-27] VITALS: Ht 162.6 cm; Wt 55.0 kg
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
[2025-03-27] MEDS ORDERED: OXYBUTYNIN CHLO10 MG PO (15:02)
[2025-03-27] MEDS ORDERED: LIDOCAINE 2% VISCOUS 6 ML SYR TOP ONE (15:15)
[2025-03-27 15:53] LABS: BILIRUBIN, URINE NEGATIVE (negative); BLOOD/HGB, URINE LARGE (Negative); KETONE, URINE SMALL (Negative); LEUK ESTERASE, URINE MODERATE (negative); NITRITE, URINE NEGATIVE (negative)
[2025-03-27 16:00] LABS: CRYSTALS, URINE NONE SEEN (0-1+); EPITHELIAL CELLS, URINE 0 /lpf (0-1+); WHITE BLOOD CELLS, URINE >50 /HPF (0-5)
[2025-03-27 16:01] LABS: BACTERIA, URINE 1+ /hpf (negative); CASTS, URINE NONE SEEN \\lpf; COLLECTION TYPE, URINE CATH; REFLEX CULTURE, URINE Yes (No)
[2025-03-27 16:40] VITALS: BP 125/68
== END 2025-03-27 16:41 | disposition home or self-care (01) ==
LOC: ED 14:20
PROVIDERS: Emergency Medicine
DX: M43.8X4 Other specified deforming dorsopathies, thoracic region (principal); I10 Essential (primary) hypertension; Z79.899 Other long term (current) drug therapy; Z88.0 Allergy status to penicillin; Z88.2 Allergy status to sulfonamides; Z88.1 Allergy status to other antibiotic agents; Z88.8 Allergy status to other drugs, medicaments and biological substances
CPT/HCPCS: 51702; 81001; 99283; A4311

== ENCOUNTER 2025-04-05 14:51 | Emergency (ER) | payer MEDICARE, OTHER ==
[~2025-04-05] VITALS: Ht 162.6 cm; Wt 59.0 kg
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
[2025-04-05] MEDS ORDERED: LIDOCAINE 2% VISCOUS 6 ML SYR TOP ONE (19:30)
[2025-04-05 20:49] LABS: BILIRUBIN, URINE NEGATIVE (negative); BLOOD/HGB, URINE LARGE (Negative); KETONE, URINE SMALL (Negative); LEUK ESTERASE, URINE SMALL (negative); NITRITE, URINE NEGATIVE (negative)
[2025-04-05 20:58] LABS: BACTERIA, URINE 2+ /hpf (negative); CASTS, URINE NONE SEEN \\lpf; COLLECTION TYPE, URINE CATH; CRYSTALS, URINE NONE SEEN (0-1+); EPITHELIAL CELLS, URINE 0 /lpf (0-1+); RED BLOOD CELLS, URINE 0-1 /hpf (0-5); REFLEX CULTURE, URINE Yes (No); WHITE BLOOD CELLS, URINE >50 /HPF (0-5)
[2025-04-05 21:55] VITALS: BP 145/76
== END 2025-04-05 21:56 | disposition home or self-care (01) ==
LOC: ED 14:51
PROVIDERS: Internal Medicine
DX: Z46.6 Encounter for fitting and adjustment of urinary device (principal); I12.9 Hypertensive chronic kidney disease with stage 1 through stage 4 chronic kidney disease, or unspecified chronic kidney disease; N18.9 Chronic kidney disease, unspecified; Z88.0 Allergy status to penicillin; Z88.2 Allergy status to sulfonamides; Z88.8 Allergy status to other drugs, medicaments and biological substances; Z88.1 Allergy status to other antibiotic agents; Z79.899 Other long term (current) drug therapy
CPT/HCPCS: 51702; 81001; 87088; 99283; A4311

== ENCOUNTER 2025-04-10 18:52 | Emergency (ER) | payer MEDICARE, OTHER ==
[~2025-04-10] VITALS: Ht 162.6 cm; Wt 57.0 kg
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
[2025-04-10 21:39] VITALS: BP 166/87
== END 2025-04-10 21:31 | disposition home or self-care (01) ==
LOC: ED 18:52
DX: T83.091A Other mechanical complication of indwelling urethral catheter, 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 (principal); I12.9 Hypertensive chronic kidney disease with stage 1 through stage 4 chronic kidney disease, or unspecified chronic kidney disease; N18.9 Chronic kidney disease, unspecified; Z79.899 Other long term (current) drug therapy; Z88.0 Allergy status to penicillin; Z88.2 Allergy status to sulfonamides; Z88.1 Allergy status to other antibiotic agents
CPT/HCPCS: 99282

== ENCOUNTER 2025-04-19 15:40 | Emergency (ER) | payer MEDICARE, OTHER ==
[~2025-04-19] VITALS: Ht 162.6 cm; Wt 60.5 kg
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
[2025-04-19] MEDS ORDERED: LIDOCAINE 2% VISCOUS 6 ML SYR TOP ONE (17:30)
[2025-04-19 17:48] LABS: BILIRUBIN, URINE NEGATIVE (negative); BLOOD/HGB, URINE LARGE (Negative); KETONE, URINE NEGATIVE (Negative); LEUK ESTERASE, URINE MODERATE (negative); NITRITE, URINE NEGATIVE (negative); PH, URINE 5.5 (5-7)
[2025-04-19 17:55] LABS: BACTERIA, URINE RARE /hpf (negative); CASTS, URINE NONE SEEN \\lpf; CRYSTALS, URINE NONE SEEN (0-1+); EPITHELIAL CELLS, URINE SQUAMOUS 1+ /lpf (0-1+); RED BLOOD CELLS, URINE >50 /hpf (0-5); WHITE BLOOD CELLS, URINE >50 /HPF (0-5)
[2025-04-19 17:56] LABS: COLLECTION TYPE, URINE CATH; REFLEX CULTURE, URINE Yes (No)
[2025-04-19 18:39] VITALS: BP 158/91
== END 2025-04-19 18:40 | disposition home or self-care (01) ==
LOC: ED 15:40
PROVIDERS: Emergency Medicine
DX: T83.021A Displacement of indwelling urethral catheter, 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 (principal); I10 Essential (primary) hypertension; N18.9 Chronic kidney disease, unspecified; Z88.2 Allergy status to sulfonamides; Z88.0 Allergy status to penicillin; Z88.1 Allergy status to other antibiotic agents; Z79.899 Other long term (current) drug therapy
CPT/HCPCS: 51702; 81001; 87088; 99283

== ENCOUNTER 2025-05-08 16:48 | Emergency (ER) | payer MEDICARE, OTHER ==
[~2025-05-08] VITALS: Ht 162.6 cm; Wt 59.0 kg
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
[2025-05-08] MEDS ORDERED: ACETAMINOPHEN 500 MG TAB PO ONE (19:00)
[2025-05-08] MEDS ORDERED: LIDOCAINE 2% VISCOUS 6 ML SYR TOP ONE (19:00)
[2025-05-08 19:43] LABS: BASOPHILS 0.5 % (0.2-1.2); BILIRUBIN, URINE NEGATIVE (negative); BLOOD/HGB, URINE LARGE (Negative); EOSINOPHILS 2.1 % (0.8-7.0); HEMATOCRIT 37.4 % (40.1-51.0); HEMOGLOBIN 11.9 g/dL (13.7-17.5); KETONE, URINE NEGATIVE (Negative); LEUK ESTERASE, URINE MODERATE (negative); LYMPHOCYTES 18.7 % (21.8-53.1); MCH 28.5 PG (25.7-32.2); MCHC 31.8 g/dL (32.3-36.5); MCV 89.5 fL (79.0-92.2); MONOCYTES 10.5 % (5.3-12.2); NEUTROPHILS 67.7 % (34.0-67.9); NITRITE, URINE NEGATIVE (negative); PLATELET COUNT 260 K/uL (163-337); RBC 4.18 M/uL (4.63-6.08)
[2025-05-08 19:51] LABS: RED BLOOD CELLS, URINE >50 /hpf (0-5); WHITE BLOOD CELLS, URINE >50 /HPF (0-5)
[2025-05-08 19:52] LABS: BACTERIA, URINE 3+ /hpf (negative); CASTS, URINE NONE SEEN \\lpf; COLLECTION TYPE, URINE CLEAN CATCH; CRYSTALS, URINE CALCIUM OXALATE 1+ (0-1+); EPITHELIAL CELLS, URINE SQUAMOUS 1+ /lpf (0-1+); REFLEX CULTURE, URINE Yes (No)
[2025-05-08 19:59] LABS: ALBUMIN 2.9 g/dL (3.4-5.0); ALBUMIN/GLOBULIN RATIO 0.66 (1.1-2.4); ANION GAP 11.8 (7-21); BILIRUBIN, TOTAL 0.6 mg/dL (0.2-1.0); BUN/CREATININE RATIO 19.82 (6.0-28.6); CALCIUM 9.5 mg/dL (8.5-10.1); CREATININE, SERUM 1.16 mg/dL (0.70-1.30); POTASSIUM 3.8 mmol/L (3.5-5.1); PROTEIN, TOTAL 7.3 g/dL (6.4-8.2)
[2025-05-08 22:05] VITALS: BP 137/74
== END 2025-05-08 22:30 | disposition home or self-care (01) ==
LOC: ED 16:48
PROVIDERS: Emergency Medicine
DX: R10.2 Pelvic and perineal pain (principal); R31.9 Hematuria, unspecified; N39.9 Disorder of urinary system, unspecified; I12.9 Hypertensive chronic kidney disease with stage 1 through stage 4 chronic kidney disease, or unspecified chronic kidney disease; N18.9 Chronic kidney disease, unspecified; Z79.899 Other long term (current) drug therapy; Z88.0 Allergy status to penicillin; Z88.2 Allergy status to sulfonamides; Z88.8 Allergy status to other drugs, medicaments and biological substances; Z88.1 Allergy status to other antibiotic agents
CPT/HCPCS: 36415; 51702; 74177; 80053; 81001; 83690; 85025; 87088; 99284-25; A4311; A9270; Q9967

== ENCOUNTER 2025-06-04 22:59 | Emergency (ER) | payer MEDICARE, OTHER ==
[~2025-06-04] VITALS: Ht 162.6 cm; Wt 59.0 kg
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
[2025-06-04] MEDS ORDERED: LIDOCAINE 2% VISCOUS 6 ML SYR TOP ONE (23:30)
[2025-06-05 00:49] VITALS: BP 137/79
== END 2025-06-05 00:49 | disposition home or self-care (01) ==
LOC: ED 22:59
DX: T83.091A Other mechanical complication of indwelling urethral catheter, 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 (principal); I12.9 Hypertensive chronic kidney disease with stage 1 through stage 4 chronic kidney disease, or unspecified chronic kidney disease; N18.9 Chronic kidney disease, unspecified; Z88.0 Allergy status to penicillin; Z88.2 Allergy status to sulfonamides; Z79.899 Other long term (current) drug therapy
CPT/HCPCS: 51702; 99283; A4311

== ENCOUNTER 2025-06-24 15:30 | Emergency (ER) | payer MEDICARE, OTHER ==
[~2025-06-24] VITALS: Ht 162.6 cm; Wt 61.0 kg
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
[2025-06-24] MEDS ORDERED: AMOXICILLIN500 MG PO (15:52)
[2025-06-24] MEDS ORDERED: LIDOCAINE 2% VISCOUS 6 ML SYR TOP ONE (16:30)
[2025-06-24 16:59] LABS: BLOOD/HGB, URINE LARGE (Negative); KETONE, URINE NEGATIVE (Negative); LEUK ESTERASE, URINE TRACE (negative); NITRITE, URINE NEGATIVE (negative)
[2025-06-24 17:06] LABS: BACTERIA, URINE NONE SEEN /hpf (negative); CASTS, URINE NONE SEEN \\lpf; CRYSTALS, URINE NONE SEEN (0-1+); EPITHELIAL CELLS, URINE 0 /lpf (0-1+); REFLEX CULTURE, URINE No (No)
[2025-06-24 17:17] VITALS: BP 154/89
== END 2025-06-24 17:17 | disposition home or self-care (01) ==
LOC: ED 15:30
PROVIDERS: Emergency Medicine
DX: Z43.6 Encounter for attention to other artificial openings of urinary tract (principal); I12.9 Hypertensive chronic kidney disease with stage 1 through stage 4 chronic kidney disease, or unspecified chronic kidney disease; N18.9 Chronic kidney disease, unspecified; Z87.442 Personal history of urinary calculi; Z88.0 Allergy status to penicillin; Z88.2 Allergy status to sulfonamides; Z88.1 Allergy status to other antibiotic agents; Z79.899 Other long term (current) drug therapy
CPT/HCPCS: 51702; 81001; 99283; A4311

== ENCOUNTER 2025-07-15 01:59 | Emergency (ER) | payer MEDICARE, OTHER ==
[~2025-07-15] VITALS: Ht 162.6 cm; Wt 61.0 kg
[~2025-07-15 01:59] MED LIST changes: +AMOXICILLIN500 MG PO; +LISINOPRIL10 MG PO
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
[2025-07-15 02:31] LABS: BASOPHILS 0.8 % (0.2-1.2); EOSINOPHILS 1.4 % (0.8-7.0); LYMPHOCYTES 14.1 % (21.8-53.1); MCH 28.4 PG (25.7-32.2); MCHC 32.3 g/dL (32.3-36.5); MCV 88.1 fL (79.0-92.2); MONOCYTES 12.0 % (5.3-12.2); NEUTROPHILS 71.4 % (34.0-67.9); RBC 4.64 M/uL (4.63-6.08)
[2025-07-15 02:44] LABS: BLOOD/HGB, URINE LARGE (Negative); KETONE, URINE NEGATIVE (Negative); LEUK ESTERASE, URINE LARGE (negative); NITRITE, URINE NEGATIVE (negative)
[2025-07-15 02:54] LABS: AST (SGOT) 41.0 U/L (15-37); GLOMERULAR FILTRATION RATE,EST 86.0 mL/min (>60); PROTEIN, TOTAL 7.6 g/dL (6.4-8.2); UREA NITROGEN 37.0 mg/dL (7-18)
[2025-07-15 03:08] LABS: BACTERIA, URINE 1+ /hpf (negative); CASTS, URINE NONE SEEN \\lpf; CRYSTALS, URINE NONE SEEN (0-1+); EPITHELIAL CELLS, URINE 0 /lpf (0-1+); REFLEX CULTURE, URINE Yes (No)
[2025-07-15 03:10] LABS: ALT (SGPT) 54.0 U/L (14-59)
[2025-07-15] MEDS ORDERED: CEPHALEXIN500 M1 PO (03:24)
[2025-07-15] MEDS ORDERED: LIDOCAINE 2% VISCOUS 6 ML SYR TOP ONE (03:30)
[2025-07-15 03:42] VITALS: BP 143/78
== END 2025-07-15 03:44 | disposition home or self-care (01) ==
LOC: ED 01:59
PROVIDERS: Internal Medicine
DX: N39.0 Urinary tract infection, site not specified (principal); I12.9 Hypertensive chronic kidney disease with stage 1 through stage 4 chronic kidney disease, or unspecified chronic kidney disease; N18.9 Chronic kidney disease, unspecified; Z88.0 Allergy status to penicillin; Z88.2 Allergy status to sulfonamides; Z88.1 Allergy status to other antibiotic agents; Z88.8 Allergy status to other drugs, medicaments and biological substances; Z79.899 Other long term (current) drug therapy
CPT/HCPCS: 36415; 51702; 80053; 81001; 85025; 87088; 99284-25; A4311; J0696

== ENCOUNTER 2025-07-20 00:06 | Emergency (ER) | payer MEDICARE, OTHER ==
[~2025-07-20] VITALS: Ht 162.6 cm; Wt 60.2 kg
[~2025-07-20 00:06] MED LIST changes: +CEPHALEXIN500 M1 PO
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
[2025-07-20 01:53] VITALS: BP 176/81
== END 2025-07-20 01:54 | disposition home or self-care (01) ==
LOC: ED 00:06
DX: T83.091A Other mechanical complication of indwelling urethral catheter, 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 (principal); I12.9 Hypertensive chronic kidney disease with stage 1 through stage 4 chronic kidney disease, or unspecified chronic kidney disease; N18.9 Chronic kidney disease, unspecified; Z87.442 Personal history of urinary calculi; Z85.46 Personal history of malignant neoplasm of prostate; Z88.0 Allergy status to penicillin; Z88.2 Allergy status to sulfonamides; Z88.8 Allergy status to other drugs, medicaments and biological substances; Z88.1 Allergy status to other antibiotic agents; Z79.899 Other long term (current) drug therapy
CPT/HCPCS: 99283

== ENCOUNTER 2025-07-21 21:14 | Emergency (ER) | payer OTHER, MEDICARE ==
[~2025-07-21] VITALS: Ht 162.6 cm; Wt 60.2 kg
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
[2025-07-21] MEDS ORDERED: LIDOCAINE 2% VISCOUS 6 ML SYR TOP ONE (22:30)
[2025-07-21 22:47] VITALS: BP 134/78
== END 2025-07-21 22:53 | disposition home or self-care (01) ==
LOC: ED 21:14
DX: T83.011A Breakdown (mechanical) of indwelling urethral catheter, 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 (principal); I12.9 Hypertensive chronic kidney disease with stage 1 through stage 4 chronic kidney disease, or unspecified chronic kidney disease; N18.9 Chronic kidney disease, unspecified; Z85.46 Personal history of malignant neoplasm of prostate; Z88.0 Allergy status to penicillin; Z88.2 Allergy status to sulfonamides; Z88.1 Allergy status to other antibiotic agents; Z88.8 Allergy status to other drugs, medicaments and biological substances; Z79.899 Other long term (current) drug therapy
CPT/HCPCS: 51702; 99283-25; A4311

== ENCOUNTER 2025-08-02 14:30 | Emergency (ER) | payer MEDICARE, OTHER ==
[~2025-08-02] VITALS: Ht 162.6 cm; Wt 62.1 kg
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
[2025-08-02] MEDS ORDERED: LIDOCAINE 2% VISCOUS 6 ML SYR TOP ONE (15:00)
[2025-08-02 16:00] VITALS: BP 127/69
[2025-08-02 16:09] LABS: BLOOD/HGB, URINE LARGE (Negative); KETONE, URINE SMALL (Negative); LEUK ESTERASE, URINE SMALL (negative); NITRITE, URINE NEGATIVE (negative)
[2025-08-02 16:10] LABS: EPITHELIAL CELLS, URINE SQUAMOUS 1+ /lpf (0-1+)
[2025-08-02 16:11] LABS: BACTERIA, URINE RARE /hpf (negative); CASTS, URINE NONE SEEN \\lpf; CRYSTALS, URINE NONE SEEN (0-1+); REFLEX CULTURE, URINE Yes (No)
== END 2025-08-02 16:40 | disposition home or self-care (01) ==
LOC: ED 14:30
PROVIDERS: Emergency Medicine
DX: T83.021A Displacement of indwelling urethral catheter, 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 (principal); I12.9 Hypertensive chronic kidney disease with stage 1 through stage 4 chronic kidney disease, or unspecified chronic kidney disease; N18.9 Chronic kidney disease, unspecified; Z88.0 Allergy status to penicillin; Z88.2 Allergy status to sulfonamides; Z88.1 Allergy status to other antibiotic agents; Z88.8 Allergy status to other drugs, medicaments and biological substances; Z79.899 Other long term (current) drug therapy
CPT/HCPCS: 51702; 51798; 81001; 87088; 99283; A4311

== ENCOUNTER 2025-08-29 15:09 | Emergency (ER) | payer MEDICARE, OTHER ==
[~2025-08-29] VITALS: Ht 162.6 cm; Wt 60.0 kg
--- OUTSIDE RECORDS SUMMARY | ~2025-08-29 | XMS | Continuity of Care Document ---
Demographics + + + | Address | [address] | | | [place] [address] | + + + | Preferred Language | Unknown | + + + | Marital Status | | + + + | Holiness Affiliation | Unknown | + + + | Race | White | + + + | Ethnic Group | Not or | + + + Author + + + | Author | [facility] | + + + | Organization | [facility] | + + + | Address | [address] | | | [place] [address] | + + + | Phone | | + + + Care Team Providers + + + + | Care Handcrew Foreman Name | Role | Phone | + + + + Unavailable | Unavailable | + + + + Unavailable | Unavailable | + + + + Unavailable | Unavailable | + + + + Allergies and Intolerances + + + + + + | date | description | facility | reaction | severity | + + + + + + | 2025-06-04 | Ciprofloxacin | [facility] | (no reaction) | Mild | | 00:00 | | [facility] | | | + + + + + + | 2025-07-15 | Ciprofloxacin | [facility] - | (no reaction) | Mild | | 00:00 | | [facility] | | | + + + + + + | 2025-06-04 | Tadalafil | [facility] - | Rash | Moderate | | 00:00 | | [facility] | | | + + + + + + | 2025-07-15 | Tadalafil | [facility] - | Rash | Moderate | | 00:00 | | [facility] | | | + + + + + + | 2025-06-04 | Tamsulosin | [facility] - | (no reaction) | Moderate | | 00:00 | | [facility] | | | + + + + + + | 2025-07-15 | Tamsulosin | [facility] - | (no reaction) | Moderate | | 00:00 | | [facility] | | | + + + + + + | 2025-06-04 | Ciprofloxacin | [facility] - | (no reaction) | Mild | | 00:00 | | [facility] | | | + + + + + + | 2025-07-15 | Ciprofloxacin | [facility] - | (no reaction) | Mild | | 00:00 | | [facility] | | | + + + + + + | 2025-06-04 | Tadalafil | [facility] - | Rash | Moderate | | 00:00 | | [facility] | | | + + + + + + | 2025-07-15 | Tadalafil | [facility] - | Rash | Moderate | | 00:00 | | [facility] | | | + + + + + + | 2025-06-04 | Ciprofloxacin | [facility] - | (no reaction) | Mild | | 00:00 | | [facility] | | | + + + + + + | 2025-07-15 | Ciprofloxacin | [facility] - | (no reaction) | Mild | | 00:00 | | [facility] | | | + + + + + + | 2025-06-04 | Tadalafil | [facility] - | Rash | Moderate | | 00:00 | | [facility] | | | + + + + + + | 2025-07-15 | Tadalafil | [facility] - | Rash | Moderate | | 00:00 | | [facility] | | | + + + + + + | 2025-06-04 | Tamsulosin | [facility] - | (no reaction) | Moderate | | 00:00 | | [facility] | | | + + + + + + | 2025-07-15 | Tamsulosin | [facility] - | (no reaction) | Moderate | | 00:00 | | [facility] | | | + + + + + + | 2025-06-04 | Penicillin | [facility] - | (no reaction) | Moderate | | 00:00 | | [facility] | | | + + + + + + | 2025-07-15 | Penicillin | [facility] - | (no reaction) | Moderate | | 00:00 | | [facility] | | | + + + + + + | 2025-06-04 | Tamsulosin | [facility] - | (no reaction) | Moderate | | 00:00 | | [facility] | | | + + + + + + | 2025-07-15 | Tamsulosin | [facility] - | (no reaction) | Moderate | | 00:00 | | [facility] | | | + + + + + + | 2025-06-04 | Penicillin | [facility] - | (no reaction) | Moderate | | 00:00 | | [facility] | | | + + + + + + | 2025-07-15 | Penicillin | [facility] - | (no reaction) | Moderate | | 00:00 | | [facility] | | | + + + + + + | 2025-06-04 | Penicillin | [facility] - | (no reaction) | Moderate | | 00:00 | | [facility] | | | + + + + + + | 2025-07-15 | Penicillin | [facility] - | (no reaction) | Moderate | | 00:00 | | [facility] | | | + + + + + + | 2025-06-04 | UNK | [facility] - | Rash | Moderate | | 00:00 | [facility] | | | + + + + + + | 2025-07-15 | UNK | [facility] - | Rash | Moderate | | 00:00 | | [facility] | | | + + + + + + Encounters No information. Functional Status No information. Immunizations No information. Medications + + + + | date | description | facility | + + + + | (no date) | OXYCODONE HCL | [facility] | | | | [facility] | + + + + | (no date) | OXYCODONE HCL | [facility] | | | | [facility] | + + + + | (no date) | LAMOTRIGINE | [facility] | | | | [facility] | + + + + | (no date) | LAMOTRIGINE | [facility] | | | | [facility] | + + + + | (no date) | NITROFURANTOIN | [facility] | | | MONOHYD/M-CRYST | [facility] | + + + + | (no date) | NITROFURANTOIN | [facility] | | | MONOHYD/M-CRYST | [facility] | + + + + | 2025-07-15 00:00 | CEPHALEXIN | [facility] | | | | [facility] | + + + + | 2025-07-15 00:00 | CEPHALEXIN | [facility] | | | | [facility] | + + + + | (no date) | LAMOTRIGINE | [facility] | | | | [facility] | + + + + | (no date) | LAMOTRIGINE | [facility] | | | | [facility] | + + + + | (no date) | CALCIUM CITRATE | [facility] | | | | [facility] | + + + + | (no date) | CALCIUM CITRATE | [facility] | | | | [facility] | + + + + | (no date) | NIACIN | [facility] | | | | [facility] | + + + + | (no date) | NIACIN | [facility] | | | | [facility] | + + + + | (no date) | ASCORBIC ACID | [facility] | | | | [facility] | + + + + | (no date) | ASCORBIC ACID | [facility] | | | | [facility] | + + + + | (no date) | LEVOFLOXACIN | [facility] | | | | [facility] | + + + + | (no date) | LEVOFLOXACIN | [facility] | | | | [facility] | + + + + | (no date) | OMEPRAZOLE | [facility] | | | | [facility] | + + + + | (no date) | OMEPRAZOLE | [facility] | | | | [facility] | + + + + | (no date) | RIBOFLAVIN | [facility] | | | | [facility] | + + + + | (no date) | RIBOFLAVIN | [facility] | | | | [facility] | + + + + | (no date) | ZINC ACETATE | [facility] | | | | [facility] | + + + + | (no date) | ZINC ACETATE | [facility] | | | | [facility] | + + + + | (no date) | BIOTIN | [facility] | | | | [facility] | + + + + | (no date) | BIOTIN | [facility] | | | | [facility] | + + + + | (no date) | AMOXICILLIN | [facility] | | | | [facility] | + + + + | (no date) | AMOXICILLIN | [facility] | | | | [facility] | + + + + | (no date) | CEPHALEXIN | [facility] | | | | [facility] | + + + + | (no date) | CEPHALEXIN | [facility] | | | | [facility] | + + + + | (no date) | THIAMINE HCL | [facility] | | | | [facility] | + + + + | (no date) | THIAMINE HCL | [facility] | | | | [facility] | + + + + | (no date) | ACETAMINOPHEN | [facility] | | | | [facility] | + + + + | (no date) | ACETAMINOPHEN | [facility] | | | | [facility] | + + + + | 2025-07-09 00:00 | LISINOPRIL | [facility] | | | | [facility] | + + + + | 2025-07-09 00:00 | LISINOPRIL | [facility] | | | | [facility] | + + + + | (no date) | HYDROCODONE | [facility] | | | BIT/ACETAMINOPHEN | [facility] | + + + + | (no date) | HYDROCODONE | [facility] | | | BIT/ACETAMINOPHEN | [facility] | + + + + | (no date) | OXYBUTYNIN CHLORIDE | [facility] | | | | [facility] | + + + + | (no date) | OXYBUTYNIN CHLORIDE | [facility] | | | | [facility] | + + + + Problems + + + + | date | description | facility | + + + + | 2025-07-09 00:00 | Hypertension | [facility] | | | | [facility] | + + + + | 2025-07-09 00:00 | Hypertension | [facility] | | | | [facility] | + + + + | 2025-07-09 00:00 | Complication of Grady | [facility] | | | catheter | [facility] | + + + + | 2025-07-09 00:00 | Complication of Grady | [facility] | | | catheter | [facility] | + + + + | 2025-07-10 00:00 | Encounter for Grady | [facility] | | | catheter fitting and | [facility] | | | adjustment | | + + + + | 2025-07-10 00:00 | Encounter for Miguel A | [facility] | | | catheter fitting and | [facility] | | | adjustment | | + + + + Procedures No information. Results/Labs +--------+--------+ +---------+--------+---------+ | test | date | facility | value | unit | notes | +--------+--------+ +---------+--------+---------+ + + | Result panel 1 | + + + + + + + + + | Color Ur | 2025-06-24 | | YELLOW | (missing) | (missing) | | Auto | 16:48:07 | [facility] | | | | + + + + + + + + + | Result panel 2 | + + + + + + + + + | Character | 2025-06-24 | | SL CLOUDY | (missing) | (missing) | | Ur | 16:48:07 | [facility] | | | | + + + + + + + + + | Result panel 3 | + + + + + + + + + | Glucose Ur | 2025-06-24 | | NEGATIVE | (missing) | (missing) | | Ql Strip | 16:48:07 | [facility] | | | | + + + + + + + + + | Result panel 4 | + + + + + + + + + | Bilgauri Ur | 2025-06-24 | | NEGATIVE | (missing) | (missing) | | Ql Strip | 16:48:07 | [facility] | | | | + + + + + + + + + | Result panel 5 | + + + + + + + + + | Ketonejuan Ur | 2025-06-24 | | NEGATIVE | (missing) | (missing) | | Ql Strip | 16:48:07 | [facility] | | | | + + + + + + + + + | Result panel 6 | + + + + + +---------+ + + | Sp Gr Ur | 2025-06-24 | | 1.020 | (missing) | (missing) | | Strip | 16:48:07 | [facility] | | | | + + + +---------+ + + + + | Result panel 7 | + + + + + +---------+ + + | Hgb Ur Ql | 2025-06-24 | | LARGE | (missing) | (missing) | | Strip | 16:48:07 | [facility] | | | | + + + +---------+ + + + + | Result panel 8 | + + + + + +-------+ + + | pH Ur Strip | 2025-06-24 | | 5.5 | (missing) | (missing) | | | 16:48:07 | [facility] | | | | + + + +-------+ + + + + | Result panel 9 | + + + + + +------+ + + | Prot Ur | 2025-06-24 | | 30 | (missing) | (missing) | | [facility] | 16:48:07 | [facility] | | - [facility] | | | | | | [facility] | | | | + + + +------+ + + + + | Result panel 10 | + + + + + + + + + | | 2025-06-24 | | NORMAL | (missing) | (missing) | | Urobilinogen | 16:48:07 | [facility] | | | | | Ur [facility] | [facility] | | | | + + + + + + + + + | Result panel 11 | + + + + + + + + + | Nitrite Ur | 2025-06-24 | | NEGATIVE | (missing) | (missing) | | Ql Strip | 16:48:07 | [facility] | | | | + + + + + + + + + | Result panel 12 | + + + + + +---------+ + + | Leukocyte | 2025-06-24 | | TRACE | (missing) | (missing) | | esterase Ur | 16:48:07 | [facility] | | | | | Ql Strip | [facility] | | | | + + + +---------+ + + + + | Result panel 13 | + + + + + +-------+ + + | RBC #/area | 2025-06-24 | | >50 | (missing) | (missing) | | UrnS [facility]PF | 16:48:07 | [facility] | | | | + + + +-------+ + + + + | Result panel 14 | + + + + + +-------+ + + | WBC #/area | 2025-06-24 | | 4-6 | (missing) | (missing) | | UrnS [facility] | 16:48:07 | [facility] | | | | + + + +-------+ + + + + | Result panel 15 | + + + + + +-----+ + + | Epi Cells | 2025-06-24 | | 0 | (missing) | (missing) | | #/area UrnS | 16:48:07 | [facility] | | | | | HPF | [facility] | | | | + + + +-----+ + + + + | Result panel 16 | + + + + + + + + + | Crystals | 2025-06-24 | | NONE SEEN | (missing) | (missing) | | Durga Micro | 16:48:07 | [facility] | | [facility] | | | | + + + + + + + + + | Result panel 17 | + + + + + + + + + | Bacteria | 2025-06-24 | | NONE SEEN | (missing) | (missing) | | #/area UrnS | 16:48:07 | [facility] | | | | | HPF | [facility] | | | | + + + + + + + + + | Result panel 18 | + + + + + + + + + | Casts | 2025-06-24 | | NONE SEEN | (missing) | (missing) | | #/area UrnS | 16:48:07 | [facility] | | | | | LPF | [facility] | | | | + + + + + + + + + | Result panel 19 | + + + + + +------+ + + | Bacteria Ur | 2025-06-24 | | No | (missing) | (missing) | | Cult | 16:48:07 | [facility] | [facility] | | | | + + + +------+ + + + + | Result panel 20 | + + + + + +--------+ + + | Urn Spec | 2025-06-24 | | CATH | (missing) | (missing) | | Collect Meth | 16:48:07 | [facility] | | | | | Ur | [facility] | | | | + + + +--------+ + + + + | Result panel 21 | + + + + + +---------+ + + | WBC # Bld | 2025-07-15 | | 10.35 | (missing) | (missing) | | Auto | 02:15: | [facility] | | | | + + + +---------+ + + + + | Result panel 22 | + + + + + +--------+ + + | Lymphocytes | 2025-07-15 | | 14.1 | (missing) | (missing) | | NFr Bld | 02:15:07 | [facility] | | | | | Auto | [facility] | | | | + + + +--------+ + + + + | Result panel 23 | + + + + + +--------+ + + | | 2025-07-15 | | 0.77 | (missing) | (missing) | | Albumin/Glob | 02:15:07 | [facility] | | | | | SerPl | [facility] | | | | + + + +--------+ + + + + | Result panel 24 | + + + + + +-------+---------+ + | Bilirub | 2025-07-15 | | 0.7 | mg/dL | (missing) | | SerPl-mCnc | 02:15:07 | [facility] | | | | [facility] | | | | + + + +-------+---------+ + + + | Result panel 25 | + + + + + +------+ + + | AST | 2025-07-15 | | 41 | (missing) | (missing) | | SerPl[facility] | 02:15:07 | [facility] | | | | + + + +------+ + + + + | Result panel 26 | + + + + + +------+ + + | ALT | 2025-07-15 | | 54 | (missing) | (missing) | | SerPl-cCnc | 02:15:07 | [facility] | | | | + + + +------+ + + + + | Result panel 27 | + + + + + +-------+ + + | ALP | 2025-07-15 | | 184 | (missing) | (missing) | | SerPl-cCnc | 02:15:07 | [facility] | | | | + + + +-------+ + + + + | Result panel 28 | + + + + + +---------+ + + | WBC # Bld | 2025-07-15 | | 10.35 | (missing) | (missing) | | Auto | 02:15:07 | [facility] | | | | + + + +---------+ + + + + | Result panel 29 | + + + + + +--------+ + + | RBC # Bld | 2025-07-15 | | 4.64 | (missing) | (missing) | | Auto | 02:15:07 | [facility] | | | | + + + +--------+ + + + + | Result panel 30 | + + + + + +--------+ + + | Hgb | 2025-07-15 | | 13.2 | (missing) | (missing) | | Bld-mCnc | 02:15:07 | [facility] | | | | + + + +--------+ + + + + | Result panel 31 | + + + + + +--------+ + + | Hct VFr.DF | 2025-07-15 | | 40.9 | (missing) | (missing) | | Bld Auto | 02:15:07 | [facility] | | | | + + + +--------+ + + + + | Result panel 32 | + + + + + +--------+ + + | RBC Auto | 2025-07-15 | | 88.1 | (missing) | (missing) | | | 02:15:07 | [facility] | | | | + + + +--------+ + + + + | Result panel 33 | + + + + + +--------+ + + | Monocytes | 2025-07-15 | | 12.0 | (missing) | (missing) | | NFr Bld Auto | 02:15:07 | [facility] | | | | + + + +--------+ + + + + | Result panel 34 | + + + + + +--------+ + + | MCH RBC Qn | 2025-07-15 | | 28.4 | (missing) | (missing) | | Auto | 02:15:07 | [facility] | | | | + + + +--------+ + + + + | Result panel 35 | + + + + + +--------+ + + | MCHC RBC | 2025-07-15 | | 32.3 | (missing) | (missing) | | Auto-EntMCnc | 02:15:07 | [facility] | | | | + + + +--------+ + + + + | Result panel 36 | + + + + + +-------+ + + | Platelet # | 2025-07-15 | | 323 | (missing) | (missing) | | Bld Auto | 02:15:07 | [facility] | | | | + + + +-------+ + + + + | Result panel 37 | + + + + + +--------+ + + | Neutrophils | 2025-07-15 | | 71.4 | (missing) | (missing) | | NFr Bld | 02:15:07 | [facility] | | | | | Auto | [facility] | | | | + + + +--------+ + + + + | Result panel 38 | + + + + + +--------+ + + | Lymphocytes | 2025-07-15 | | 14.1 | (missing) | (missing) | | NFr Bld | 02:15:07 | [facility] | | | | | Auto | [facility] | | | | + + + +--------+ + + + + | Result panel 39 | + + + + + +--------+ + + | Monocytes | 2025-07-15 | | 12.0 | (missing) | (missing) | | NFr Bld Auto | 02:15:07 | [facility] | | | | + + + +--------+ + + + + | Result panel 40 | + + + + + +-------+ + + | Eosinophil | 2025-07-15 | | 1.4 | (missing) | (missing) | | NFr Bld Auto | 02:15:07 | [facility] | | | | + + + +-------+ + + + + | Result panel 41 | + + + + + +-------+ + + | Basophils | 2025-07-15 | | 0.8 | (missing) | (missing) | | NFr Bld Auto | 02:15:07 | [facility] | | | | + + + +-------+ + + + + | Result panel 42 | + + + + + +-------+ + + | Eosinophil | 2025-07-15 | | 1.4 | (missing) | (missing) | | NFr Bld Auto | 02:15:07 | [facility] | | | | + + + +-------+ + + + + | Result panel 43 | + + + + + +-------+ + + | Basophils | 2025-07-15 | | 0.8 | (missing) | (missing) | | NFr Bld Auto | 02:15:07 | [facility] | | | | + + + +-------+ + + + + | Result panel 44 | + + + + + +-------+---------+ + | Glucose | 2025-07-15 | | 117 | mg/dL | (missing) | | SerPl-mCskye | 02:15:07 | [facility] | | | | + + + +-------+---------+ + + + | Result panel 45 | + + + + + +------+---------+ + | BUN | 2025-07-15 | | 37 | mg/dL | (missing) | | Trace-Monster | 02:15:07 | [facility] | | | | + + + +------+---------+ + + + | Result panel 46 | + + + + + +--------+---------+ + | Creat | 2025-07-15 | | 0.89 | mg/dL | (missing) | | SerPl-mCnc | 02:15:07 | [facility] [place] [facility] | | | | + + + +--------+---------+ + + + | Result panel 47 | + + + + + +------+ + + | eGFRcr | 2025-07-15 | | 86 | (missing) | (missing) | | SerPlBld | 02:15:07 | [facility] | | | | | CKD-EPI 2020 | [facility] | | | | + + + +------+ + + + + | Result panel 48 | + + + + + +---------+ + + | BUN/Creat | 2025-07-15 | | 41.57 | (missing) | (missing) | | SerPl | 02:15:07 | [facility] | [facility] | | | | + + + +---------+ + + + + | Result panel 49 | + + + + + +-------+ + + | Sodium | 2025-07-15 | | 139 | (missing) | (missing) | | SerPl-sCnc | 02:15:07 | [facility] | | [facility] | | | | + + + +-------+ + + + + | Result panel 50 | + + + + + +-------+ + + | Potassium | 2025-07-15 | | 3.6 | (missing) | (missing) | | [facility] | 02:15:07 | [facility] | | | | + + + +-------+ + + + + | Result panel 51 | + + + + + +-------+ + + | Chloride | 2025-07-15 | | 103 | (missing) | (missing) | | SerPl-sCnc | 02:15: | [facility] | | | | + + + +-------+ + + + + | Result panel 52 | + + + + + +------+ + + | CO2 | 2025-07-15 | | 23 | (missing) | (missing) | | [facility] | 02:15:07 | [facility] | | | | + + + +------+ + + + + | Result panel 53 | + + + + + +--------+ + + | Anion Gap | 2025-07-15 | | 16.6 | (missing) | (missing) | | SerPl | 02:15:07 | [facility] | | | | | Calculated.4 | [facility] | | | | + + + +--------+ + + + + | Result panel 54 | + + + + + +-------+---------+ + | Calcium | 2025-07-15 | | 9.5 | mg/dL | (missing) | | [facility] | 02:15:07 | [facility] | | | | + + + +-------+---------+ + + + | Result panel 55 | + + + + + +-------+ + + | Prot | 2025-07-15 | | 7.6 | (missing) | (missing) | | SerPl-mCskye | 02:15:07 | [facility] | | | | + + + +-------+ + + + + | Result panel 56 | + + + + + +-------+ + + | Albumin | 2025-07-15 | | 3.3 | (missing) | (missing) | | [facility] | 02:15:07 | [facility] | | | | + + + +-------+ + + + + | Result panel 57 | + + + + + +-------+ + + | Globulin | 2025-07-15 | | 4.3 | (missing) | (missing) | | Ser-mCnc | 02:15:07 | [facility] | | | | + + + +-------+ + + + + | Result panel 58 | + + + + + +--------+ + + | | 2025-07-15 | | 0.77 | (missing) | (missing) | | Albumin/Glob | 02:15:07 | [facility] | | | [facility] | | | | + + + +--------+ + + + + | Result panel 59 | + + + + + +-------+---------+ + | Bilirub | 2025-07-15 | | 0.7 | mg/dL | (missing) | | SerPl-mCskye | 02:15:07 | [facility] | | | | + + + +-------+---------+ + + + | Result panel 60 | + + + + + +------+ + + | AST | 2025-07-15 | | 41 | (missing) | (missing) | | SerPl-cCnc | 02:15: | [facility] | | | | + + + +------+ + + + + | Result panel 61 | + + + + + +------+ + + | ALT | 2025-07-15 | | 54 | (missing) | (missing) | | SerPl-cCnc | 02:15:07 | [facility] | | | | + + + +------+ + + + + | Result panel 62 | + + + + + +-------+ + + | ALP | 2025-07-15 | | 184 | (missing) | (missing) | | SerPl-cCnc | 02:15:07 | [facility] | | | | + + + +-------+ + + + + | Result panel 63 | + + + + + +---------+ + + | WBC # Bld | 2025-07-15 | | 10.35 | (missing) | (missing) | | Auto | 02:15:07 | [facility] | | | | + + + +---------+ + + + + | Result panel 64 | + + + + + +--------+ + + | RBC # Bld | 2025-07-15 | | 4.64 | (missing) | (missing) | | Auto | 02:15:07 | [facility] | | | | + + + +--------+ + + + + | Result panel 65 | + + + + + +--------+ + + | Hgb | 2025-07-15 | | 13.2 | (missing) | (missing) | | Bld-mCnc | 02:15:07 | [facility] | | | | + + + +--------+ + + + + | Result panel 66 | + + + + + +--------+ + + | Hct VFr.DF | 2025-07-15 | | 40.9 | (missing) | (missing) | | Bld Auto | 02:15:07 | [facility] | | | | + + + +--------+ + + + + | Result panel 67 | + + + + + +--------+ + + | RBC Auto | 2025-07-15 | | 88.1 | (missing) | (missing) | | | 02:15:07 | [facility] | | | | + + + +--------+ + + + + | Result panel 68 | + + + + + +--------+ + + | MCH RBC Qn | 2025-07-15 | | 28.4 | (missing) | (missing) | | Auto | 02:15:07 | [facility] | | | | + + + +--------+ + + + + | Result panel 69 | + + + + + +--------+ + + | MCHC RBC | 2025-07-15 | | 32.3 | (missing) | (missing) | | Auto-EntMCnc | 02:15:07 | [facility] | | | | + + + +--------+ + + + + | Result panel 70 | + + + + + +-------+ + + | Platelet # | 2025-07-15 | | 323 | (missing) | (missing) | | Bld Auto | 02:15:07 | [facility] | | | | + + + +-------+ + + + + | Result panel 71 | + + + + + +--------+ + + | Neutrophils | 2025-07-15 | | 71.4 | (missing) | (missing) | | NFr Bld | 02:15:07 | [facility] | | | | | Auto | [facility] | | | | + + + +--------+ + + + + | Result panel 72 | + + + + + +--------+ + + | Lymphocytes | 2025-07-15 | | 14.1 | (missing) | (missing) | | NFr Bld | 02:15:07 | [facility] | | | | | Auto | [facility] | | | | + + + +--------+ + + + + | Result panel 73 | + + + + + +--------+ + + | Monocytes | 2025-07-15 | | 12.0 | (missing) | (missing) | | NFr Bld Auto | 02:15:07 | [facility] | | | | + + + +--------+ + + + + | Result panel 74 | + + + + + +-------+ + + | Eosinophil | 2025-07-15 | | 1.4 | (missing) | (missing) | | NFr Bld Auto | 02:15:07 | [facility] | | | | + + + +-------+ + + + + | Result panel 75 | + + + + + +-------+ + + | Basophils | 2025-07-15 | | 0.8 | (missing) | (missing) | | NFr Bld Auto | 02:15:07 | [facility] | | | | + + + +-------+ + + + + | Result panel 76 | + + + + + +-------+---------+ + | Glucose | 2025-07-15 | | 117 | mg/dL | (missing) | | SerPl-mCnc | 02:15:07 | [facility] | | | | + + + +-------+---------+ + + + | Result panel 77 | + + + + + +------+---------+ + | BUN | 2025-07-15 | | 37 | mg/dL | (missing) | | SerPl-mCnc | 02:15:07 | [facility] | | | | + + + +------+---------+ + + + | Result panel 78 | + + + + + +--------+---------+ + | Creat | 2025-07-15 | | 0.89 | mg/dL | (missing) | | SerPl-mCnc | 02:15:07 | [facility] | | | | + + + +--------+---------+ + + + | Result panel 79 | + + + + + +------+ + + | eGFRcr | 2025-07-15 | | 86 | (missing) | (missing) | | SerPlBld | 02:15:07 | [facility] | | | | | CKD-EPI 2020 | [facility] | | | | + + + +------+ + + + + | Result panel 80 | + + + + + +---------+ + + | BUN/Creat | 2025-07-15 | | 41.57 | (missing) | (missing) | | SerPl | 02:15:07 | [facility] | | | | + + + +---------+ + + + + | Result panel 81 | + + + + + +-------+ + + | Sodium | 2025-07-15 | | 139 | (missing) | (missing) | | SerPl-sCnc | 02:15:07 | [facility] | | | | + + + +-------+ + + + + | Result panel 82 | + + + + + +-------+ + + | Potassium | 2025-07-15 | | 3.6 | (missing) | (missing) | | SerPl-sCnc | 02:15:07 | [facility] | | | | + + + +-------+ + + + + | Result panel 83 | + + + + + +-------+ + + | Chloride | 2025-07-15 | | 103 | (missing) | (missing) | | SerPl-sCnc | 02:15:07 | [facility] | | | | + + + +-------+ + + + + | Result panel 84 | + + + + + +------+ + + | CO2 | 2025-07-15 | | 23 | (missing) | (missing) | | SerPl-[facility] | 02:15:07 | [facility] | | | | + + + +------+ + + + + | Result panel 85 | + + + + + +--------+ + + | Anion Gap | 2025-07-15 | | 16.6 | (missing) | (missing) | | SerPl | 02:15:07 | [facility] | | | | | Calculated.4 | [facility] | [facility] | | | | + + + +--------+ + + + + | Result panel 86 | + + + + + +-------+---------+ + | Calcium | 2025-07-15 | | 9.5 | mg/dL | (missing) | | SerPl-mCnc | 02:15:07 | [facility] | | | | + + + +-------+---------+ + + + | Result panel 87 | + + + + + +-------+ + + | Prot | 2025-07-15 | | 7.6 | (missing) | (missing) | | Trace-Monster | 02:15:07 | [facility] | | | | + + + +-------+ + + + + | Result panel 88 | + + + + + +-------+ + + | Albumin | 2025-07-15 | | 3.3 | (missing) | (missing) | | Trace-Monster | 02:15:07 | [facility] | | | | + + + +-------+ + + + + | Result panel 89 | + + + + + +-------+ + + | Globulin | 2025-07-15 | | 4.3 | (missing) | (missing) | | Ser-mCnc | 02:15:07 | [facility] | | | | + + + +-------+ + + + + | Result panel 90 | + + + + + +--------+ + + | | 2025-07-15 | | 0.77 | (missing) | (missing) | | Albumin/Glob | 02:15:07 | [facility] | | | | + + + +--------+ + + + + | Result panel 91 | + + + + + +-------+---------+ + | Bilirub | 2025-07-15 | | 0.7 | mg/dL | (missing) | | SerPl-mCnc | 02:15:07 | [facility] | | | | + + + +-------+---------+ + + + | Result panel 92 | + + + + + +------+ + + | AST | 2025-07-15 | | 41 | (missing) | (missing) | | SerPl-cCnc | 02:15:07 | [facility] | | | | + + + +------+ + + + + | Result panel 93 | + + + + + +------+ + + | ALT | 2025-07-15 | | 54 | (missing) | (missing) | | SerPl-cCnc | 02:15:07 | [facility] | | | | + + + +------+ + + + + | Result panel 94 | + + + + + +-------+ + + | ALP | 2025-07-15 | | 184 | (missing) | (missing) | | SerPl-cCnc | 02:15:07 | [facility] | | | | + + + +-------+ + + + + | Result panel 95 | + + + + + +--------+ + + | RBC # Bld | 2025-07-15 | | 4.64 | (missing) | (missing) | | Auto | 02:15:07 | [facility] | | | | + + + +--------+ + + + + | Result panel 96 | + + + + + +--------+ + + | Hgb | 2025-07-15 | | 13.2 | (missing) | (missing) | | Bld-mCnc | 02:15:07 | [facility] | | | | + + + +--------+ + + + + | Result panel 97 | + + + + + +-------+---------+ + | Glucose | 2025-07-15 | | 117 | mg/dL | (missing) | | SerPl-mCnc | 02:15:07 | [facility] | | | | + + + +-------+---------+ + + + | Result panel 98 | + + + + + +------+---------+ + | BUN | 2025-07-15 | | 37 | mg/dL | (missing) | | Trace-Monster | 02:15:07 | [facility] | | | | + + + +------+---------+ + + + | Result panel 99 | + + + + + +--------+---------+ + | Creat | 2025-07-15 | | 0.89 | mg/dL | (missing) | | Trace-Monster | 02:15:07 | [facility] | | | | + + + +--------+---------+ + + + | Result panel 100 | + + + + + +------+ + + | eGFRcr | 2025-07-15 | | 86 | (missing) | (missing) | | SerPlBld | 02:15:07 | [facility] | | | | | CKD-EPI 2020 | [facility] | | | | + + + +------+ + + + + | Result panel 101 | + + + + + +---------+ + + | BUN/Creat | 2025-07-15 | | 41.57 | (missing) | (missing) | | SerPl | 02:15:07 | [facility] | | | | + + + +---------+ + + + + | Result panel 102 | + + + + + +-------+ + + | Sodium | 2025-07-15 | | 139 | (missing) | (missing) | | SerPl-sCnc | 02:15:07 | [facility] | | | | + + + +-------+ + + + + | Result panel 103 | + + + + + +--------+ + + | Hct VFr.DF | 2025-07-15 | | 40.9 | (missing) | (missing) | | Bld Auto | 02:15:07 | [facility] | | | | + + + +--------+ + + + + | Result panel 104 | + + + + + +-------+ + + | Potassium | 2025-07-15 | | 3.6 | (missing) | (missing) | | SerPl-sCnc | 02:15:07 | [facility] | | | | + + + +-------+ + + + + | Result panel 105 | + + + + + +-------+ + + | Chloride | 2025-07-15 | | 103 | (missing) | (missing) | | SerPl-sCnc | 02:15:07 | [facility] | | | | + + + +-------+ + + + + | Result panel 106 | + + + + + +------+ + + | CO2 | 2025-07-15 | | 23 | (missing) | (missing) | | SerPl-sCnc | 02:15:07 | [facility] | | | | + + + +------+ + + + + | Result panel 107 | + + + + + +--------+ + + | Anion Gap | 2025-07-15 | | 16.6 | (missing) | (missing) | | SerPl | 02:15:07 | [facility] | | | | | Calculated.4 | [facility] | | | | + + + +--------+ + + + + | Result panel 108 | + + + + + +-------+---------+ + | Calcium | 2025-07-15 | | 9.5 | mg/dL | (missing) | | SerPl-mCnc | 02:15:07 | [facility] | | | | + + + +-------+---------+ + + + | Result panel 109 | + + + + + +-------+ + + | Prot | 2025-07-15 | | 7.6 | (missing) | (missing) | | Trace-Monster | 02:15:07 | [facility] | | | | + + + +-------+ + + + + | Result panel 110 | + + + + + +-------+ + + | Albumin | 2025-07-15 | | 3.3 | (missing) | (missing) | | SerPl-mCskye | 02:15:07 | [facility] | | | | + + + +-------+ + + + + | Result panel 111 | + + + + + +-------+ + + | Globulin | 2025-07-15 | | 4.3 | (missing) | (missing) | | Ser-[facility] | 02:15:07 | [facility] | | | | + + + +-------+ + + + + | Result panel 112 | + + + + + +--------+ + + | | 2025-07-15 | | 0.77 | (missing) | (missing) | | Albumin/Glob | 02:15:07 | [facility] | | | | + + + +--------+ + + + + | Result panel 113 | + + + + + +-------+---------+ + | Bilirub | 2025-07-15 | | 0.7 | mg/dL | (missing) | | SerPl-mCnc | 02:15:07 | [facility] | | | | + + + +-------+---------+ + + + | Result panel 114 | + + + + + +--------+ + + | RBC Auto | 2025-07-15 | | 88.1 | (missing) | (missing) | | | 02:15:07 | [facility] | | | | + + + +--------+ + + + + | Result panel 115 | + + + + + +------+ + + | AST | 2025-07-15 | | 41 | (missing) | (missing) | | SerPl-cCnc | 02:15:07 | [facility] | | | | + + + +------+ + + + + | Result panel 116 | + + + + + +------+ + + | ALT | 2025-07-15 | | 54 | (missing) | (missing) | | SerPl-cCnc | 02:15:07 | [facility] | | | | + + + +------+ + + + + | Result panel 117 | + + + + + +-------+ + + | ALP | 2025-07-15 | | 184 | (missing) | (missing) | | SerPl-cCnc | 02:15:07 | [facility] | | | | + + + +-------+ + + + + | Result panel 118 | + + + + + +---------+ + + | WBC # Bld | 2025-07-15 | | 10.35 | (missing) | (missing) | | Auto | 02:15:07 | [facility] | | | | + + + +---------+ + + + + | Result panel 119 | + + + + + +--------+ + + | RBC # Bld | 2025-07-15 | | 4.64 | (missing) | (missing) | | Auto | 02:15:07 | [facility] | | | | + + + +--------+ + + + + | Result panel 120 | + + + + + +--------+ + + | Hgb | 2025-07-15 | | 13.2 | (missing) | (missing) | | Bld-[facility] | 02:15:07 | [facility] | | | | + + + +--------+ + + + + | Result panel 121 | + + + + + +--------+ + + | Hct VFr.DF | 2025-07-15 | | 40.9 | (missing) | (missing) | | Bld Auto | 02:15:07 | [facility] | | | | + + + +--------+ + + + + | Result panel 122 | + + + + + +--------+ + + | RBC Auto | 2025-07-15 | | 88.1 | (missing) | (missing) | | | 02:15: | [facility] | | | | + + + +--------+ + + + + | Result panel 123 | + + + + + +--------+ + + | MCH RBC Qn | 2025-07-15 | | 28.4 | (missing) | (missing) | | Auto | 02:15:07 | [facility] | | | | | | | - [facility] | | | [facility] | | | | + + + +--------+ + + + + | Result panel 124 | + + + + + +--------+ + + | MCHC RBC | 2025-07-15 | | 32.3 | (missing) | (missing) | | Auto-EntMCnc | 02:15:07 | [facility] | | | | + + + +--------+ + + + + | Result panel 125 | + + + + + +--------+ + + | MCH RBC Qn | 2025-07-15 | | 28.4 | (missing) | (missing) | | Auto | 02:15:07 | [facility] | | | | + + + +--------+ + + + + | Result panel 126 | + + + + + +-------+ + + | Platelet # | 2025-07-15 | | 323 | (missing) | (missing) | | Bld Auto | 02:15:07 | [facility] | | | | + + + +-------+ + + + + | Result panel 127 | + + + + + +--------+ + + | Neutrophils | 2025-07-15 | | 71.4 | (missing) | (missing) | | NFr Bld | 02:15:07 | [facility] | | | | | Auto | [facility] | | | | + + + +--------+ + + + + | Result panel 128 | + + + + + +--------+ + + | Lymphocytes | 2025-07-15 | | 14.1 | (missing) | (missing) | | NFr Bld | 02:15:07 | [facility] | | | | | Auto | [facility] | | | | + + + +--------+ + + + + | Result panel 129 | + + + + + +--------+ + + | Monocytes | 2025-07-15 | | 12.0 | (missing) | (missing) | | NFr Bld Auto | 02:15:07 | [facility] | | | | + + + +--------+ + + + + | Result panel 130 | + + + + + +-------+ + + | Eosinophil | 2025-07-15 | | 1.4 | (missing) | (missing) | | NFr Bld Auto | 02:15:07 | [facility] | | | | + + + +-------+ + + + + | Result panel 131 | + + + + + +-------+ + + | Basophils | 2025-07-15 | | 0.8 | (missing) | (missing) | | NFr Bld Auto | 02:15:07 | [facility] | | | | + + + +-------+ + + + + | Result panel 132 | + + + + + +--------+ + + | MCHC RBC | 2025-07-15 | | 32.3 | (missing) | (missing) | | Auto-EntMCnc | 02:15: | [facility] | | | | + + + +--------+ + + + + | Result panel 133 | + + + + + +-------+ + + | Platelet # | 2025-07-15 | | 323 | (missing) | (missing) | | Bld Auto | 02:15:07 | [facility] | | | | + + + +-------+ + + + + | Result panel 134 | + + + + + +-------+---------+ + | Glucose | 2025-07-15 | | 117 | mg/dL | (missing) | | [facility] | 02:15:07 | [facility] | | | | + + + +-------+---------+ + + + | Result panel 135 | + + + + + +------+---------+ + | BUN | 2025-07-15 | | 37 | mg/dL | (missing) | | SerPl-mCnc | 02:15:07 | [facility] | | | | + + + +------+---------+ + + + | Result panel 136 | + + + + + +--------+---------+ + | Creat | 2025-07-15 | | 0.89 | mg/dL | (missing) | | SerPl-mCnc | 02:15:07 | [facility] | | | | + + + +--------+---------+ + + + | Result panel 137 | + + + + + +------+ + + | eGFRcr | 2025-07-15 | | 86 | (missing) | (missing) | | SerPlBld | 02:15:07 | [facility] | | | | | CKD-EPI 2020 | [facility] | | | | + + + +------+ + + + + | Result panel 138 | + + + + + +--------+ + + | Neutrophils | 2025-07-15 | | 71.4 | (missing) | (missing) | | NFr Bld | 02:15:07 | [facility] | | | | | Auto | | [facility] | | | | + + + +--------+ + + + + | Result panel 139 | + + + + + +---------+ + + | BUN/Creat | 2025-07-15 | | 41.57 | (missing) | (missing) | | SerPl | 02:15:07 | [facility] | | | | + + + +---------+ + + + + | Result panel 140 | + + + + + +-------+ + + | Sodium | 2025-07-15 | | 139 | (missing) | (missing) | | SerPl-sCnc | 02:15:07 | [facility] | | | | + + + +-------+ + + + + | Result panel 141 | + + + + + +-------+ + + | Potassium | 2025-07-15 | | 3.6 | (missing) | (missing) | | SerPl-sCnc | 02:15:07 | [facility] | | | | + + + +-------+ + + + + | Result panel 142 | + + + + + +-------+ + + | Chloride | 2025-07-15 | | 103 | (missing) | (missing) | | SerPl-sCnc | 02:15:07 | [facility] | | | | + + + +-------+ + + + + | Result panel 143 | + + + + + +------+ + + | CO2 | 2025-07-15 | | 23 | (missing) | (missing) | | [facility] | 02:15:07 | [facility] | | | | + + + +------+ + + + + | Result panel 144 | + + + + + +--------+ + + | Anion Gap | 2025-07-15 | | 16.6 | (missing) | (missing) | | SerPl | 02:15:07 | [facility] | | | | | Calculated.4 | [facility] | | | | + + + +--------+ + + + + | Result panel 145 | + + + + + +-------+---------+ + | Calcium | 2025-07-15 | | 9.5 | mg/dL | (missing) | | [facility] | 02:15:07 | [facility] | | | | + + + +-------+---------+ + + + | Result panel 146 | + + + + + +-------+ + + | Prot | 2025-07-15 | | 7.6 | (missing) | (missing) | | [facility] | 02:15:07 | [facility] | | | | + + + +-------+ + + + + | Result panel 147 | + + + + + +-------+ + + | Albumin | 2025-07-15 | | 3.3 | (missing) | (missing) | | SerPalva-m[facility] | 02:15:07 | [facility] | | | | + + + +-------+ + + + + | Result panel 148 | + + + + + +-------+ + + | Globulin | 2025-07-15 | | 4.3 | (missing) | (missing) | | Ser-mCnc | 02:15:07 | [facility] | | | | + + + +-------+ + + + + | Result panel 149 | + + + + + + + + + | Color Ur | 2025-07-15 | | YELLOW | (missing) | (missing) | | Auto | 02:33:07 | [facility] | | | | + + + + + + + + + | Result panel 150 | + + + + + + + + + | Character | 2025-07-15 | | TURBID | (missing) | (missing) | | Ur | 02:33:07 | [facility] | | | | + + + + + + + + + | Result panel 151 | + + + + + + + + + | Glucose Ur | 2025-07-15 | | NEGATIVE | (missing) | (missing) | | Ql Strip | 02:33:07 | [facility] | | | | + + + + + + + + + | Result panel 152 | + + + + + + + + + | Yasmany Ur | 2025-07-15 | | NEGATIVE | (missing) | (missing) | | Ql Strip | 02:33:07 | [facility] - [facility] | | | | | | [facility] | | | | + + + + + + + + + | Result panel 153 | + + + + + + + + + | Ketones Ur | 2025-07-15 | | NEGATIVE | (missing) | (missing) | | Ql Strip | 02:33:07 | [facility] | | | | + + + + + + + + + | Result panel 154 | + + + + + +---------+ + + | Sp Gr Ur | 2025-07-15 | | 1.020 | (missing) | (missing) | | Strip | 02:33:07 | [facility] | | | | + + + +---------+ + + + + | Result panel 155 | + + + + + +---------+ + + | Hgb Ur Ql | 2025-07-15 | | LARGE | (missing) | (missing) | | Strip | 02:33:07 | [facility] | | | | + + + +---------+ + + + + | Result panel 156 | + + + + + +-------+ + + | pH Ur Strip | 2025-07-15 | | 6.0 | (missing) | (missing) | | | 02:33:07 | [facility] | | | | + + + +-------+ + + + + | Result panel 157 | + + + + + +---------+ + + | Prot Ur | 2025-07-15 | | >=300 | (missing) | (missing) | | Strip-mCnc | 02:33:07 | [facility] | | | | [facility] | | | | + + + +---------+ + + + + | Result panel 158 | + + + + + + + + + | | 2025-07-15 | | NORMAL | (missing) | (missing) | | Urobilinogen | 02:33:07 | [facility] | | | | | Ur | | - [facility] | [facility] | | | | + + + + + + + + + | Result panel 159 | + + + + + + + + + | Nitrite Ur | 2025-07-15 | | NEGATIVE | (missing) | (missing) | | Ql Strip | 02:33:07 | [facility] | | | | | | | - | | | | | | | [facility] | | | | + + + + + + + + + | Result panel 160 | + + + + + +---------+ + + | Leukocyte | 2025-07-15 | | LARGE | (missing) | (missing) | | esterase Ur | 02:33:07 | [facility] | | | | | Ql Strip | [facility] | | | | + + + +---------+ + + + + | Result panel 161 | + + + + + +---------+ + + | RBC #/area | 2025-07-15 | | 12-20 | (missing) | (missing) | | UrnS HPF | 02:33:07 | [facility] | | | | | | [facility] | | | | + + + +---------+ + + + + | Result panel 162 | + + + + + +-------+ + + | WBC #/area | 2025-07-15 | | >50 | (missing) | (missing) | | UrnS HPF | 02:33:07 | [facility] | | | | | | [facility] | | | | + + + +-------+ + + + + | Result panel 163 | + + + + + +-----+ + + | Epi Cells | 2025-07-15 | | 0 | (missing) | (missing) | | #/area UrnS | 02:33:07 | [facility] | | | | | HPF | [facility] | | | | + + + +-----+ + + + + | Result panel 164 | + + + + + + + + + | Crystals | 2025-07-15 | | NONE SEEN | (missing) | (missing) | | UrnS Micro | 02:33:07 | [facility] | | | | | | | [facility] | | | | + + + + + + + + + | Result panel 165 | + + + + + +------+ + + | Bacteria | 2025-07-15 | | 1+ | (missing) | (missing) | | #/area UrnS | 02:33:07 | [facility] | | | | | HPF | [facility] | | | | + + + +------+ + + + + | Result panel 166 | + + + + + + + + + | Claudia | 2025-07-15 | | NONE SEEN | (missing) | (missing) | | #/area UrnS | 02:33:07 | [facility] | | | | | [facility] | | - | | | | | | | [facility] | | | | + + + + + + + + + | Result panel 167 | + + + + + +-------+ + + | Bacteria Ur | 2025-07-15 | | Yes | (missing) | (missing) | | Cult | 02:33:07 | [facility] | | | | | | | - | | | | | | | [facility] | | | | + + + +-------+ + + + + | Result panel 168 | + + + + + + + + + | Urn Spec | 2025-07-15 | | CLEAN CATCH | (missing) | (missing) | | Collect Meth | 02:33:07 | [facility] | | | | | Ur | [facility] | | | | + + + + + + + + + | Result panel 169 | + + + + + + + + + | Color Ur | 2025-07-15 | | YELLOW | (missing) | (missing) | | Auto | 02:33:07 | [facility] | | | | | | [facility] | | | | + + + + + + + + + | Result panel 170 | + + + + + + + + + | Character | 2025-07-15 | | TURBID | (missing) | (missing) | | Ur | 02:33:07 | [facility] | | | | | | [facility] | | | | + + + + + + + + + | Result panel 171 | + + + + + + + + + | Glucose Ur | 2025-07-15 | | NEGATIVE | (missing) | (missing) | | Ql Strip | 02:33:07 | [facility] | | | | | | [facility] | | | | + + + + + + + + + | Result panel 172 | + + + + + + + + + | Bilirub Ur | 2025-07-15 | | NEGATIVE | (missing) | (missing) | | Ql Strip | 02:33:07 | [facility] | | | | | | [facility] | | | | + + + + + + + + + | Result panel 173 | + + + + + + + + + | Ketones Ur | 2025-07-15 | | NEGATIVE | (missing) | (missing) | | Ql Strip | 02:33:07 | [facility] | | | | + + + + + + + + + | Result panel 174 | + + + + + +---------+ + + | Sp Gr Ur | 2025-07-15 | | 1.020 | (missing) | (missing) | | Strip | 02:33:07 | [facility] | | | | | | [facility] | | | | + + + +---------+ + + + + | Result panel 175 | + + + + + +---------+ + + | Hgb Ur Ql | 2025-07-15 | | LARGE | (missing) | (missing) | | Strip | 02:33:07 | [facility] | | | | | | [facility] | | | | + + + +---------+ + + + + | Result panel 176 | + + + + + +-------+ + + | pH Ur Strip | 2025-07-15 | | 6.0 | (missing) | (missing) | | | 02:33:07 | [facility] | | | | | | [facility] | | | | + + + +-------+ + + + + | Result panel 177 | + + + + + +---------+ + + | Prot Ur | 2025-07-15 | | >=300 | (missing) | (missing) | | Strip[facility] | 02:33:07 | [facility] | | | | | | [facility] | | | | + + + +---------+ + + + + | Result panel 178 | + + + + + + + + + | | 2025-07-15 | | NORMAL | (missing) | (missing) | | Urobilinogen | 02:33:07 | [facility] | | | | | Ur | [facility] | | | | + + + + + + + + + | Result panel 179 | + + + + + + + + + | Nitrite Ur | 2025-07-15 | | NEGATIVE | (missing) | (missing) | | Ql Strip | 02:33:07 | [facility] | | | | | | [facility] | | | | + + + + + + + + + | Result panel 180 | + + + + + +---------+ + + | Leukocyte | 2025-07-15 | | LARGE | (missing) | (missing) | | esterase Ur | 02:33:07 | [facility] | | | | | Ql Strip | [facility] | | | | + + + +---------+ + + + + | Result panel 181 | + + + + + +---------+ + + | RBC #/area | 2025-07-15 | | 12-20 | (missing) | (missing) | | UrnS HPF | 02:33:07 | [facility] | | | | | | [facility] | | | | + + + +---------+ + + + + | Result panel 182 | + + + + + +-------+ + + | WBC #/area | 2025-07-15 | | >50 | (missing) | (missing) | | UrnS HPF | 02:33:07 | [facility] | | | | | | [facility] | | | | + + + +-------+ + + + + | Result panel 183 | + + + + + +-----+ + + | Epi Cells | 2025-07-15 | | 0 | (missing) | (missing) | | #/area UrnS | 02:33:07 | [facility] | | | | | HPF | [facility] | | | | + + + +-----+ + + + + | Result panel 184 | + + + + + + + + + | Crystals | 2025-07-15 | | NONE SEEN | (missing) | (missing) | | UrnS Micro | 02:33:07 | [facility] | | | | | | [facility] | | | | + + + + + + + + + | Result panel 185 | + + + + + +------+ + + | Bacteria | 2025-07-15 | | 1+ | (missing) | (missing) | | #/area UrnS | 02:33:07 | [facility] | | | | | HPF | [facility] | | | | + + + +------+ + + + + | Result panel 186 | + + + + + + + + + | Casts | 2025-07-15 | | NONE SEEN | (missing) | (missing) | | #/area UrnS | 02:33:07 | [facility] | | | | | LPF | [facility] | | | | + + + + + + + + + | Result panel 187 | + + + + + +-------+ + + | Bacteria Ur | 2025-07-15 | | Yes | (missing) | (missing) | | Cult | 02:33:07 | [facility] | | | | + + + +-------+ + + + + | Result panel 188 | + + + + + + + + + | Urn Spec | 2025-07-15 | | CLEAN CATCH | (missing) | (missing) | | Collect Meth | 02:33:07 | [facility] | | | | | Ur | [facility] | | | | + + + + + + + + + | Result panel 189 | + + + + + + + + + | Color Ur | 2025-07-15 | | YELLOW | (missing) | (missing) | | Auto | 02:33:07 | [facility] | | | | | | [facility] | | | | + + + + + + + + + | Result panel 190 | + + + + + + + + + | Character | 2025-07-15 | | TURBID | (missing) | (missing) | | Ur | 02:33:07 | [facility] | | | | | [facility] | | | | + + + + + + + + + | Result panel 191 | + + + + + + + + + | Glucose Ur | 2025-07-15 | | NEGATIVE | (missing) | (missing) | | Ql Strip | 02:33:07 | [facility] | [facility] | | | [facility] | | | | + + + + + + + + + | Result panel 192 | + + + + + + + + + | Yasmany Carver | 2025-07-15 | | NEGATIVE | (missing) | (missing) | | Ql Strip | 02:33:07 | [facility] | [facility] | [facility] | | | | + + + + + + + + + | Result panel 193 | + + + + + + + + + | Ketonejuan Ur | 2025-07-15 | | NEGATIVE | (missing) | (missing) | | Ql Strip | 02:33:07 | [facility] | [facility] | | | | + + + + + + + + + | Result panel 194 | + + + + + +---------+ + + | Sp Gr Ur | 2025-07-15 | | 1.020 | (missing) | (missing) | | Strip | 02:33:07 | [facility] | | | | + + + +---------+ + + + + | Result panel 195 | + + + + + +---------+ + + | Hgb Ur Ql | 2025-07-15 | | LARGE | (missing) | (missing) | | Strip | 02:33:07 | [facility] | | | | | | | - | | | | | | | [facility] | | | | + + + +---------+ + + + + | Result panel 196 | + + + + + +-------+ + + | pH Ur Strip | 2025-07-15 | | 6.0 | (missing) | (missing) | | | 02:33:07 | [facility] | [facility] | | [facility] | | | | + + + +-------+ + + + + | Result panel 197 | + + + + + +---------+ + + | Prot Ur | 2025-07-15 | | >=300 | (missing) | (missing) | | Strip-mCnc | 02:33:07 | [facility] | | | | | | [facility] | | | | + + + +---------+ + + + + | Result panel 198 | + + + + + + + + + | | 2025-07-15 | | NORMAL | (missing) | (missing) | | Urobilinogen | 02:33:07 | [facility] | | | | | Ur | [facility] | | | | + + + + + + + + + | Result panel 199 | + + + + + + + + + | Nitrite Ur | 2025-07-15 | | NEGATIVE | (missing) | (missing) | | Ql Strip | 02:33:07 | [facility] | | | | | | [facility] | | | | + + + + + + + + + | Result panel 200 | + + + + + +---------+ + + | Leukocyte | 2025-07-15 | | LARGE | (missing) | (missing) | | esterase Ur | 02:33:07 | [facility] | | | | | Ql Strip | [facility] | | | | + + + +---------+ + + + + | Result panel 201 | + + + + + +---------+ + + | RBC #/area | 2025-07-15 | | 12-20 | (missing) | (missing) | | [facility] | 02:33:07 | [facility] | | | [facility] | | | | + + + +---------+ + + + + | Result panel 202 | + + + + + +-------+ + + | WBC #/area | 2025-07-15 | | >50 | (missing) | (missing) | | UrnS HPF | 02:33:07 | [facility] | | | | | | [facility] | | | | + + + +-------+ + + + + | Result panel 203 | + + + + + +-----+ + + | Epi Cells | 2025-07-15 | | 0 | (missing) | (missing) | | #/area UrnS | 02:33:07 | [facility] | | | | | H[facility] | [facility] | | | | + + + +-----+ + + + + | Result panel 204 | + + + + + + + + + | Crystals | 2025-07-15 | | NONE SEEN | (missing) | (missing) | | UrnS Micro | 02:33:07 | [facility] | | | | | | [facility] | | | | + + + + + + + + + | Result panel 205 | + + + + + +------+ + + | Bacteria | 2025-07-15 | | 1+ | (missing) | (missing) | | #/area UrnS | 02:33:07 | [facility] | | | | | H[facility] | [facility] | | | | + + + +------+ + + + + | Result panel 206 | + + + + + + + + + | Casts | 2025-07-15 | | NONE SEEN | (missing) | (missing) | | #/area UrnS | 02:33:07 | [facility] | | | | | LPF [facility] | | | | + + + + + + + + + | Result panel 207 | + + + + + +-------+ + + | Bacteria Ur | 2025-07-15 | | Yes | (missing) | (missing) | | Cult | 02:33:07 | [facility] | | | | | | [facility] | | | | + + + +-------+ + + + + | Result panel 208 | + + + + + + + + + | Urn Spec | 2025-07-15 | | CLEAN CATCH | (missing) | (missing) | | Collect Meth | 02:33:07 | [facility] | | | | | Ur | [facility] | | | | + + + + + + + + + | Result panel 209 | + + + + + + + + + | Color Ur | 2025-08-02 | | YELLOW | (missing) | (missing) | | Auto | 16:00:07 | [facility] | [facility] | | | [facility] | | | | + + + + + + + + + | Result panel 210 | + + + + + +---------+ + + | Character | 2025-08-02 | | CLEAR | (missing) | (missing) | | Ur | 16:00:07 | [facility] | | | | | | [facility] | | | | + + + +---------+ + + + + | Result panel 211 | + + + + + + + + + | Glucose Ur | 2025-08-02 | | NEGATIVE | (missing) | (missing) | | Ql Strip | 16::07 | [facility] | | | | | | [facility] | | | | + + + + + + + + + | Result panel 212 | + + + + + + + + + | Bilirub Ur | 2025-08-02 | | NEGATIVE | (missing) | (missing) | | Ql Strip | 16:00:07 | [facility] | | | | | | [facility] | | | | + + + + + + + + + | Result panel 213 | + + + + + +---------+ + + | Ketones Ur | 2025-08-02 | | SMALL | (missing) | (missing) | | Ql Strip | 16:00:07 | [facility] | | | | | | [facility] | | | | + + + +---------+ + + + + | Result panel 214 | + + + + + +---------+ + + | Sp Gr Mehul | 2025-08-02 | | 1.015 | (missing) | (missing) | | Strip | 16:00:07 | [facility] | [facility] | | | | + + + +---------+ + + + + | Result panel 215 | + + + + + +---------+ + + | Hgb Ur Ql | 2025-08-02 | | LARGE | (missing) | (missing) | | Strip | 16:00:07 | [facility] | | | | + + + +---------+ + + + + | Result panel 216 | + + + + + +-------+ + + | pH Ur Strip | 2025-08-02 | | 5.5 | (missing) | (missing) | | | 16:00:07 | [facility] | [facility] | | | | + + + +-------+ + + + + | Result panel 217 | + + + + + + + + + | Prot Ur | 2025-08-02 | | NEGATIVE | (missing) | (missing) | | Strip-mCnc | 16:00:07 | [facility] | | | | | [facility] | | | | + + + + + + + + + | Result panel 218 | + + + + + + + + + | | 2025-08-02 | | NORMAL | (missing) | (missing) | | Urobilinogen | 16:00:07 | [facility] | | | | | Ur | [facility] | | | | + + + + + + + + + | Result panel 219 | + + + + + + + + + | Nitrite Ur | 2025-08-02 | | NEGATIVE | (missing) | (missing) | | Ql Strip | 16:00:07 | [facility] | | | | | [facility] | | | | + + + + + + + + + | Result panel 220 | + + + + + +---------+ + + | Leukocyte | 2025-08-02 | | SMALL | (missing) | (missing) | | esterase Ur | 16:00:07 | [facility] | | | | | Ql Strip | [facility] | | | | + + + +---------+ + + + + | Result panel 221 | + + + + + +---------+ + + | RBC #/area | 2025-08-02 | | 41-50 | (missing) | (missing) | | UrnS HPF | 16:00:07 | [facility] | [facility] | | | [facility] | | | | + + + +---------+ + + + + | Result panel 222 | + + + + + +---------+ + + | WBC #/area | 2025-08-02 | | 12-20 | (missing) | (missing) | | [facility] | 16:00:07 | [facility] | | | | + + + +---------+ + + + + | Result panel 223 | + + + + + + + + + | Epi Cells | 2025-08-02 | | SQUAMOUS 1+ | (missing) | (missing) | | #/area UrnS | 16:: | [facility] | | | | | [facility] | | | | + + + + + + + + + | Result panel 224 | + + + + + + + + + | Crystals | 2025-08-02 | | NONE SEEN | (missing) | (missing) | | [facility] | 16:: | [facility] | [facility] | | | | + + + + + + + + + | Result panel 225 | + + + + + +--------+ + + | Bacteria | 2025-08-02 | | RARE | (missing) | (missing) | | #/area UrnS | 16:00:07 | [facility] | | | | | [facility] | | | | + + + +--------+ + + + + | Result panel 226 | + + + + + + + + + | Casts | 2025-08-02 | | NONE SEEN | (missing) | (missing) | | #/area UrnS | 16:00:07 | [facility] | | | | | L[facility] | | | | + + + + + + + + + | Result panel 227 | + + + + + +-------+ + + | Bacteria Ur | 2025-08-02 | | Yes | (missing) | (missing) | | Cult | 16:00:07 | [facility] | | | [facility] | | | | + + + +-------+ + + + + | Result panel 228 | + + + + + + + + + | Urn Spec | 2025-08-02 | | CLEAN CATCH | (missing) | (missing) | | Collect Meth | 16:00:07 | [facility] | | | | | Ur | [facility] | | | | + + + + + + + Social History +--------+ + + | date | description | facility | +--------+ + + Vital Signs + + + +---------+ | date | measurement | value | units | + + + +---------+ | 2025-06-04 00:00 | BMI | 22.3 | kg/m2 | + + + +---------+ | 2025-06-04 00:00 | height_metric | 162.56 | cm | + + + +---------+ | 2025-06-04 00:00 | height_standard | 64 | in | + + + +---------+ | 2025-06-04 00:00 | weight_metric | 59 | kg | + + + +---------+ | 2025-06-04 00:00 | weight_standard | 130.07 | lb | + + + +---------+ | 2025-06-04 00:00 | weight_standard | 130.08 | lb | + + + +---------+ | 2025-06-05 00:00 | BP_diastolic | 79 | mmHg | + + + +---------+ | 2025-06-05 00:00 | BP_systolic | 137 | mmHg | + + + +---------+ | 2025-06-05 00:00 | heart_rate | 58 | /min | + + + +---------+ | 2025-06-05 00:00 | o2_saturation | 96 | % | + + + +---------+ | 2025-06-05 00:00 | respiration_rate | 16 | /min | + + + +---------+ | 2025-06-05 00:00 | temperature_metric | 36.44 | C | | | | | | + + + +---------+ | 2025-06-05 00:00 | | 97.6 | F | | | temperature_standar | | | | | d | | | + + + +---------+ | 2025-06-24 00:00 | BMI | 23.1 | kg/m2 | + + + +---------+ | 2025-06-24 00:00 | BP_diastolic | 89 | mmHg | + + + +---------+ | 2025-06-24 00:00 | BP_systolic | 154 | mmHg | + + + +---------+ | 2025-06-24 00:00 | heart_rate | 66 | /min | + + + +---------+ | 2025-06-24 00:00 | height_metric | 162.56 | cm | + + + +---------+ | 2025-06-24 00:00 | height_standard | 64 | in | + + + +---------+ | 2025-06-24 00:00 | o2_saturation | 97 | % | + + + +---------+ | 2025-06-24 00:00 | respiration_rate | 18 | /min | + + + +---------+ | 2025-06-24 00:00 | temperature_metric | 36.67 | C | | | | | | + + + +---------+ | 2025-06-24 00:00 | | 98 | F | | | temperature_standar | | | | | d | | | + + + +---------+ | 2025-06-24 00:00 | weight_metric | 61 | kg | + + + +---------+ | 2025-06-24 00:00 | weight_standard | 134.48 | lb | + + + +---------+ | 2025-06-24 00:00 | weight_standard | 134.481 | lb | + + + +---------+ | 2025-07-09 00:00 | BMI | 23.1 | kg/m2 | + + + +---------+ | 2025-07-09 00:00 | BP_diastolic | 89 | mmHg | + + + +---------+ | 2025-07-09 00:00 | BP_systolic | 154 | mmHg | + + + +---------+ | 2025-07-09 00:00 | heart_rate | 66 | /min | + + + +---------+ | 2025-07-09 00:00 | height_metric | 162.56 | cm | + + + +---------+ | 2025-07-09 00:00 | height_standard | 64 | in | + + + +---------+ | 2025-07-09 00:00 | o2_saturation | 98 | % | + + + +---------+ | 2025-07-09 00:00 | respiration_rate | 16 | /min | + + + +---------+ | 2025-07-09 00:00 | | 98.2 | F | | | temperature_standar | | | | | d | | | + + + +---------+ | 2025-07-09 00:00 | weight_metric | 61 | kg | + + + +---------+ | 2025-07-09 00:00 | weight_standard | 134.481 | lb | + + + +---------+ | 2025-07-10 00:00 | BMI | 23.1 | kg/m2 | + + + +---------+ | 2025-07-10 00:00 | BP_diastolic | 77 | mmHg | + + + +---------+ | 2025-07-10 00:00 | BP_systolic | 149 | mmHg | + + + +---------+ | 2025-07-10 00:00 | heart_rate | 63 | /min | + + + +---------+ | 2025-07-10 00:00 | height_metric | 162.56 | cm | + + + +---------+ | 2025-07-10 00:00 | height_standard | 64 | in | + + + +---------+ | 2025-07-10 00:00 | o2_saturation | 98 | % | + + + +---------+ | 2025-07-10 00:00 | respiration_rate | 16 | /min | + + + +---------+ | 2025-07-10 00:00 | | 98.1 | F | | | temperature_standar | | | | | d | | | + + + +---------+ | 2025-07-10 00:00 | weight_metric | 61 | kg | + + + +---------+ | 2025-07-10 00:00 | weight_standard | 134.481 | lb | + + + +---------+ | 2025-07-15 00:00 | BMI | 23.1 | kg/m2 | + + + +---------+ | 2025-07-15 00:00 | BP_diastolic | 78 | mmHg | + + + +---------+ | 2025-07-15 00:00 | BP_systolic | 143 | mmHg | + + + +---------+ | 2025-07-15 00:00 | heart_rate | 74 | /min | + + + +---------+ | 2025-07-15 00:00 | height_metric | 162.56 | cm | + + + +---------+ | 2025-07-15 00:00 | height_standard | 64 | in | + + + +---------+ | 2025-07-15 00:00 | o2_saturation | 100 | % | + + + +---------+ | 2025-07-15 00:00 | respiration_rate | 16 | /min | + + + +---------+ | 2025-07-15 00:00 | | 98.6 | F | | | temperature_standar | | | | | d | | | + + + +---------+ | 2025-07-15 00:00 | weight_metric | 61 | kg | + + + +---------+ | 2025-07-15 00:00 | weight_standard | 134.481 | lb | + + + +---------+ | 2025-07-20 00:00 | BMI | 22.8 | kg/m2 | + + + +---------+ | 2025-07-20 00:00 | BP_diastolic | 81 | mmHg | + + + +---------+ | 2025-07-20 00:00 | BP_systolic | 176 | mmHg | + + + +---------+ | 2025-07-20 00:00 | heart_rate | 64 | /min | + + + +---------+ | 2025-07-20 00:00 | height_metric | 162.56 | cm | + + + +---------+ | 2025-07-20 00:00 | height_standard | 64 | in | + + + +---------+ | 2025-07-20 00:00 | o2_saturation | 98 | % | + + + +---------+ | 2025-07-20 00:00 | respiration_rate | 19 | /min | + + + +---------+ | 2025-07-20 00:00 | | 98.6 | F | | | temperature_standar | | | | | d | | | + + + +---------+ | 2025-07-20 00:00 | weight_metric | 60.2 | kg | + + + +---------+ | 2025-07-20 00:00 | weight_standard | 132.718 | lb | + + + +---------+ | 2025-07-21 00:00 | BMI | 22.8 | kg/m2 | + + + +---------+ | 2025-07-21 00:00 | BP_diastolic | 78 | mmHg | + + + +---------+ | 2025-07-21 00:00 | BP_systolic | 134 | mmHg | + + + +---------+ | 2025-07-21 00:00 | heart_rate | 64 | /min | + + + +---------+ | 2025-07-21 00:00 | height_metric | 162.56 | cm | + + + +---------+ | 2025-07-21 00:00 | height_standard | 64 | in | + + + +---------+ | 2025-07-21 00:00 | o2_saturation | 99 | % | + + + +---------+ | 2025-07-21 00:00 | respiration_rate | 17 | /min | + + + +---------+ | 2025-07-21 00:00 | | 97.7 | F | | | temperature_standar | | | | | d | | | + + + +---------+ | 2025-07-21 00:00 | weight_metric | 60.2 | kg | + + + +---------+ | 2025-07-21 00:00 | weight_standard | 132.718 | lb | + + + +---------+ | 2025-08-02 00:00 | BMI | 23.5 | kg/m2 | + + + +---------+ | 2025-08-02 00:00 | BP_diastolic | 69 | mmHg | + + + +---------+ | 2025-08-02 00:00 | BP_systolic | 127 | mmHg | + + + +---------+ | 2025-08-02 00:00 | heart_rate | 64 | /min | + + + +---------+ | 2025-08-02 00:00 | height_metric | 162.56 | cm | + + + +---------+ | 2025-08-02 00:00 | height_standard | 64 | in | + + + +---------+ | 2025-08-02 00:00 | o2_saturation | 96 | % | + + + +---------+ | 2025-08-02 00:00 | respiration_rate | 16 | /min | + + + +---------+ | 2025-08-02 00:00 | | 98.6 | F | | | temperature_standar | | | | | d | | | + + + +---------+ | 2025-08-02 00:00 | weight_metric | 62.1 | kg | + + + +---------+ | 2025-08-02 00:00 | weight_standard | 136.906 | lb | + + + +---------+"
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
[2025-08-29 19:14] VITALS: BP 150/73
== END 2025-08-29 19:14 ==
LOC: ED 15:09
DX: I83.812 Varicose veins of left lower extremity with pain (principal); I12.9 Hypertensive chronic kidney disease with stage 1 through stage 4 chronic kidney disease, or unspecified chronic kidney disease; N18.9 Chronic kidney disease, unspecified; Z90.49 Acquired absence of other specified parts of digestive tract; Z88.0 Allergy status to penicillin; Z88.2 Allergy status to sulfonamides; Z88.8 Allergy status to other drugs, medicaments and biological substances; Z88.1 Allergy status to other antibiotic agents; Z79.899 Other long term (current) drug therapy
CPT/HCPCS: 93971; 99283-25